=== PATIENT | female | born 1940 | race Caucasian/White ===

== ENCOUNTER 2020-04-29 08:42 | Inpatient (IN) ==
--- OUTSIDE RECORDS SUMMARY | 2020-04-29 08:46 | External Medical Summary | Continuity of Care Document ---
:1940 Author Name Micha Nayak Address Unavailable Unavailable , Care Team Providers Name Role Phone Souleymane Yousif DO Unavailable [email or web address] Unavailable Problems Active medical history not documented Allergies and Adverse Reactions Allergy history not documented Medications Medications not documented Procedures Procedures not documented Immunizations Immunizations not documented Plan of Treatment Planned Observations Planned Goals not documented Results No Known Results Results not documented
--- OUTSIDE RECORDS SUMMARY | 2020-04-29 08:46 | External Medical Summary | Continuity of Care Document ---
:1940 Author Name Micha Nayak Address Unavailable Unavailable , Care Team Providers Name Role Phone Souleymane Yousif DO Unavailable [email or web address] Unavailable Unavailable Problems Active medical history not documented Allergies and Adverse Reactions Allergy history not documented Medications Medications not documented Procedures Procedures not documented Immunizations Immunizations not documented Plan of Treatment Planned Observations Planned Goals not documented Results No Known Results Results not documented
[2020-04-29 09:47] LABS: Hemoglobin 13.4 g/dL (12.0-16.0); Immature Granulocytes # (auto) 0.01 K/uL (0.00-0.02); Immature Granulocytes % (auto) 0.1 %; Lymphocytes # (auto) 1.38 K/uL (1.2-3.4); Lymphocytes % (auto) 14.7 %; Mean Corpuscular Hemoglobin 30.7 pg (25-34); Mean Corpuscular Hgb Conc 33.5 g/dL (32-36); Mean Corpuscular Volume 91.5 fL (80-100); Mean Platelet Volume 9.3 fL (7.4-10.4); Monocytes % (auto) 6.4 %; Neutrophils # (auto) 7.38 K/uL (1.4-6.5); Neutrophils % (auto) 78.8 %; Platelet Count 417 K/uL (130-400); RDW Coefficient of Variation 13.1 % (11.5-14.5); Red Blood Count 4.37 M/uL (4.2-5.4); White Blood Count 9.37 K/uL (4.8-10.8)
[2020-04-29 09:54] LABS: Alanine Aminotransferase 19 U/L (12-78); Albumin Level 3.5 gm/dl (3.4-5.0); Aspartate Aminotransferase 19 U/L (15-37); BUN Creatinine Ratio 21.1 (10-20); Bilirubin Direct < 0.1 mg/dl (0-0.2); Blood Urea Nitrogen 19 mg/dl (7-18); Calcium 9.2 mg/dl (8.5-10.1); Carbon Dioxide 28 mmol/L (21-32); Chloride 100 mmol/L (98-107); Est GFR (African American) 68.2; Est GFR (Non-African American) 58.8; Glucose 114 mg/dl (70-99); Lipase 408 U/L (73-393); Sodium 135 mmol/L (136-145)
[2020-04-29 09:57] LABS: Alkaline Phosphatase 77 U/L (45-117); Bilirubin,Total 0.5 mg/dl (0.2-1); Total Protein 7.6 gm/dl (6.4-8.2)
--- NOTE | 2020-04-29 10:49 | XRay Report ---
XR chest 1V portable CLINICAL HISTORY: epigastric pain COMPARISON STUDY: Chest radiograph November 17, 2015. FINDINGS: Lung volumes are normal. Lungs are clear. There is no pneumothorax or pleural effusion. Car diac size is normal. Mediastinal contours are normal. There is no evidence for pulmonary edema. Incid ental note is made of cholecystectomy clips and partially visualized lumbar spine hardware. IMPRESSION: No acute cardiopulmonary findings. ACT 112: Negative or not required by law. Electronically signed by: Sunil Call M.D. 04/29/2020 10:48 AM
[2020-04-29] MEDS ORDERED: IOVERSOL 100ml IV PRN (11:16)
--- NOTE | 2020-04-29 11:49 | CT Scan Report ---
CT OF THE ABDOMEN AND PELVIS WITH CONTRAST CLINICAL HISTORY: Epigastric pain. Bilious vomiting. COMPARISON STUDY: Upper GI series August 20, 2010. TECHNIQUE: Following IV administration of 93 mL of Optiray-320, axial images of the abdomen and pelvi s were obtained from the lung bases to the proximal femurs. Images were reviewed in the axial, sagitt al, and coronal planes. IV contrast was administered without complication. Automated exposure contro l was utilized for the study. A dose lowering technique was utilized adhering to the principles of A ALAN. CT DOSE: 260.62 mGy.cm FINDINGS: Lung bases are unremarkable. No pneumatosis, free air or portal venous gas is present. Ther e is no biliary ductal dilatation status post cholecystectomy. The spleen, adrenal glands, kidneys an d pancreas are normal. There is no peripancreatic infiltration. Chronic diverticulosis is noted. Ther e is also small bowel diverticulosis. There is no evidence for acute diverticulitis. The proximal to mid small bowel is moderately dilated and fluid-filled. A transition point within the right mid abdom en is noted on axial image 148 of 416 with small bowel feces sign. Distal small bowel is decompressed . There is mild wall thickening at the site of obstruction, a nonspecific finding. There is no lympha denopathy. Mild bladder wall thickening is noted. No suspicious osseous lesions are present. There ar e postoperative findings within the lumbar spine. A right internal hernia contains a loop of small sorin wel without resultant bowel obstruction. IMPRESSION: 1. Findings consistent with a moderate grade small bowel obstruction with transition point within the right mid abdomen. Nonspecific mild wall thickening at site of obstruction with small bowel feces si gn. 2. Loop of small bowel slightly extends into a right inguinal hernia which does not result in the obs truction. 3. Colonic and small bowel diverticulosis without evidence for acute diverticulitis. ACT 112: Negative or not required by law. Electronically signed by: Sunil Call M.D. 04/29/2020 11:47 AM
--- NOTE | 2020-04-29 13:20 | History & Physical Report ---
Date of Service April 29, 2020 Assessment & Plan (1) Bilious vomiting with nausea: (2) SBO (small bowel obstruction): This is an 80 yr old F who has a significant PMH of multiple sclerosis, Depression, osteoporosis, Dementia, neurogenic bladder occasional straight cath required who presents to ED 2/2 to N/V and weakness x 3 days. In ED pt remained hemodynamically stable. Imaging revealed moderate grade small bowel obstruction with transition point within the right mid abdomen. Nonspecific mild wall thickening at site of obstruction with small bowel feces sign. General surgery was consulted and NG tube was placed. She was hypokalemic with K of 3.0 and lipase elevated at 408. admit to [facility] continue NPO consult surgery NG tube placed - kub ordered to confirm placement repeat kub in a.m. IVF 75cc/hr + 20meq kcl monitor output prn antiemetics and analgesia pt takes tylenol #3 on daily basis and has for ~ 40 years, confirmed with PDMP try to limit narcotic given SBO follow labs (3) Electrolyte abnormality: hyponatremia and hypokalemia 135 and 3.0 respectively replete with K rider 10meq x 4 along with supplementation in IVF monitor K level (4) Multiple sclerosis: no acute flare, slowly progressive MS mostly with gait disturbance ataxia to the R with some cognitive impairment follows [facility] neurology (5) Dysthymic disorder: continue prozac when able to tolerate po (6) Osteoporosis: on calcium + vit D supplement as outpt (7) Neurogenic bladder: occassionally self caths prn monitor straight cath prn order placed (8) DVT prophylaxis: SQ heparin Q12h Disposition: admit to [facility] Follow up: PCP Dr. Lewis upon discharge Pt was seen and examined in collaboration with Dr. Weiner, please see addendum History of Present Illness Chief Complaint: N/V and weakness x 3 days. Primary Care Provider: Yinka Lewis, This is an 80 yr old F who has a significant PMH of multiple sclerosis, Depression, osteoporosis, Dementia, neurogenic bladder occasional straight cath required who presents to ED 2/2 to N/V and weakness x 3 days. Last time she tolerated PO intake was 6/4. She started noticing nausea and becoming increasingly weak. Further admits to emesis, 5 episodes yesterday, bilious emesis and last episode 0300. She presented to urgent care this morning who referred her to ED for further eval. She denies any recent f/c/s, dizziness, lightheaded, chest pain, sob, cough, palpitations, hemoptysis, hematemesis, abdominal pain, melena, hematochezia. Last BM 2-3 days ago. Takes miralax daily due to constipation. Denies any prior hx of SBO. Prior hx of abd surgeries including csection x 2, hysterectomy, appendectomy and cholecystectomy. She does admit to incontinence and HS straight cath due to neurogenic bladder from multiple back surgeries in the past. In ED pt remained hemodynamically stable. Imaging revealed moderate grade small bowel obstruction with transition point within the right mid abdomen. Nonspecific mild wall thickening at site of obstruction with small bowel feces sign. General surgery was consulted and NG tube was placed. She was hypokalemic with K of 3.0 and lipase elevated at 408. Allergies Allergy/AdvReac Type Severity Reaction Status Date / Time scopolamine Allergy Unknown JOINT SWELL Verified 04/29/20 09:36 Home Medications Home Medications Medication Instructions Recorded Confirmed Type acetaminophen-codeine 1 tab PO Q4H PRN 04/29/20 04/29/20 History aspirin 81 mg PO QAM 04/29/20 04/29/20 History calcium carbonate-vitamin D3 1 tab PO QAM 04/29/20 04/29/20 History [Calcium 600 + D(3)] fluoxetine 40 mg PO QAM 04/29/20 04/29/20 History multivitamin 1 tab PO QAM 04/29/20 04/29/20 History omeprazole magnesium [Prilosec OTC] 20 mg PO QAM 04/29/20 04/29/20 History polyethylene glycol 3350 [Miralax] 17 g PO QAM 04/29/20 04/29/20 History trazodone 50 mg PO HS 04/29/20 04/29/20 History Past Med/Surg History Medical History (Updated 04/29/20 @ 13:40 by Sara Bateman PA-C) Dysthymic disorder (Chronic) Multiple sclerosis (Chronic) Osteoporosis (Chronic) Urinary, incontinence, stress female (Chronic) Surgical History (Updated 04/29/20 @ 13:16 by Sara L. Pataky, PA-C) History of appendectomy (Resolved) History of back surgery (Resolved) "x5" History of section (Resolved) x 2 History of cholecystectomy (Resolved) History of tonsillectomy (Resolved) History of total hysterectomy (Resolved) Family History Father Stroke Coronary heart disease Mother CHF (congestive heart failure) Brother Metastatic melanoma Sister Lung cancer Social History (Updated 04/29/20 @ 13:18 by Sara Baetman PA-C) Preferred Language: Emirati Communication Ability: Effective Beliefs That Will Affect Care: Muslim Muslim Beliefs: Jehovah'S Witness- would like to see a preist marital status: Current Living Situation: Spouse current occupational status: retired Feels Safe at Home: Yes Smoking Status: Former smoker Hx Alcohol Use: Yes Alcohol type: wine Hx Substance Use: No Review of Systems Review of Systems: All systems reviewed & are unremarkable except as noted in HPI & below Physical Exam Physical Exam: Constitutional: Thin, petite, F, vitals as above, +discomfort 2/2 to NG Tube, sitting up in bed, pleasant, conversing easily Head: Normocephalic, Atraumatic Eyes: PERRL, conjunctivae normal, anicteric sclerae ENMT: external ear and nose normal, oropharynx normal +NGT Neck: trachea midline, no thyromegaly normal visual inspection Respiratory: normal respiratory effort, lungs clear to auscultation, no wheeze, rales, rhonchi. Normal insp/exp effort, no accessory muscle use Cardiovascular: RRR, no murmur, no edema Vessels: no JVD or carotid bruit Chest: normal inspection of chest Abdomen:+BS x 4, normoactive, soft, NT, no hepatosplenomegaly Musculoskeletal: no cyanosis or clubbing, extremities motor strength 5/5 Skin: no rashes, warm and dry normal turgor Neurologic: PERRL, EOMI, accommodation nl, no face palsy, no dysarthria CN's II-XI intact bilaterally and moves all extremities Psychiatric: A+Ox3, euthymic affect Lymphatic: no cervical or axillary lymphadenopathy : deferred Results & Data Results & Data ([facility]) Vital Signs (Past 12 Hours) Vital Signs Temp Pulse Pulse Resp BP BP Pulse Ox 04/29/20 12:31 81 20 160/54 H 99 04/29/20 10:43 86 20 143/68 H 98 04/29/20 08:58 77 20 143/73 H 97 04/29/20 08:52 37.0 C 82 16 120/52 L 99 Laboratory Results Short CBC 04/29/20 Range/Units 09:05 WBC 9.37 (4.8-10.8) K/uL Hgb 13.4 (12.0-16.0) g/dL Hct 40.0 (37-47) % Plt Count 417 H (130-400) K/uL BMP 04/29/20 09:05 Sodium 135 L Potassium 3.0 L Chloride 100 Carbon Dioxide 28 BUN 19 H Creatinine 0.92 Glucose 114 H Calcium 9.2 Cardiac Enzymes 04/29/20 Range/Units 09:05 Troponin I < 0.015 (0-0.045) ng/ml Liver Function 04/29/20 Range/Units 09:05 Total Bilirubin 0.5 (0.2-1) mg/dl Direct Bilirubin < 0.1 (0-0.2) mg/dl AST 19 (15-37) U/L ALT 19 (12-78) U/L Alkaline Phosphatase 77 (45-117) U/L Albumin 3.5 (3.4-5.0) gm/dl Diagnostic Findings CT Abd/pelvis: 1. Findings consistent with a moderate grade small bowel obstruction with transition point within the right mid abdomen. Nonspecific mild wall thickening at site of obstruction with small bowel feces sign. 2. Loop of small bowel slightly extends into a right inguinal hernia which does not result in the obstruction. 3. Colonic and small bowel diverticulosis without evidence for acute diverticulitis. CXR: IMPRESSION: No acute cardiopulmonary findings. Medications Administered Ioversol (Optiray 320 100ml) 93 ml IV ONCE PRN PRN Reason: Interaction Checking Stop: 05/03/20 11:15 Last Admin: 04/29/20 11:16 Dose: 93 ml Documented by: [id number] ECG Rate (beats per minute): 78 Rhythm: normal sinus Findings: + prolonged QT (471ms) Code Status & VTE Plan Code Status Full Code VTE Prophylaxis Plan VTE Prophylaxis will be ordered: Yes Supervising Physician Co-Signing Physician Notes Attending Addendum: care coordinated with NORM Ray please refer to her notes for full details, I agree with her notes patient seen and examined, records reviewed by myself as well on exam, patient seen sitting up in bed, NG tube in place, awake and alert, uncomfortable secondary to the NG tube but otherwise not in distress, pleasant Denies active abdominal pain, nausea, shortness of breath, chest pain, headache, chills no other symptoms VS noted and reviewed oriented x 3 , not in distress, speaks in sentences with no effort nor accessory muscle use normal rate, regular rhythm, no murmurs clear breath sounds bilaterally non distended, soft, hypoactive bowel sounds, nontender no bipedal edema, erythema, warmth no focal neuro deficits WBC 9.3 Hg [address] abd/pelvis: 1. Findings consistent with a moderate grade small bowel obstruction with transition point within the right mid abdomen. Nonspecific mild wall thickening at site of obstruction with small bowel feces sign. 2. Loop of small bowel slightly extends into a right inguinal hernia which does not result in the obstruction. 3. Colonic and small bowel diverticulosis without evidence for acute diverticulitis. ASSESSMENT AND PLAN 80-year-old female with history of multiple sclerosis, intermittent neurogenic bladder, other problems noted above presenting with nausea and vomiting x3 days. Small bowel obstruction, moderate grade, transition point right mid abdomen Risk factor: Previous surgeries: Cholecystectomy and sections Bowel rest, IV fluids, replete electrolytes, NG tube for decompression, repeat KUB tomorrow General surgery consulted Hypokalemia Replace with IV potassium Monitor other diagnoses and plan of care as per NORM Ray'kenneth notes Gage Weiner MD
[2020-04-29] MEDS ORDERED: ACETAMINOPHEN 1,000 MG/100 ML VIAL IV PRN (13:57)
[2020-04-29] MEDS ORDERED: MoRPHine SULFATE 2 MG/ML CARP IV PRN (13:57)
[2020-04-29] MEDS ORDERED: ONDANSETRON INJ 2 MG/ML 2 ML VIAL IV PRN (13:57)
--- NOTE | 2020-04-29 14:09 | XRay Report ---
KUB HISTORY: Status post placement of an enteric tube ng tube placement COMPARISON: CT abdomen and pelvis of same day FINDINGS: An enteric tube is noted distal tip projected over the lower chest midline in the expected location of the distal esophagus. Side-port is noted a few centimeters below the eleuterio. Advancement of at least 16 cm is recommended. Calcific plaque of the thoracic aorta arch. Interbody cassi and screw fusion and discectomy changes of the lumbar spine. Cholecystectomy. Dilated stomach and upper abdomi nal small bowel. No pneumatosis or pneumoperitoneum identified. IMPRESSION: Tip of enteric tube projects over the distal esophagus. Advancement with follow-up imaging recommende d. ACT 112: Negative or not required by law. The above report was generated using voice recognition software. It may contain grammatical, syntax o r spelling errors. Electronically signed by: Naman Pineda M.D. 04/29/2020 2:08 PM
[2020-04-29] MEDS ORDERED: ACETAMINOPHEN 65 ML IV PRN (14:16)
[2020-04-29] MEDS: FAMOTIDINE 20 MG in SYRINGE 3 ML IV SCH (14:36)
[2020-04-29] MEDS: POTASSIUM CHLORIDE / WTR 10 MEQ/100 ML PLCT IV SCH ×4 (14:37→17:50)
--- NOTE | 2020-04-29 15:59 | XRay Report ---
KUB HISTORY: NG tube advanced COMPARISON: KUB 04/29/2020. FINDINGS: The bowel gas pattern is unremarkable. There are no dilated loops of small bowel to suggest an obstruction. No renal calculi. No ureteral calculi. No pneumoperitoneum or pneumatosis. NG tube now resides within the body of the stomach. Lumbar spinal fusion hardware is again noted. Prior dieudonne cystectomy. IMPRESSION: NG tube resides within the body of the stomach. ACT 112: Negative or not required by law. Electronically signed by: Dominguez Floyd M.D. 04/29/2020 3:58 PM
--- NOTE | 2020-04-29 16:00 | Surgery Consultation ---
Date of Consultation April 29, 2020 Assessment & Plan (1) SBO (small bowel obstruction): 80 year-old female presented to emergency department with two day history of bilious projectile vomiting and weakness. CT scan showing evidence of moderate SBO in mid abdomen with transition point and small bowel wall thickening with small bowel feces sign. NGT placed given persistent vomiting. No leukocytosis. Afebrile. Abdomen soft nondistended. Plan: Conservative management recommended at this time: NPO, NGT To LIS, pain management as needed avoid narcotics if possible, IV fluids, replace potassium. advance NGT per KUB by 16 cm. Repeat KUB in am already ordered will follow along Discussed with Dr. Fernandez who is to evaluate patient later today, please see addendum for further recommendations/plan. Supervising Physician Co-Signing Physician Notes I interviewed and examined this patient and I agree with the above note. She had mild abdominal discomfort but had nausea and vomiting. CT is again noted. She feels better this afternoon. The pain is almost completely resolved. Her abdomen is not distended. She has minimal tenderness. I agree with conservative management for now. Most recent KUB from today showed a non- obstructive bowel pattern. History of Present Illness Reason for Consultation: SBO Requesting Physician: MD Husam Attending Physician: Gage Weiner MD History of Present Illness Sharon is an 80 year old female who presented to emergency department with complaint of vomiting x 2 days and weakness. She states she had ham for dinner two nights ago and was concerned it was bad. No other family members sick at home. States she had projectile vomiting mostly yellow and green in nature. Last bowel movement yesterday morning, normal and formed. 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 No blood in stools or black/tarry stools. Denies of any abdominal pain or significant abdominal bloating. She has had hysterectomy, cholecystectomy, appendectomy, and x 2. Sharon states she is feeling better now after the tube was placed. Has not vomited since admission. No abdominal pain. Not passing gas however. Compla ining of right sided sore throat, trouble swallowing with NGT tube. Allergies Allergy/AdvReac Type Severity Reaction Status Date / Time scopolamine Allergy Unknown JOINT SWELL Verified 04/29/20 09:36 Home Medications Home Medications Medication Instructions Recorded Confirmed Type acetaminophen-codeine 1 tab PO Q4H PRN 04/29/20 04/29/20 History aspirin 81 mg PO QAM 04/29/20 04/29/20 History calcium carbonate-vitamin D3 1 tab PO QAM 04/29/20 04/29/20 History [Calcium 600 + D(3)] fluoxetine 40 mg PO QAM 04/29/20 04/29/20 History multivitamin 1 tab PO QAM 04/29/20 04/29/20 History omeprazole magnesium [Prilosec OTC] 20 mg PO QAM 04/29/20 04/29/20 History polyethylene glycol 3350 [Miralax] 17 g PO QAM 04/29/20 04/29/20 History trazodone 50 mg PO HS 04/29/20 04/29/20 History Patient History Medical History Dysthymic disorder (Chronic) Multiple sclerosis (Chronic) Osteoporosis (Chronic) Urinary, incontinence, stress female (Chronic) Surgical History History of appendectomy (Resolved) History of back surgery (Resolved) "x5" History of section (Resolved) x 2 History of cholecystectomy (Resolved) History of tonsillectomy (Resolved) History of total hysterectomy (Resolved) Family History Father Stroke Coronary heart disease Mother CHF (congestive heart failure) Brother Metastatic melanoma Sister Lung cancer Social History Preferred Language: Albanian Communication Ability: Effective Beliefs That Will Affect Care: Restoration Restoration Beliefs: Presybeterian- would like to see a preist marital status: Current Living Situation: Spouse current occupational status: retired Feels Safe at Home: Yes Smoking Status: Former smoker Hx Alcohol Use: Yes Alcohol type: wine Hx Substance Use: No Review of Systems Review of Systems: All systems reviewed & are unremarkable except as noted in HPI & below Physical Exam Constitutional: WD/WN, vitals as above no acute distress Respiratory: normal respiratory effort, lungs clear to auscultation + respiratory distress Cardiovascular: RRR, no murmur, no edema Gastrointestinal (Abdomen): Inspection/Auscultation: abdomen normal to inspection; abdomen not distended and + abnormal bowel sounds Percussion/Palpation: + abdomen tender (RUQ) and abdomen soft; no guarding and abdomen not rigid Skin: no rashes, warm and dry Psychiatric: Orientation: alert and oriented x 3 Results & Data Vital Signs (Past 12 Hours) Vital Signs Temp Pulse Pulse Resp BP BP Pulse Ox 04/29/20 15:37 36.5 C 93 H 19 138/70 95 04/29/20 14:28 74 04/29/20 13:59 36.8 C 73 18 134/83 96 04/29/20 12:31 81 20 160/54 H 99 04/29/20 10:43 86 20 143/68 H 98 04/29/20 08:58 77 20 143/73 H 97 04/29/20 08:52 37.0 C 82 16 120/52 L 99 Laboratory Results 04/29/20 04/29/20 04/29/20 Range/Units 09:05 09:05 09:05 WBC 9.37 (4.8-10.8) K/uL RBC 4.37 (4.2-5.4) M/uL Hgb 13.4 (12.0-16.0) g/dL Hct 40.0 (37-47) % MCV 91.5 (80-100) fL MCH 30.7 (25-34) pg MCHC 33.5 (32-36) g/dL RDW Std Deviation 44.0 (36.4-46.3) fL RDW Coeff of Swetha 13.1 (11.5-14.5) % Plt Count 417 H (130-400) K/uL MPV 9.3 (7.4-10.4) fL Immature Gran % (Auto) 0.1 % Neut % (Auto) 78.8 % Lymph % (Auto) 14.7 % [place] % (Auto) 6.4 % Eos % (Auto) 0.0 % Baso % (Auto) 0.0 % Immature Gran # (Auto) 0.01 (0.00-0.02) K/uL Neut # (Auto) 7.38 H (1.4-6.5) K/uL Lymph # (Auto) 1.38 (1.2-3.4) K/uL [place] # (Auto) 0.60 H (0.11-0.59) K/uL Eos # (Auto) 0.00 (0-0.5) K/uL Baso # (Auto) 0.00 (0-0.2) K/uL Sodium 135 L (136-145) mmol/L Potassium 3.0 L (3.5-5.1) mmol/L Chloride 100 (98-107) mmol/L Carbon Dioxide 28 (21-32) mmol/L Anion Gap 7.0 (3-11) BUN 19 H (7-18) mg/dl Creatinine 0.92 (0.6-1.2) mg/dl Est Cr Clr Drug Dosing 35.0 ml/min Est GFR ( Amer) 68.2 Est GFR (Non-Af Amer) 58.8 BUN/Creatinine Ratio 21.1 H (10-20) Glucose 114 H (70-99) mg/dl Calcium 9.2 (8.5-10.1) mg/dl Total Bilirubin 0.5 (0.2-1) mg/dl Direct Bilirubin < 0.1 (0-0.2) mg/dl AST 19 (15-37) U/L ALT 19 (12-78) U/L Alkaline Phosphatase 77 (45-117) U/L Troponin I < 0.015 (0-0.045) ng/ml Total Protein 7.6 (6.4-8.2) gm/dl Albumin 3.5 (3.4-5.0) gm/dl Lipase 408 H (73-393) U/L Diagnostic Findings CT OF THE ABDOMEN AND PELVIS WITH CONTRAST CLINICAL HISTORY: Epigastric pain. Bilious vomiting. COMPARISON STUDY: Upper GI series August 20, 2010. TECHNIQUE: Following IV administration of 93 mL of Optiray-320, axial images of the abdomen and pelvis were obtained from the lung bases to the proximal femurs. Images were reviewed in the axial, sagittal, and coronal planes. IV contrast was administered without complication. Automated exposure control was utilized for the study. A dose lowering technique was utilized adhering to the principles of ALARA. CT DOSE: 260.62 mGy.cm FINDINGS: Lung bases are unremarkable. No pneumatosis, free air or portal venous gas is present. There is no biliary ductal dilatation status post cholecystectomy. The spleen, adrenal glands, kidneys and pancreas are normal. There is no peripancreatic infiltration. Chronic diverticulosis is noted. There is also small bowel diverticulosis. There is no evidence for acute diverticulitis. The proximal to mid small bowel is moderately dilated and fluid- filled. A transition point within the right mid abdomen is noted on axial image 148 of 416 with small bowel feces sign. Distal small bowel is decompressed. There is mild wall thickening at the site of obstruction, a nonspecific finding. There is no lymphadenopathy. Mild bladder wall thickening is noted. No suspicious osseous lesions are present. There are postoperative findings within the lumbar spine. A right internal hernia contains a loop of small bowel without resultant bowel obstruction. IMPRESSION: 1. Findings consistent with a moderate grade small bowel obstruction with transition point within the right mid abdomen. Nonspecific mild wall thickening at site of obstruction with small bowel feces sign. 2. Loop of small bowel slightly extends into a right inguinal hernia which does not result in the obstruction. 3. Colonic and small bowel diverticulosis without evidence for acute diverticulitis.
--- NOTE | 2020-04-29 17:09 | Electrocardiogram Report ---
Test Reason : Blood Pressure : / mmHG Vent. Rate : 078 BPM Atrial Rate : 078 BPM P-R Int : 172 ms QRS Dur : 086 ms QT Int : 414 ms P-R-T Axes : 068 -58 055 degrees QTc Int : 471 ms Poor data quality, interpretation may be adversely affected Normal sinus rhythm Left anterior fascicular block Abnormal ECG When compared with ECG of 03-JUN-2016 16:06, No significant change was found Confirmed by Jakub Mast ([id number]) on 04/29/2020 5:09:04 PM Referred By: REFERRED SELF Confirmed By:Jakub Mast
--- NOTE | 2020-04-29 17:37 | Emergency Department Note ---
History of Present Illness General Chief Complaint: Vomiting Stated Complaint: VOMITING Time Seen by Provider: 04/29/20 09:40 History of Present Illness Provider Complaint: abdominal pain Onset (ago): 5 day(s) Pain Consistency: constant Location: diffuse Radiation: none Severity: severe Maximum Pain Intensity: 9 Current Pain Intensity: 10 Quality: + stabbing, + aching, + sharp and + dull Relieved By: + nothing Exacerbated By: + eating Associated Symptoms: + nausea and + vomiting; no fever, no chills, no dysuria, no hematemesis, no hematochezia, no melena, no hematuria, no chest pain and no breathing difficulty Home Medications Home Medications Medication Instructions Recorded Confirmed Type acetaminophen-codeine 1 tab PO Q4H PRN 04/29/20 04/29/20 History aspirin 81 mg PO QAM 04/29/20 04/29/20 History calcium carbonate-vitamin D3 1 tab PO QAM 04/29/20 04/29/20 History [Calcium 600 + D(3)] fluoxetine 40 mg PO QAM 04/29/20 04/29/20 History multivitamin 1 tab PO QAM 04/29/20 04/29/20 History omeprazole magnesium [Prilosec OTC] 20 mg PO QAM 04/29/20 04/29/20 History polyethylene glycol 3350 [Miralax] 17 g PO QAM 04/29/20 04/29/20 History trazodone 50 mg PO HS 04/29/20 04/29/20 History Allergies Allergy/AdvReac Type Severity Reaction Status Date / Time scopolamine Allergy Unknown JOINT SWELL Verified 04/29/20 09:36 Past Med/Surg History Medical History Dysthymic disorder (Chronic) Multiple sclerosis (Chronic) Osteoporosis (Chronic) Urinary, incontinence, stress female (Chronic) Surgical History History of appendectomy (Resolved) History of back surgery (Resolved) "x5" History of section (Resolved) x 2 History of cholecystectomy (Resolved) History of tonsillectomy (Resolved) History of total hysterectomy (Resolved) Family History Father Stroke Coronary heart disease Mother CHF (congestive heart failure) Brother Metastatic melanoma Sister Lung cancer Social History Preferred Language: Ukrainian Communication Ability: Effective Beliefs That Will Affect Care: Cheondoism Cheondoism Beliefs: Church- would like to see a preist marital status: Current Living Situation: Spouse current occupational status: retired Feels Safe at Home: Yes Smoking Status: Former smoker Hx Alcohol Use: Yes Alcohol type: wine Hx Substance Use: No Review of Systems A total of 10 systems reviewed and were otherwise negative Physical Exam Vital Signs: Vital Signs - 24 hr 04/29/20 08:52 04/29/20 08:58 04/29/20 10:43 Temperature 37.0 C Temperature Source Oral Pulse Rate 82 77 Pulse Rate [Right Finger] 86 Pulse Rate from Sp O2 Sensor 78 Respiratory Rate 16 20 20 Respiratory Effort / Characteristics Non-Labored Sponta neous Respiratory Depth Normal Respiratory Patter n Regular Blood Pressure 120/52 L 143/73 H Blood Pressure [Ri ght Arm] 143/68 H Blood Pressure Janeth n 74 84 Blood Pressure Janeth n [Right Arm] 93 Pulse Oximetry 99 97 98 Oxygen Delivery Me thod Room Air Sepsis Recent Feve r Within 48 Hours No Sepsis New/Unexpla ined Change in Men zunilda Status No Sepsis Action Take n by Nursing No Action Required Physical Exam: Physical Exam GENERAL: She is oriented to person, place, and time. She appears well-developed and well-nourished. She does not appear distressed. She is holding a emesis bag that contains bilious emesis from when she threw up prior to my arrival. HENT: Exam performed. -Head: Normocephalic and atraumatic. -Right Ear: External ear normal. No mastoid tenderness. -Left Ear: External ear normal. No mastoid tenderness. -Mouth/Throat: The oropharynx is clear and moist. No trismus in the jaw. No dental abscesses or uvula swelling. No oropharyngeal exudate or tonsillar abscesses. EYES: Conjunctivae and EOM are normal. Pupils are equal, round, and reactive to light. Right eye exhibits no discharge. Left eye exhibits no discharge. No scleral icterus. NECK: Normal range of motion. Neck supple. No JVD present. No spinous process tenderness present. No carotid bruit present. No rigidity. No tracheal deviation and normal range of motion present. No Brudzinski's sign and no Kernig's sign noted. CV: Normal rate, regular rhythm, normal heart sounds and intact distal pulses. There is no peripheral edema. Palpable radial pulses bue. PULM/CHEST: Effort normal and breath sounds normal. No respiratory distress. No stridor. She has no wheezes. She has no rales. -Chest Wall: She exhibits no tenderness. ABD: The abdomen is soft. Bowel sounds are normal. She has no distension. No mass is present. Pain on palpation of the epigastric area. There is no rebound, no guarding, no Barbosa's sign and no tenderness at McBurney's point. Rovsig negative MUSC/SKEL: Normal range of motion. There is no peripheral edema, tenderness or deformity. LYMPH: No cervical adenopathy. NEURO: She is alert and oriented to person, place, and time. She has normal stre ngth. No cranial nerve deficit or sensory deficit. Coordination and gait normal. GCS eye subscore is 4. GCS verbal subscore is 5. GCS motor subscore is 6. Cerebellar tests wnl. SKIN: Skin is warm and dry. She is not diaphoretic. PSYCH: She has a normal mood and affect. Behavior is normal. Judgment and thought content normal. Course Course 1015: The patient was evaluated in room C8. A complete history and physical exam was performed. Cardiac monitoring: An order was placed for continuous cardiac monitoring. The monitor shows a rate of 90 with rhythm 1200: Vital signs stable. Labs within normal limits with exception of potassium of 3.0 thought to be due to patient's continued vomiting. CT does show small bowel obstruction. I did discuss with general surgery Mireya Borjas PA-C for Dr. Fernandez. She states that the patient should be admitted to medicine. She recommends NG tube being placed. I did discuss with [facility] hospitalist team Kadi Steiner PA-C as well as Dr. De La Vega who agreed to the admission. Administered Medications Famotidine 20 mg/ Syringe 5 mls @ 2.5 mls/min IV DAILY EDGAR Stop: 05/29/20 13:56 Last Admin: 04/29/20 14:36 Dose: 2.5 mls/min Documented by: [id number] Potassium Chloride (K Dayron / Wtr) 10 meq in 100 mls @ 100 mls/hr IV Q1H [facility] Stop: 04/29/20 17:59 Last Admin: 04/29/20 16:42 Dose: 100 mls/hr Documented by: [id number] Infusion: 04/29/20 16:32 Dose: 100 mls/hr Documented by: [id number] Admin: 04/29/20 15:32 Dose: 100 mls/hr Documented by: [id number] Infusion: 04/29/20 15:32 Dose: 100 mls/hr Documented by: [id number] Admin: 04/29/20 14:37 Dose: 100 mls/hr Documented by: [id number] Discontinued Medications Ioversol (Optiray 320 100ml) 93 ml IV ONCE PRN PRN Reason: Interaction Checking Stop: 05/03/20 11:15 Last Admin: 04/29/20 11:16 Dose: 93 ml Documented by: [id number] Medical Decision Making Laboratory Data Result diagrams: 04/29/20 09:05 04/29/20 09:05 Lab Results 04/29/20 04/29/20 04/29/20 Range/Units 09:05 09:05 09:05 WBC 9.37 (4.8-10.8) K/uL RBC 4.37 (4.2-5.4) M/uL Hgb 13.4 (12.0-16.0) g/dL Hct 40.0 (37-47) % MCV 91.5 (80-100) fL MCH 30.7 (25-34) pg MCHC 33.5 (32-36) g/dL RDW Std Deviation 44.0 (36.4-46.3) fL RDW Coeff of Swetha 13.1 (11.5-14.5) % Plt Count 417 H (130-400) K/uL MPV 9.3 (7.4-10.4) fL Immature Gran % (Auto) 0.1 % Neut % (Auto) 78.8 % Lymph % (Auto) 14.7 % [place] % (Auto) 6.4 % Eos % (Auto) 0.0 % Baso % (Auto) 0.0 % Immature Gran # (Auto) 0.01 (0.00-0.02) K/uL Neut # (Auto) 7.38 H (1.4-6.5) K/uL Lymph # (Auto) 1.38 (1.2-3.4) K/uL [place] # (Auto) 0.60 H (0.11-0.59) K/uL Eos # (Auto) 0.00 (0-0.5) K/uL Baso # (Auto) 0.00 (0-0.2) K/uL Sodium 135 L (136-145) mmol/L Potassium 3.0 L (3.5-5.1) mmol/L Chloride 100 (98-107) mmol/L Carbon Dioxide 28 (21-32) mmol/L Anion Gap 7.0 (3-11) BUN 19 H (7-18) mg/dl Creatinine 0.92 (0.6-1.2) mg/dl Est Cr Clr Drug Dosing 35.0 ml/min Est GFR ( Amer) 68.2 Est GFR (Non-Af Amer) 58.8 BUN/Creatinine Ratio 21.1 H (10-20) Glucose 114 H (70-99) mg/dl Calcium 9.2 (8.5-10.1) mg/dl Total Bilirubin 0.5 (0.2-1) mg/dl Direct Bilirubin < 0.1 (0-0.2) mg/dl AST 19 (15-37) U/L ALT 19 (12-78) U/L Alkaline Phosphatase 77 (45-117) U/L Troponin I < 0.015 (0-0.045) ng/ml Total Protein 7.6 (6.4-8.2) gm/dl Albumin 3.5 (3.4-5.0) gm/dl Lipase 408 H (73-393) U/L Imaging Data Radiologist's Impression: CT OF THE ABDOMEN AND PELVIS WITH CONTRAST CLINICAL HISTORY: Epigastric pain. Bilious vomiting. COMPARISON STUDY: Upper GI series August 20, 2010. TECHNIQUE: Following IV administration of 93 mL of Optiray-320, axial images of the abdomen and pelvis were obtained from the lung bases to the proximal femurs. Images were reviewed in the axial, sagittal, and coronal planes. IV contrast was administered without complication. Automated exposure control was utilized for the study. A dose lowering technique was utilized adhering to the principles of ALARA. CT DOSE: 260.62 mGy.cm FINDINGS: Lung bases are unremarkable. No pneumatosis, free air or portal venous gas is present. There is no biliary ductal dilatation status post cholecystectomy. The spleen, adrenal glands, kidneys and pancreas are normal. There is no peripancreatic infiltration. Chronic diverticulosis is noted. There is also small bowel diverticulosis. There is no evidence for acute diverticulitis. The proximal to mid small bowel is moderately dilated and fluid- filled. A transition point within the right mid abdomen is noted on axial image 148 of 416 with small bowel feces sign. Distal small bowel is decompressed. There is mild wall thickening at the site of obstruction, a nonspecific finding. There is no lymphadenopathy. Mild bladder wall thickening is noted. No suspicious osseous lesions are present. There are postoperative findings within the lumbar spine. A right internal hernia contains a loop of small bowel without resultant bowel obstruction. IMPRESSION: 1. Findings consistent with a moderate grade small bowel obstruction with transition point within the right mid abdomen. Nonspecific mild wall thickening at site of obstruction with small bowel feces sign. 2. Loop of small bowel slightly extends into a right inguinal hernia which does not result in the obstruction. 3. Colonic and small bowel diverticulosis without evidence for acute diverticulitis. ACT 112: Negative or not required by law. Electronically signed by: Sunil Call M.D. 04/29/2020 11:47 AM Dictated: 04/29/20 1127 Transcribed: 04/29/20 1128 ECG Data Indication: abdominal pain Rate (beats per minute): 78 Rhythm: normal sinus Findings: no ST depression and no ST elevation MDM Narrative Vital signs stable. Labs within normal limits with exception of potassium of 3.0 thought to be due to patient's continued vomiting. CT does show small bowel obstruction. I did discuss with general surgery Mireya Borjas PA-C for Dr. Fernandez. She states that the patient should be admitted to medicine. She recommends NG tube being placed. I did discuss with [facility] hospitalist team Kadi Steiner PA-C as well as Dr. De La Vega who agreed to the admission. Impression & Plan SBO (small bowel obstruction) Discharge Plan Visit Data *Final* Discharge Date/Time: 04/29/20 13:16 Chief Complaint: Vomiting Stated Complaint: VOMITING ED Provider: Javier Lebron Discharge Problem: SBO (small bowel obstruction) Patient Disposition: Admitted As Inpatient Discharge Instructions Interventions: ED Discharge Assessment Last Done: 04/29/20 13:16
[2020-04-29] MEDS: NSS + 20MEQ KCL 20 MEQ/1,000 ML BAG IV SCH (19:09)
[2020-04-29] MEDS: HEPARIN SOD 5,000 UNIT/0.5 ML VIAL SQ SCH (20:15)
[2020-04-30 01:03] LABS: Appearance Urine Cloudy (Clear); Bacteria Urine Automated 4+ (Negative); Bilirubin Urine Negative (Negative); Blood Urine Negative (Negative); Color Urine Yellow; Epithelial Cell Urine Auto >30 /lpf (0-5); Glucose Urine UA Negative (Negative); Ketones Urine 1+ (Negative); Leukocyte Esterase Urine 2+ (Negative); Nitrite Urine Positive (Negative); Protein Urine Negative (Negative); RBC Urine Automated 0-4 /hpf (0-4); Specific Gravity Urine 1.038 (1.000-1.030); Urobilinogen Urine Negative (Negative); pH Urine 6.5 (4.5-7.5)
[2020-04-30] MEDS: NSS + 20MEQ KCL 20 MEQ/1,000 ML BAG IV SCH ×3 (05:47→22:37)
--- NOTE | 2020-04-30 07:15 | XRay Report ---
KUB CLINICAL HISTORY: Small bowel obstruction. COMPARISON STUDY: CT of the abdomen and pelvis and KUB April 29, 2020. FINDINGS: Tip of nasogastric tube projects over the distal stomach. There is contrast within the blad oliva from recent contrast-enhanced CT. Several loops of mildly dilated small bowel are noted. The find ings suggest a persistent small bowel obstruction IMPRESSION: Several loops of mildly dilated small bowel which suggest a persistent small bowel obstr uction. ACT 112: Negative or not required by law. Electronically signed by: Sunil Call M.D. 04/30/2020 7:14 AM
[2020-04-30 07:43] LABS: Basophils # (auto) 0.01 K/uL (0-0.2); Basophils % (auto) 0.1 %; Eosinophils # (auto) 0.01 K/uL (0-0.5); Eosinophils % (auto) 0.1 %; Hematocrit (blood only) 39.3 % (37-47); Immature Granulocytes # (auto) 0.02 K/uL (0.00-0.02); Immature Granulocytes % (auto) 0.2 %; Lymphocytes # (auto) 1.32 K/uL (1.2-3.4); Lymphocytes % (auto) 13.9 %; Mean Corpuscular Hemoglobin 30.2 pg (25-34); Mean Corpuscular Hgb Conc 33.1 g/dL (32-36); Mean Corpuscular Volume 91.2 fL (80-100); Mean Platelet Volume 9.4 fL (7.4-10.4); Monocytes # (auto) 0.68 K/uL (0.11-0.59); Monocytes % (auto) 7.1 %; Neutrophils # (auto) 7.49 K/uL (1.4-6.5); Neutrophils % (auto) 78.6 %; Platelet Count 381 K/uL (130-400); RDW Coefficient of Variation 13.2 % (11.5-14.5); Red Blood Count 4.31 M/uL (4.2-5.4); White Blood Count 9.53 K/uL (4.8-10.8)
--- NOTE | 2020-04-30 08:10 | XRay Report ---
ESTEFANÍA CLINICAL HISTORY: NG placement COMPARISON STUDY: ESTEFANÍA April 29, 2020 at 3:39 PM. FINDINGS: The tip of the nasogastric tube is within the body of the stomach. Small bowel dilatation i s partially imaged on this exam. IMPRESSION: 1. Tip of nasogastric tube within the body of the stomach. 2. Several loops of dilated small bowel which suggest a small bowel obstruction. ACT 112: Negative or not required by law. Electronically signed by: Sunil Call M.D. 04/30/2020 8:08 AM
[2020-04-30 08:24] LABS: Albumin Level 2.9 gm/dl (3.4-5.0); BUN Creatinine Ratio 21.7 (10-20); Calcium 8.4 mg/dl (8.5-10.1); Creatinine Clr Calc Pharmacy 41.9 ml/min; Est GFR (African American) 84.5; Est GFR (Non-African American) 72.9; Magnesium 2.2 mg/dl (1.8-2.4); Potassium 3.4 mmol/L (3.5-5.1)
[2020-04-30 08:27] LABS: Albumin Globulin Ratio 0.8 (0.9-2); Bilirubin,Total 0.4 mg/dl (0.2-1); Globulin 3.6 gm/dl (2.5-4.0); Total Protein 6.5 gm/dl (6.4-8.2)
[2020-04-30] MEDS: CHLORASEPTIC 1.4% SOLN 180 ML BTL MT PRN ×2 (09:02→13:51)
[2020-04-30] MEDS: HEPARIN SOD 5,000 UNIT/0.5 ML VIAL SQ SCH ×2 (09:03→20:59)
--- NOTE | 2020-04-30 09:07 | Hospitalist Progress Note ---
Date of Service April 30, 2020 Assessment & Plan (1) Bilious vomiting with nausea: (2) SBO (small bowel obstruction): This is an 80 yr old F who has a significant PMH of multiple sclerosis, Depression, osteoporosis, Dementia, neurogenic bladder occasional straight cath required who presents to ED 2/2 to N/V and weakness x 3 days. In ED pt remained hemodynamically stable. Imaging revealed moderate grade small bowel obstruction with transition point within the right mid abdomen. Nonspecific mild wall thickening at site of obstruction with small bowel feces sign. General surgery was consulted and NG tube was placed. She was hypokalemic with K of 3.0 and lipase elevated at 408. KUB revealed persistent SBO N/V has resolved but still with abdominal pain continue NPO status, NG with Int suction appreciate surgical input continue NPO repeat kub in a.m. IVF 75cc/hr + 20meq kcl monitor output prn antiemetics and analgesia pt takes tylenol #3 on daily basis and has for ~ 40 years, confirmed with PDMP try to limit narcotic given SBO follow labs (3) Electrolyte abnormality: hyponatremia and hypokalemia hyponatremia resolved 138 today, K 3.4 give Krider 10meq kcl x 1; continue KCL in IVF monitor K level (4) Abnormal urinalysis: UA with + nitrates, leukocyte esterase, WBC, plus for bacteria but also numerous epithelial May be contaminated specimen. Patient denies symptoms although does have mild history of dementia. No fever or leukocytosis Treat empirically with 1 g Rocephin daily until culture returns Rocephin Day #1 (5) Multiple sclerosis: no acute flare, slowly progressive MS mostly with gait disturbance ataxia to the R with some cognitive impairment follows [facility] (6) Dysthymic disorder: continue prozac when able to tolerate po (7) Osteoporosis: on calcium + vit D supplement as outpt (8) Neurogenic bladder: occassionally self caths prn monitor straight cath prn order placed (9) DVT prophylaxis: SQ heparin Q12h Disposition: admit to [facility] tele Follow up: PCP Dr. Lewis upon discharge Pt was seen and examined in collaboration with Dr. Burns, please see addendum Admission and Anticipated Discharge Date Admission Date: April 29, 2020 Supervising Physician Co-Signing Physician Notes Attending addendum The patient was seen and examined in medical floor She complains to have less upper abdominal distention and/or pain Denies any nausea and or vomiting Denies any fever and/or chills On examination No apparent distress at rest Hemodynamically stable Chestclear to auscultate bilaterally Abdomensoft, mildly tender, no guarding and rigidity and bowel sounds hypoactive Extremitiesnegative for any edema Admission labs and imaging studies reviewed She was admitted with small bowel obstruction and undergoing small bowel follow- through study today Appreciate surgery input and recommendation We will continue conservative management for now Acute assessment and plan as outlined above by MAIA Graham Dr Subjective Patient seen and examined in room 284-1 with RESOURCE MANAGER at bedside. Pt was pulling at NG tube; therefore required 1:1. Follow-up small bowel obstruction hospital day #1. Patient is lying in bed and overall feels improved this morning. Her nausea has resolved and she has not had any further episodes of emesis. She continues to have right-sided abdominal pain that is worse with movement. She denies passing any flatus or belching. She further denies fever, chills, sweats, chest pain, shortness of breath, palpitations, cough, dysuria, increased urgency or frequency with urination, hematuria. She is requesting tania veto. Also complains of soreness in throat secondary to tube. Review of Systems Review of Systems: All systems reviewed & are unremarkable except as noted in HPI & below Physical Exam Physical Exam: Gen: Thin, petite, elderly, female, NAD, A&O x3 HEENT: Normocephalic, atraumatic, conjunctivae moist, sclerae anicteric, mucous membranes moist. NG tube in place with bilious drainage Lung: Clear to Auscultation bilaterally, no wheezes/rales/rhonchi Heart: Regular rate, regular rhythm, no murmurs, rubs, or gallops Abdomen: Soft, tender to palpation RLQ/RUQ, +rebound, no guarding or rigidity, ND +BS x 4 Extremities: No edema Skin: Warm, no rash, negative turgor. Results & Data Results & Data ([facility]) Vital Signs (Past 12 Hours) Vital Signs Temp Pulse Pulse Resp BP Pulse Ox 04/30/20 07:46 82 04/30/20 07:25 37.0 C 83 18 138/71 93 04/30/20 03:27 37.2 C 80 18 144/65 H 96 04/29/20 23:27 36.5 C 77 18 150/67 H 92 04/29/20 22:20 77 Laboratory Results Short CBC 04/30/20 Range/Units 06:45 WBC 9.53 (4.8-10.8) K/uL Hgb 13.0 (12.0-16.0) g/dL Hct 39.3 (37-47) % Plt Count 381 (130-400) K/uL BMP 04/30/20 06:45 Sodium 138 Potassium 3.4 L Chloride 105 Carbon Dioxide 26 BUN 17 Creatinine 0.77 Glucose 81 Calcium 8.4 L Cardiac Enzymes 04/29/20 Range/Units 09:05 Troponin I < 0.015 (0-0.045) ng/ml Liver Function 04/30/20 Range/Units 06:45 Total Bilirubin 0.4 (0.2-1) mg/dl AST 24 (15-37) U/L ALT 27 (12-78) U/L Alkaline Phosphatase 67 (45-117) U/L Albumin 2.9 L (3.4-5.0) gm/dl Urine 04/30/20 Range/Units 00:55 Urine Color Yellow Urine Appearance Cloudy A (Clear) Urine pH 6.5 (4.5-7.5) Ur Specific [place] 1.038 H (1.000-1.030) Urine Protein Negative (Negative) Urine Glucose (UA) Negative (Negative) Diagnostic Findings KUB: IMPRESSION: Several loops of mildly dilated small bowel which suggest a persistent small bowel obstruction. Medications Administered Heparin Sodium (Porcine) (Heparin Sodium (Porcine)) 5,000 units SQ Q12 [facility] Stop: 05/29/20 20:59 Last Admin: 04/30/20 09:03 Dose: 5,000 units Documented by: [id number] Cosigned by: [id number] Admin: 04/29/20 20:15 Dose: 5,000 units Documented by: [id number] Cosigned by: [id number] Potassium Chloride/Sodium Chloride (Normal Saline W/20 Meq Kcl) 20 meq in 1,000 mls @ 75 mls/hr IV .[id number] [facility] Stop: 05/29/20 13:42 Last Admin: 04/30/20 09:00 Dose: 75 mls/hr Documented by: [id number] Infusion: 04/30/20 08:29 Dose: 75 mls/hr Documented by: [id number] Admin: 04/30/20 05:47 Dose: Not Given Documented by: [id number] Admin: 04/29/20 19:09 Dose: 75 mls/hr Documented by: [id number] Famotidine 20 mg/ Syringe 5 mls @ 2.5 mls/min IV DAILY EDGAR Stop: 05/29/20 13:56 Last Admin: 04/30/20 09:09 Dose: 2.5 mls/min Documented by: [id number] Admin: 04/29/20 14:36 Dose: 2.5 mls/min Documented by: [id number] Ceftriaxone Sodium 1,000 mg/ (Dextrose) 50 mls @ 100 mls/hr IV DAILY EDGAR; Protocol Stop: 05/05/20 09:29 Last Admin: 04/30/20 09:58 Dose: 100 mls/hr Documented by: [id number] Phenol (Chloraseptic 1.4% [place]) 1 sprays MT Q1H PRN PRN Reason: Sore Throat Stop: 05/29/20 15:49 Last Admin: 04/30/20 09:02 Dose: 1 sprays Documented by: [id number] Discontinued Medications Potassium Chloride (K Dayron / Wtr) 10 meq in 100 mls @ 100 mls/hr IV Q1H [facility] Stop: 04/29/20 17:59 Last Infusion: 04/29/20 19:11 Dose: 0 mls/hr Documented by: [id number] Admin: 04/29/20 17:50 Dose: 100 mls/hr Documented by: [id number] Infusion: 04/29/20 17:42 Dose: 100 mls/hr Documented by: [id number] Admin: 04/29/20 16:42 Dose: 100 mls/hr Documented by: [id number] Infusion: 04/29/20 16:32 Dose: 100 mls/hr Documented by: [id number] Admin: 04/29/20 15:32 Dose: 100 mls/hr Documented by: [id number] Infusion: 04/29/20 15:32 Dose: 100 mls/hr Documented by: [id number] Admin: 04/29/20 14:37 Dose: 100 mls/hr Documented by: [id number] Ioversol (Optiray 320 100ml) 93 ml IV ONCE PRN PRN Reason: Interaction Checking Stop: 05/03/20 11:15 Last Admin: 04/29/20 11:16 Dose: 93 ml Documented by: [id number] ECG Rate (beats per minute): 81 Rhythm: normal sinus Additional Comments: QTC improved to 450ms
[2020-04-30] MEDS: FAMOTIDINE 20 MG in SYRINGE 3 ML IV SCH (09:09)
[2020-04-30] MEDS ORDERED: POTASSIUM CHLORIDE / WTR 10 MEQ/100 ML PLCT IV ONE (09:30)
[2020-04-30] MEDS: cefTRIAXone SODIUM 1,000 MG in DEXTROSE 5% 50 ML IV SCH (09:58)
--- NOTE | 2020-04-30 10:19 | Surgery Progress Note ---
Date of Service April 30, 2020 Assessment & Plan (1) SBO (small bowel obstruction): 80 year-old female presented to emergency department with two day history of bilious projectile vomiting and weakness. CT scan showing evidence of moderate SBO in mid abdomen with transition point and small bowel wall thickening with small bowel feces sign. NGT placed given persistent vomiting. No leukocytosis. Afebrile. Abdomen soft nondistended. 04/30/2020: NGT was replaced last evening after patient pulled, 400 cc of dark brown output since placement KUB this am showing several loops of dilated SB consistent with persistent SBO no return of bowel function n/v resolved, pain in RUQ, nondistended Plan: Plan for SBFT with contrast via NGT to evaluate if contrast reaches colon to determine if need for surgical intervention Conservative management recommended at this time: NPO, NGT To LIS, pain management as needed avoid narcotics if possible, IV fluids will follow along Dr. Fernandez examined patient who agrees with above. Supervising Physician Co-Signing Physician Notes I interviewed and examined this patient I agree with the above note. Clinically she feels better and her exam is benign. There is no tenderness. There is no distention. She has not however passed flatus or had a bowel movement. Upper GI small bowel follow-through shows some narrowing with a transition point however there is flow of contrast into the colon. We will discussed the results with her. We will planning to continue conservative management overnight and make further decision about surgical intervention tomorrow. 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 Physical Exam Constitutional: WD/WN, vitals as above no acute distress and not ill a ppearing Respiratory: normal respiratory effort Gastrointestinal (Abdomen): Inspection/Auscultation: abdomen normal to inspection and normal bowel sounds; abdomen not distended Percussion/Palpation: + abdomen tender (RUQ) and abdomen soft; no guarding and abdomen not rigid Skin: no rashes, warm and dry Psychiatric: Orientation: alert and oriented x 3 Results & Data Vital Signs (Past 12 Hours) Vital Signs Temp Pulse Pulse Resp BP Pulse Ox 04/30/20 07:46 82 04/30/20 07:25 37.0 C 83 18 138/71 93 04/30/20 03:27 37.2 C 80 18 144/65 H 96 04/29/20 23:27 36.5 C 77 18 150/67 H 92 04/29/20 22:20 77 Laboratory Results 04/30/20 04/30/20 04/30/20 Range/Units 06:45 06:45 00:55 WBC 9.53 (4.8-10.8) K/uL RBC 4.31 (4.2-5.4) M/uL Hgb 13.0 (12.0-16.0) g/dL Hct 39.3 (37-47) % MCV 91.2 (80-100) fL MCH 30.2 (25-34) pg MCHC 33.1 (32-36) g/dL RDW Std Deviation 44.0 (36.4-46.3) fL RDW Coeff of Swetha 13.2 (11.5-14.5) % Plt Count 381 (130-400) K/uL MPV 9.4 (7.4-10.4) fL Immature Gran % (Auto) 0.2 % Neut % (Auto) 78.6 % Lymph % (Auto) 13.9 % [place] % (Auto) 7.1 % Eos % (Auto) 0.1 % Baso % (Auto) 0.1 % Immature Gran # (Auto) 0.02 (0.00-0.02) K/uL Neut # (Auto) 7.49 H (1.4-6.5) K/uL Lymph # (Auto) 1.32 (1.2-3.4) K/uL [place] # (Auto) 0.68 H (0.11-0.59) K/uL Eos # (Auto) 0.01 (0-0.5) K/uL Baso # (Auto) 0.01 (0-0.2) K/uL Sodium 138 (136-145) mmol/L Potassium 3.4 L (3.5-5.1) mmol/L Chloride 105 (98-107) mmol/L Carbon Dioxide 26 (21-32) mmol/L Anion Gap 7.0 (3-11) BUN 17 (7-18) mg/dl Creatinine 0.77 (0.6-1.2) mg/dl Est Cr Clr Drug Dosing 41.9 ml/min Est GFR ( Amer) 84.5 Est GFR (Non-Af Amer) 72.9 BUN/Creatinine Ratio 21.7 H (10-20) Glucose 81 (70-99) mg/dl Calcium 8.4 L (8.5-10.1) mg/dl Magnesium 2.2 (1.8-2.4) mg/dl Total Bilirubin 0.4 (0.2-1) mg/dl AST 24 (15-37) U/L ALT 27 (12-78) U/L Alkaline Phosphatase 67 (45-117) U/L Troponin I (0-0.045) ng/ml Total Protein 6.5 (6.4-8.2) gm/dl Albumin 2.9 L (3.4-5.0) gm/dl Globulin 3.6 (2.5-4.0) gm/dl Albumin/Globulin Ratio 0.8 L (0.9-2) Urine Color Yellow Urine Appearance Cloudy A (Clear) Urine pH 6.5 (4.5-7.5) Ur Specific [place] 1.038 H (1.000-1.030) Urine Protein Negative (Negative) Urine Glucose (UA) Negative (Negative) Urine Ketones 1+ H (Negative) Urine Blood Negative (Negative) Urine Nitrite Positive A (Negative) Urine Bilirubin Negative (Negative) Urine Urobilinogen Negative (Negative) Ur Leukocyte Esterase 2+ H (Negative) Urine WBC (Auto) 5-10 H (0-5) /hpf Urine RBC (Auto) 0-4 (0-4) /hpf U Hyaline Cast (Auto) 1-5 (0-5) /lpf U Epithel Cells (Auto) >30 H (0-5) /lpf Urine Bacteria (Auto) 4+ H (Negative) Urine Yeast Not Reportable 04/29/20 Range/Units 09:05 WBC (4.8-10.8) K/uL RBC (4.2-5.4) M/uL Hgb (12.0-16.0) g/dL Hct (37-47) % MCV (80-100) fL MCH (25-34) pg MCHC (32-36) g/dL RDW Std Deviation (36.4-46.3) fL RDW Coeff of Swetha (11.5-14.5) % Plt Count (130-400) K/uL MPV (7.4-10.4) fL Immature Gran % (Auto) % Neut % (Auto) % Lymph % (Auto) % [place] % (Auto) % Eos % (Auto) % Baso % (Auto) % Immature Gran # (Auto) (0.00-0.02) K/uL Neut # (Auto) (1.4-6.5) K/uL Lymph # (Auto) (1.2-3.4) K/uL [place] # (Auto) (0.11-0.59) K/uL Eos # (Auto) (0-0.5) K/uL Baso # (Auto) (0-0.2) K/uL Sodium (136-145) mmol/L Potassium (3.5-5.1) mmol/L Chloride (98-107) mmol/L Carbon Dioxide (21-32) mmol/L Anion Gap (3-11) BUN (7-18) mg/dl Creatinine (0.6-1.2) mg/dl Est Cr Clr Drug Dosing ml/min Est GFR ( Amer) Est GFR (Non-Af Amer) BUN/Creatinine Ratio (10-20) Glucose (70-99) mg/dl Calcium (8.5-10.1) mg/dl Magnesium (1.8-2.4) mg/dl Total Bilirubin (0.2-1) mg/dl AST (15-37) U/L ALT (12-78) U/L Alkaline Phosphatase (45-117) U/L Troponin I < 0.015 (0-0.045) ng/ml Total Protein (6.4-8.2) gm/dl Albumin (3.4-5.0) gm/dl Globulin (2.5-4.0) gm/dl Albumin/Globulin Ratio (0.9-2) Urine Color Urine Appearance (Clear) Urine pH (4.5-7.5) Ur Specific [place] (1.000-1.030) Urine Protein (Negative) Urine Glucose (UA) (Negative) Urine Ketones (Negative) Urine Blood (Negative) Urine Nitrite (Negative) Urine Bilirubin (Negative) Urine Urobilinogen (Negative) Ur Leukocyte Esterase (Negative) Urine WBC (Auto) (0-5) /hpf Urine RBC (Auto) (0-4) /hpf U Hyaline Cast (Auto) (0-5) /lpf U Epithel Cells (Auto) (0-5) /lpf Urine Bacteria (Auto) (Negative) Urine Yeast Diagnostic Findings KUB CLINICAL HISTORY: Small bowel obstruction. COMPARISON STUDY: CT of the abdomen and pelvis and KUB April 29, 2020. FINDINGS: Tip of nasogastric tube projects over the distal stomach. There is contrast within the bladder from recent contrast-enhanced CT. Several loops of mildly dilated small bowel are noted. The findings suggest a persistent small bowel obstruction IMPRESSION: Several loops of mildly dilated small bowel which suggest a persistent small bowel obstruction.
--- NOTE | 2020-04-30 14:12 | Fluoroscopy Report ---
[place] small bowel follow through CLINICAL HISTORY: SBO, eval if contrast reach colon contrast via NGT COMPARISON STUDY: CT of the abdomen and pelvis April 29, 2020. KUB April 30, 2020. FLUOROSCOPY TIME: 0 seconds. FLUOROSCOPIC IMAGES: None. TECHNIQUE: Small bowel follow-through was performed. Optiray 300 diluted with water was instilled thr ough the patient's indwelling nasogastric tube. Follow up KUBs were then obtained. 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 Cholecystectomy clips are noted. Multiple loops of mildly dilated small bowel are noted. The duodenum and proximal jejunum were mildly dilated. Transition point within the right m id abdomen is noted, as shown on CT of April 29, 2020. There is suspected stool within the small bowel proximal to the transition point which suggests a small bowel feces sign. The more distal small bowel is decompressed. Contrast reached the colon. Therefore, the findings suggest a partial small bowel o bstruction. The etiology for the obstruction is not clear on this exam. IMPRESSION: Findings consistent with a partial small bowel obstruction with transition point within the mid jejunum within the right mid abdomen, as shown on prior CT. Decompressed more distal small b owel. Contrast reached the colon. The etiology for the small bowel obstruction is not clear. ACT 112: Negative or not required by law. Electronically signed by: Sunil Call M.D. 04/30/2020 2:10 PM
[2020-04-30] MEDS ORDERED: HALOPERIDOL LACTATE 5 MG/ML 1 ML VIAL IM STA ×2 (15:31→21:52)
[2020-05-01] MEDS ORDERED: HALOPERIDOL LACTATE 5 MG/ML 1 ML VIAL IM STA ×3 (01:12→16:27)
--- NOTE | 2020-05-01 05:48 | Electrocardiogram Report ---
Test Reason : Blood Pressure : / mmHG Vent. Rate : 081 BPM Atrial Rate : 081 BPM P-R Int : 162 ms QRS Dur : 076 ms QT Int : 388 ms P-R-T Axes : 071 -52 048 degrees QTc Int : 450 ms Normal sinus rhythm Left anterior fascicular block Abnormal ECG When compared with ECG of 29-APR-2020 10:44, No significant change was found Confirmed by Jakub Mast ([id number]) on 05/01/2020 5:48:08 AM Referred By: REFERRED SELF Confirmed By:Jakub Mast
[2020-05-01 06:07] LABS: Basophils # (auto) 0.01 K/uL (0-0.2); Basophils % (auto) 0.1 %; Eosinophils # (auto) 0.01 K/uL (0-0.5); Eosinophils % (auto) 0.1 %; Hematocrit (blood only) 37.5 % (37-47); Hemoglobin 12.3 g/dL (12.0-16.0); Immature Granulocytes # (auto) 0.02 K/uL (0.00-0.02); Immature Granulocytes % (auto) 0.2 %; Lymphocytes # (auto) 1.06 K/uL (1.2-3.4); Lymphocytes % (auto) 11.9 %; Mean Corpuscular Hemoglobin 30.1 pg (25-34); Mean Corpuscular Hgb Conc 32.8 g/dL (32-36); Mean Corpuscular Volume 91.7 fL (80-100); Mean Platelet Volume 9.2 fL (7.4-10.4); Monocytes # (auto) 0.49 K/uL (0.11-0.59); Monocytes % (auto) 5.5 %; Neutrophils % (auto) 82.2 %; Platelet Count 355 K/uL (130-400); RDW Coefficient of Variation 13.2 % (11.5-14.5); RDW Standard Deviation 44.1 fL (36.4-46.3); Red Blood Count 4.09 M/uL (4.2-5.4); White Blood Count 8.89 K/uL (4.8-10.8)
[2020-05-01 06:47] LABS: BUN Creatinine Ratio 30.9 (10-20); Calcium 8.3 mg/dl (8.5-10.1); Creatinine Clr Calc Pharmacy 52.8 ml/min; Est GFR (African American) 99.2; Est GFR (Non-African American) 85.6; Magnesium 2.3 mg/dl (1.8-2.4)
--- NOTE | 2020-05-01 07:16 | XRay Report ---
KUB HISTORY: Follow up study in a patient with reported small bowel obstruction SBO COMPARISON: KUB 04/30/2020 at 10:24 PM, small bowel follow-through 04/30/2020 at 10:38 AM FINDINGS: Enteric tube is noted with distal tip terminating in the expected location of the mid to di stal stomach. Cholecystectomy. Persistent dilated loops of air-filled small bowel throughout the abdo men and pelvis are noted measuring up to 3.3 cm transversely. There is progression of contrast into t he large bowel. Colonic diverticulosis. No pneumatosis or pneumoperitoneum. No definite urolith. Disc ectomy changes of the lumbar spine. Multilevel degenerative changes of the spine without acute fractu re identified. IMPRESSION: Progression of enteric contrast into the large bowel with persistent small bowel dilation suggestive of partial small bowel obstruction. ACT 112: Negative or not required by law. The above report was generated using voice recognition software. It may contain grammatical, syntax o r spelling errors. Electronically signed by: Naman Pineda M.D. 05/01/2020 7:15 AM
--- NOTE | 2020-05-01 07:29 | XRay Report ---
KUB HISTORY: ng tube placement COMPARISON: Small bowel follow-through 04/30/2020. FINDINGS: Nasogastric tube terminates in the body of the stomach. There is contrast within the colon. There are few mildly dilated loops of small bowel consistent the patient's known partial small bowel obstruction. Prior cholecystectomy. Lumbar spinal fusion hardware is again noted. No renal calculi. No ureteral calculi. No pneumoperitoneum or pneumatosis. IMPRESSION: 1. Nasogastric tube terminates in the body of the stomach. 2. A few mildly dilated fluid-filled loops of small bowel consistent with the patient's known partial small bowel obstruction. ACT 112: Negative or not required by law. Electronically signed by: Dominguez Floyd M.D. 05/01/2020 7:28 AM
[2020-05-01] MEDS: CHLORASEPTIC 1.4% SOLN 180 ML BTL MT PRN (09:04)
[2020-05-01] MEDS: cefTRIAXone SODIUM 1,000 MG in DEXTROSE 5% 50 ML IV SCH (09:05)
--- NOTE | 2020-05-01 09:42 | Hospitalist Progress Note ---
Date of Service May 01, 2020 Assessment & Plan (1) Bilious vomiting with nausea: (2) SBO (small bowel obstruction): This is an 80 yr old F who has a significant PMH of multiple sclerosis, Depression, osteoporosis, Dementia, neurogenic bladder occasional straight cath required who presents to ED 2/2 to N/V and weakness x 3 days. Pt has removed NG x 2 due to delirium, successfully replaced last evening Continue NGT with IST N/V resolved, mild abdominal pain, increased bowel sounds today continue NPO appreciate surgical input IVF 75cc/hr + 20meq kcl monitor output prn antiemetics and analgesia pt takes tylenol #3 on daily basis and has for ~ 40 years, confirmed with PDMP has not required narcotic since admission follow labs PT/OT consulted (3) Electrolyte abnormality: hyponatremia and hypokalemia resolved, continue to monitor electroytes given GI loss with NGT (4) Abnormal urinalysis: UA with + nitrates, leukocyte esterase, WBC, plus for bacteria but also numerous epithelial May be contaminated specimen. Patient denies symptoms although does have mild history of dementia. No fever or leukocytosis Treat empirically with 1 g Rocephin daily until culture returns culture still pending as of 05/01 @ 0938 Rocephin Day #2 (5) Delirium: pt with intermittent confusion and delirum in evening pt has known MS with cognitive dysfunction and dementia does not appear to be infectious source as she is afebrile, WBC WNL. She is on antibiotic for possible UTI She has not been given any narcotics. Vitals and labs are stable Suspect delirium in setting of hospitalization and acute illness Received IM haldol total of 5 mg ( 3 total doses yesterday ) and pulled NGT out twice will need frequent re orienting (6) Multiple sclerosis: no acute flare, slowly progressive MS mostly with gait disturbance ataxia to the R with some cognitive impairment follows [place] [facility] (7) Dysthymic disorder: continue prozac when able to tolerate po (8) Osteoporosis: on calcium + vit D supplement as outpt (9) Neurogenic bladder: occassionally self caths prn monitor straight cath prn order placed (10) DVT prophylaxis: SQ heparin Q12h Disposition: admit to [facility] tele Follow up: PCP Dr. Lewis upon discharge Pt was seen and examined in collaboration with Dr. Burns, please see addendum Discussed case with Ed who agrees with above assessment and treatment plan. Admission and Anticipated Discharge Date Admission Date: April 29, 2020 Supervising Physician Co-Signing Physician Notes Attending addendum The patient was seen and examined in medical floor She complains to have minimal abdominal distention without any pain Her x-rays and imaging studies showed continued small bowel obstruction She will be going for exploratory laparotomy sometime today as per general surgery She is aware about the procedure On examination Sitting on a chair without any acute distress Hemodynamically stable with blood pressure on the upper side of normal at 150/70 Chest-minimal crackles at the bases otherwise clear Heart-S1-S2, regular Abdomen-mildly distended, and mildly tender, soft, bowel sounds sluggish Extremities-negative for any edema Assessment and plan Has SBO without any improvement with conservative management We will go for exploratory laparotomy sometime today as per surgery Agree with assessment and plan as outlined above by MAIA Graham Dr Subjective Patient seen and examined in room 284-1 with nurse at bedside. Pt requiring one-to-one. Follow-up small bowel obstruction hospital day #2. Patient is lying in bed this morning somnolent. She is arousable to verbal stimulation. She is alert to self and understand she is in the hospital but otherwise delirious. Last evening she became increasingly confused and combative. She received 5 total milligrams of Haldol, last dose at 1:34 AM. She currently denies any abdominal pain, nausea. She did pull out NG tube last evening which was successfully replaced. She continues to have adequate amount of drainage. She denies any fever, chills, sweats, chest pain, shortness breath, cough, abdominal pain, flatus. Nurse at bedside states there is a incontinent BM documented x1 yesterday; however unsure if accurate. ROS unreliable given underlying confusion. Review of Systems Review of Systems: All systems reviewed & are unremarkable except as noted in HPI & below and Unobtainable due to cognitive status Physical Exam Physical Exam: Gen: Thin, petite, elderly female, somnolent but arouses to verbal stimulation, alert to self only. HEENT: Normocephalic, atraumatic, conjunctivae moist, sclerae anicteric, mucous membranes moist. NG tube in place. Lung: Clear to Auscultation bilaterally, no wheezes/rales/rhonchi Heart: Regular rate, regular rhythm, no murmurs, rubs, or gallops Abdomen: Soft, mildly tender in right upper and right lower quadrant, no rebound, no guarding, no rigidity, +BS x 4 Extremities: No edema Skin: Warm, no rash, negative turgor. Results & Data Results & Data ([facility]) Vital Signs (Past 12 Hours) Vital Signs Temp Pulse Resp BP Pulse Ox 05/01/20 07:00 36.5 C 77 120/55 L 95 04/30/20 23:50 36.5 C 89 18 140/66 97 Laboratory Results Short CBC 05/01/20 Range/Units 05:29 WBC 8.89 (4.8-10.8) K/uL Hgb 12.3 (12.0-16.0) g/dL Hct 37.5 (37-47) % Plt Count 355 (130-400) K/uL BMP 05/01/20 05:29 Sodium 141 Potassium 4.0 D Chloride 112 H Carbon Dioxide 20 L BUN 19 H Creatinine 0.61 Glucose 68 L Calcium 8.3 L Diagnostic Findings KUB: IMPRESSION: Progression of enteric contrast into the large bowel with persistent small bowel dilation suggestive of partial small bowel obstruction. SBFT: IMPRESSION: Findings consistent with a partial small bowel obstruction with transition point within the mid jejunum within the right mid abdomen, as shown on prior CT. Decompressed more distal small bowel. Contrast reached the colon. The etiology for the small bowel obstruction is not clear. Medications Administered Heparin Sodium (Porcine) (Heparin Sodium (Porcine)) 5,000 units SQ Q12 EDGAR Stop: 05/29/20 20:59 Last Admin: 04/30/20 20:59 Dose: 5,000 units Documented by: [id number] Cosigned by: [id number] Admin: 04/30/20 09:03 Dose: 5,000 units Documented by: [id number] Cosigned by: [id number] Admin: 04/29/20 20:15 Dose: 5,000 units Documented by: [id number] Cosigned by: [id number] Potassium Chloride/Sodium Chloride (Normal Saline W/20 Meq Kcl) 20 meq in 1,000 mls @ 75 mls/hr IV .[id number] EDGAR Stop: 05/29/20 13:42 Last Admin: 04/30/20 22:37 Dose: 75 mls/hr Documented by: [id number] Infusion: 04/30/20 22:37 Dose: 75 mls/hr Documented by: [id number] Infusion: 04/30/20 11:06 Dose: 75 mls/hr Documented by: [id number] Infusion: 04/30/20 10:47 Dose: 0 mls/hr Documented by: [id number] Admin: 04/30/20 09:00 Dose: 75 mls/hr Documented by: [id number] Infusion: 04/30/20 08:29 Dose: 75 mls/hr Documented by: [id number] Admin: 04/30/20 05:47 Dose: Not Given Documented by: [id number] Admin: 04/29/20 19:09 Dose: 75 mls/hr Documented by: [id number] Famotidine 20 mg/ Syringe 5 mls @ 2.5 mls/min IV DAILY EDGAR Stop: 05/29/20 13:56 Last Admin: 04/30/20 09:09 Dose: 2.5 mls/min Documented by: [id number] Admin: 04/29/20 14:36 Dose: 2.5 mls/min Documented by: [id number] Ceftriaxone Sodium 1,000 mg/ (Dextrose) 50 mls @ 100 mls/hr IV DAILY EDGAR; Protocol Stop: 05/05/20 09:29 Last Admin: 05/01/20 09:05 Dose: 100 mls/hr Documented by: [id number] Infusion: 04/30/20 10:31 Dose: 0 mls/hr Documented by: [id number] Admin: 04/30/20 09:58 Dose: 100 mls/hr Documented by: [id number] Phenol (Chloraseptic 1.4% Rogers) 1 sprays MT Q1H PRN PRN Reason: Sore Throat Stop: 05/29/20 15:49 Last Admin: 05/01/20 09:04 Dose: 1 sprays Documented by: [id number] Admin: 04/30/20 13:51 Dose: 1 sprays Documented by: [id number] Admin: 04/30/20 09:02 Dose: 1 sprays Documented by: [id number] Discontinued Medications Haloperidol Lactate (Haldol) 2.5 mg IM NOW STA Stop: 04/30/20 15:32 Last Admin: 04/30/20 15:36 Dose: 2.5 mg Documented by: [id number] Haloperidol Lactate (Haldol) 1 mg IM NOW STA Stop: 04/30/20 21:53 Last Admin: 04/30/20 22:02 Dose: 1 mg Documented by: [id number] Haloperidol Lactate (Haldol) 1 mg IM NOW STA Stop: 05/01/20 01:13 Last Admin: 05/01/20 01:34 Dose: 1 mg Documented by: [id number] Haloperidol Lactate (Haldol) 0.5 mg IM NOW STA Stop: 05/01/20 04:11 Last Admin: 05/01/20 06:48 Dose: Not Given Documented by: [id number] Potassium Chloride (K Dayron / Wtr) 10 meq in 100 mls @ 100 mls/hr IV Q1H EDGAR Stop: 04/29/20 17:59 Last Infusion: 04/29/20 19:11 Dose: 0 mls/hr Documented by: [id number] Admin: 04/29/20 17:50 Dose: 100 mls/hr Documented by: [id number] Infusion: 04/29/20 17:42 Dose: 100 mls/hr Documented by: [id number] Admin: 04/29/20 16:42 Dose: 100 mls/hr Documented by: [id number] Infusion: 04/29/20 16:32 Dose: 100 mls/hr Documented by: [id number] Admin: 04/29/20 15:32 Dose: 100 mls/hr Documented by: [id number] Infusion: 04/29/20 15:32 Dose: 100 mls/hr Documented by: [id number] Admin: 04/29/20 14:37 Dose: 100 mls/hr Documented by: [id number] Potassium Chloride (K Dayron / Wtr) 10 meq in 100 mls @ 100 mls/hr IV ONE ONE Stop: 04/30/20 10:29 Last Infusion: 04/30/20 12:07 Dose: 0 mls/hr Documented by: [id number] Admin: 04/30/20 11:05 Dose: 100 mls/hr Documented by: [id number] Ioversol (Optiray 320 100ml) 93 ml IV ONCE PRN PRN Reason: Interaction Checking Stop: 05/03/20 11:15 Last Admin: 04/29/20 11:16 Dose: 93 ml Documented by: [id number]
[2020-05-01] MEDS: FAMOTIDINE 20 MG in SYRINGE 3 ML IV SCH (09:51)
[2020-05-01] MEDS: HEPARIN SOD 5,000 UNIT/0.5 ML VIAL SQ SCH ×2 (09:53→21:06)
--- NOTE | 2020-05-01 09:54 | Surgery Progress Note ---
Date of Service May 01, 2020 Assessment & Plan (1) SBO (small bowel obstruction): 80 year-old female presented to emergency department with two day history of bilious projectile vomiting and weakness. CT scan showing evidence of moderate SBO in mid abdomen with transition point and small bowel wall thickening with small bowel feces sign. 04/30/2020: NGT was replaced last evening after patient pulled, 400 cc of dark brown output since placement KUB this am showing several loops of dilated SB consistent with persistent SBO no return of bowel function n/v resolved, pain in RUQ, nondistended 05/01/2020 SBFT showing persistent SBO mid jejunum, unknown etiology of obstruction however contrast reached colon. KUB am showing persistent SB dilatation , contrast reaches colon no return of bowel function Plan: Imaging shows partial obstruction however there has been no return of bowel fu nction in the last 2 days since admission. Discussed options of continued conservative management for surgical exploration and possible bowel resection or lysis of adhesions. Patient wanted to discuss surgery option with . She elected to proceed with surgery. Informed consent obtained keep NPO DR. Fernandez has seen patient, please see addendum for further recommendations. Supervising Physician Co-Signing Physician Notes I interviewed and examined this patient I agree with the above note. The upper GI small bowel follow-through showed flow into the colon however there is still dilated proximal small bowel with a significant partial obstruction. I discussed with the patient the options of taking the NG tube out to see if she would tolerate that versus surgical intervention. She has not passed her bowels or had flatus. We have chosen surgery. I explained to her the operation and the possible complications. She has signed a consent form after answer questions. Subjective feeling okay no flatus or bowel movement not complaining of pain this morning NGT still intact Physical Exam Constitutional: WD/WN, vitals as above no acute distress Respiratory: normal respiratory effort Gastrointestinal (Abdomen): Inspection/Auscultation: abdomen normal to inspection; abdomen not distended NGT with brown/bilious output Skin: no rashes, warm and dry Psychiatric: Orientation: alert and oriented x 3 Results & Data Vital Signs (Past 12 Hours) Vital Signs Temp Pulse Resp BP Pulse Ox 05/01/20 07:00 36.5 C 77 120/55 L 95 04/30/20 23:50 36.5 C 89 18 140/66 97 Laboratory Results 05/01/20 05/01/20 05/01/20 Range/Units 09:49 05:29 05:29 WBC 8.89 (4.8-10.8) K/uL RBC 4.09 L (4.2-5.4) M/uL Hgb 12.3 (12.0-16.0) g/dL Hct 37.5 (37-47) % MCV 91.7 (80-100) fL MCH 30.1 (25-34) pg MCHC 32.8 (32-36) g/dL RDW Std Deviation 44.1 (36.4-46.3) fL RDW Coeff of Swetha 13.2 (11.5-14.5) % Plt Count 355 (130-400) K/uL MPV 9.2 (7.4-10.4) fL Immature Gran % (Auto) 0.2 % Neut % (Auto) 82.2 % Lymph % (Auto) 11.9 % Band[place] % (Auto) 5.5 % Eos % (Auto) 0.1 % Baso % (Auto) 0.1 % Immature Gran # (Auto) 0.02 (0.00-0.02) K/uL Neut # (Auto) 7.30 H (1.4-6.5) K/uL Lymph # (Auto) 1.06 L (1.2-3.4) K/uL Band[place] # (Auto) 0.49 (0.11-0.59) K/uL Eos # (Auto) 0.01 (0-0.5) K/uL Baso # (Auto) 0.01 (0-0.2) K/uL Sodium 141 (136-145) mmol/L Potassium 4.0 D (3.5-5.1) mmol/L Chloride 112 H (98-107) mmol/L Carbon Dioxide 20 L (21-32) mmol/L Anion Gap 9.0 (3-11) BUN 19 H (7-18) mg/dl Creatinine 0.61 (0.6-1.2) mg/dl Est Cr Clr Drug Dosing 52.8 ml/min Est GFR ( Amer) 99.2 Est GFR (Non-Af Amer) 85.6 BUN/Creatinine Ratio 30.9 H (10-20) Glucose 68 L (70-99) mg/dl POC Glucose 97 (70-99) mg/dl Calcium 8.3 L (8.5-10.1) mg/dl Magnesium 2.3 (1.8-2.4) mg/dl Diagnostic Findings FL small bowel follow through CLINICAL HISTORY: SBO, eval if contrast reach colon contrast via NGT COMPARISON STUDY: CT of the abdomen and pelvis April 29, 2020. KUB April 30, 2020. FLUOROSCOPY TIME: 0 seconds. FLUOROSCOPIC IMAGES: None. TECHNIQUE: Small bowel follow-through was performed. Optiray 300 diluted with water was instilled through the patient's indwelling nasogastric tube. Follow up KUBs were then obtained. FINDINGS: A rn tele KUB was obtained prior to this exam which demonstrated tip of nasogastric tube within the distal stomach. Cholecystectomy clips are noted. Multiple loops of mildly dilated small bowel are noted. The duodenum and proximal jejunum were mildly dilated. Transition point within the right mid abdomen is noted, as shown on CT of April 29, 2020. There is suspected stool within the small bowel proximal to the transition point which suggests a small bowel feces sign. The more distal small bowel is decompressed. Contrast reached the colon. Therefore, the findings suggest a partial small bowel obstruction. The etiology for the obstruction is not clear on this exam. IMPRESSION: Findings consistent with a partial small bowel obstruction with transition point within the mid jejunum within the right mid abdomen, as shown on prior CT. Decompressed more distal small bowel. Contrast reached the colon. The etiology for the small bowel obstruction is not clear. KUB 05/01/2020 HISTORY: Follow up study in a patient with reported small bowel obstruction SBO COMPARISON: KUB 04/30/2020 at 10:24 PM, small bowel follow-through 04/30/2020 at 10:38 AM FINDINGS: Enteric tube is noted with distal tip terminating in the expected location of the mid to distal stomach. Cholecystectomy. Persistent dilated loops of air-filled small bowel throughout the abdomen and pelvis are noted measuring up to 3.3 cm transversely. There is progression of contrast into the large bowel. Colonic diverticulosis. No pneumatosis or pneumoperitoneum. No definite urolith. Discectomy changes of the lumbar spine. Multilevel degenerative changes of the spine without acute fracture identified. IMPRESSION: Progression of enteric contrast into the large bowel with persistent small bowel dilation suggestive of partial small bowel obstruction.
[2020-05-01] MEDS ORDERED: PROPOFOL IV EMULSION 10 MG/ML 20 ML VIAL IV ONE (12:30)
[2020-05-01] MEDS ORDERED: fentaNYL citrate 100 MCG/2 ML VIAL ONE ×2 (12:30→14:37)
[2020-05-01] MEDS ORDERED: ROCURONIUM BROMIDE 10 MG/ML 5 ML VIAL IV ONE (12:30)
[2020-05-01] MEDS ORDERED: LIDOCAINE HCL 2% 2 ML VIAL/AMP(20MG/ML) INFIL ONE (12:30)
--- NOTE | 2020-05-01 13:14 | Anesthesiology Consultation ---
Date of Service May 01, 2020 Assessment & Plan (1) Encounter for pre-operative examination: Chart Review Chart Review: Acceptable Risk for Surgery and Patient NOT seen in Pre Admission Testing Consults Requested none ASA ASA3 Proposed Anesthesia Anesthesia Type: General Risk / Benefits Reviewed With: PT / POA / Parent / Guardian, Accepts Plan and In formed Consent Obtained History Surgery Operation Date: 05/01/20 07:00 Proposed Procedures p Exploratory Laparotomy, Possible Bowel Resection - Nishant Fernandez MD Height/Weight Height: 5 ft Weight: 53.524 kg Allergies Allergy/AdvReac Type Severity Reaction Status Date / Time scopolamine Allergy Unknown JOINT SWELL Verified 04/29/20 09:36 Medications Home Medications Medication Instructions Recorded Confirmed Last Taken acetaminophen-codeine 1 tab PO Q4H PRN 04/29/20 04/29/20 04/24/20 aspirin 81 mg PO QAM 04/29/20 04/29/20 04/24/20 calcium carbonate-vitamin D3 1 tab PO QAM 04/29/20 04/29/20 04/24/20 [Calcium 600 + D(3)] fluoxetine 40 mg PO QAM 04/29/20 04/29/20 04/24/20 multivitamin 1 tab PO QAM 04/29/20 04/29/20 04/24/20 omeprazole magnesium [Prilosec OTC] 20 mg PO QAM 04/29/20 04/29/20 04/24/20 polyethylene glycol 3350 [Miralax] 17 g PO QAM 04/29/20 04/29/20 04/24/20 trazodone 50 mg PO HS 04/29/20 04/29/20 04/24/20 Active Medications Generic Name Dose Route Start Last Admin Trade Name Freq PRN Reason Stop Dose Admin Heparin Sodium (Porcine) 5,000 units 04/29/20 21:00 05/01/20 09:53 Heparin Sodium (Porcine) SQ 05/29/20 20:59 5,000 units Q12 EDGAR Administration Potassium Chloride/Sodium Chloride 20 meq in 1,000 mls @ 75 mls/hr 04/29/20 13:43 05/01/20 11:39 Normal Saline W/20 Meq Kcl IV 05/29/20 13:42 0 mls/hr .[id number] EDGAR Infusion Famotidine 20 mg/ Syringe 5 mls @ 2.5 mls/min 04/29/20 13:57 05/01/20 09:51 IV 05/29/20 13:56 2.5 mls/min DAILY EDGAR Administration Ceftriaxone Sodium 1,000 mg/ 50 mls @ 100 mls/hr 04/30/20 09:30 05/01/20 10:16 Dextrose IV 05/05/20 09:29 Infused DAILY EDGAR Infusion Protocol Phenol 1 sprays 04/29/20 15:50 05/01/20 09:04 Chloraseptic 1.4% [place] 05/29/20 15:49 1 sprays Q1H PRN Administration Sore Throat NPO Last Intake of Fluids Comment: per patient has been about a week Last Intake of Solids Comment: per patient has been about a week Past Medical History Medical History Dysthymic disorder (Chronic) Multiple sclerosis (Chronic) Osteoporosis (Chronic) Urinary, incontinence, stress female (Chronic) Exercise / Class Metabolic Activity II 4-5 Yardwork/Stairs/Walk up hill Past Family History Family History Father Stroke Coronary heart disease Mother CHF (congestive heart failure) Brother Metastatic melanoma Sister Lung cancer Past Surgical History Surgical History History of appendectomy (Resolved) History of back surgery (Resolved) "x5" History of section (Resolved) x 2 History of cholecystectomy (Resolved) History of tonsillectomy (Resolved) History of total hysterectomy (Resolved) Past Anesthesia History No Hx of Anesthesia Complications and No Family Hx of Anesthesia Complications History of PONV No Hx of PONV and No Hx of Motion Sickness Social History Smoking Status: Former smoker Hx Alcohol Use: Yes Alcohol type: wine alcohol intake frequency: holidays/special occasions only Hx Substance Use: No Physical Exam Vital Signs Last Vital Signs Temp 36.7 C 05/01/20 11:50 Pulse 82 05/01/20 11:50 Resp 20 05/01/20 11:50 BP 158/70 H 05/01/20 11:50 Pulse Ox 97 05/01/20 11:50 ENMT Mouth: no dentition abnormality Thyromental Distance: > or= 3.5 Finger Breadths Mallampati Class: II Mouth / Teeth: 1. MISSING NG tube in place Neck normal visual inspection Respiratory normal respiratory effort Auscultation: lungs clear to auscultation bilaterally Cardiovascular Rate/Rhythm: regular rate and regular rhythm Psychiatric Orientation: alert Testing Laboratory Results 05/01/20 05:29 05/01/20 05:29 Urine Color Yellow 04/30/20 00:55 Urine Appearance Cloudy (Clear) A 04/30/20 00:55 Urine pH 6.5 (4.5-7.5) 04/30/20 00:55 Ur Specific [place] 1.038 (1.000-1.030) H 04/30/20 00:55 Urine Protein Negative (Negative) 04/30/20 00:55 Urine Glucose (UA) Negative (Negative) 04/30/20 00:55 Urine Ketones 1+ (Negative) H 04/30/20 00:55 Urine Nitrite Positive (Negative) A 04/30/20 00:55 Ur Leukocyte Esterase 2+ (Negative) H 04/30/20 00:55 Urine WBC (Auto) 5-10 /hpf (0-5) H 04/30/20 00:55 Urine RBC (Auto) 0-4 /hpf (0-4) 04/30/20 00:55 U Hyaline Cast (Auto) 1-5 /lpf (0-5) 04/30/20 00:55 U Epithel Cells (Auto) >30 /lpf (0-5) H 04/30/20 00:55 Urine Bacteria (Auto) 4+ (Negative) H 04/30/20 00:55 04/30/20 00:55 Urine Culture - Preliminary Urine,Clean Catch Escherichia coli 05/01/20 09:49 POC Glucose 97
[2020-05-01] MEDS ORDERED: ONDANSETRON INJ 2 MG/ML 2 ML VIAL ONE (13:55)
[2020-05-01] MEDS ORDERED: SUCCINYLCHOLINE CHLORIDE 20 MG/ML 10 ML VIAL IV ONE (13:55)
[2020-05-01] MEDS ORDERED: PHENYLEPHRINE HCL 10 MG/ML VIAL ONE (13:55)
[2020-05-01] MEDS ORDERED: BUPIVACAINE 0.5 % 5 MG/1 ML MPF 30ML VIAL ONE (14:31)
--- NOTE | 2020-05-01 15:06 | Post Operative Brief Note ---
Immediate Post Op Note v1 Date of Surgery May 01, 2020 Pre & Post Diagnosis Operation Date: 05/01/20 07:00 Pre-Op Diagnosis: Partial Small Bowel Obstruction Post-Op Diagnosis: Partial Small Bowel Obstruction I identified the patient and participated in the time-out.: Yes Procedure Operation Date: 05/01/20 07:00 Actual Procedures p Exploratory Laparotomy, with Removal of Inspissated Food Products (Not Applicable) - Nishant Fernandez MD Surgeon Nishant Fernandez MD Cae Engineer Mireya Ba PA-C Estimated Blood Loss 5 Findings Consistent with Post-Op Diagnosis
[2020-05-01] MEDS ORDERED: fentaNYL citrate 100 MCG/2 ML VIAL IV PRN (15:12)
[2020-05-01] MEDS ORDERED: ATROPINE SULFATE 0.1 MG/ML 10ML SYR IV PRN (15:12)
[2020-05-01] MEDS ORDERED: ONDANSETRON INJ 2 MG/ML 2 ML VIAL IV PRN (15:12)
[2020-05-01] MEDS ORDERED: ePHEDrine sulfate 50 MG/ML AMP IV PRN (15:12)
--- NOTE | 2020-05-01 15:48 | Anesthesiology Progress Note ---
Date of Service May 01, 2020 Anesthesia Post Procedure Vital Signs Vital Signs: Temp Pulse Pulse Pulse Pulse Resp BP 05/01/20 15:40 97.5 F L 89 13 05/01/20 15:30 90 17 05/01/20 15:20 83 14 05/01/20 15:10 82 17 05/01/20 15:00 78 12 05/01/20 14:53 97.5 F L 85 13 05/01/20 11:50 98.1 F 82 20 05/01/20 10:45 97.9 F 81 141/63 H 05/01/20 08:00 76 05/01/20 07:00 97.7 F 77 04/30/20 23:50 97.7 F 89 18 04/30/20 16:00 83 BP Pulse Ox 05/01/20 15:40 156/75 H 98 05/01/20 15:30 160/89 H 100 05/01/20 15:20 142/98 H 100 05/01/20 15:10 145/80 H 100 05/01/20 15:00 174/69 H 100 05/01/20 14:53 184/102 H 100 05/01/20 11:50 158/70 H 97 05/01/20 10:45 98 05/01/20 08:00 05/01/20 07:00 120/55 L 95 04/30/20 23:50 140/66 97 04/30/20 16:00 Pain Intensity Abdomen: Pain Intensity: 0 Transfer of Care Handoff Completed per policy Notes Mental Status: alert / awake / arousable and participated in evaluation Patient Amnestic to Procedure: Yes Nausea / Vomiting: adequately controlled Pain: adequately controlled Airway Patency, RR, SpO2: stable & adequate BP & HR: stable & adequate Hydration State: stable & adequate Anesthetic Complications: no major complications apparent and Pt Satisfied with anesthetic care
[2020-05-01] MEDS: MoRPHine SULFATE 4 MG/ML 1 ML CARP\\VIAL IV PRN ×2 (17:30→20:57)
[2020-05-01] MEDS: NSS + 20MEQ KCL 20 MEQ/1,000 ML BAG IV SCH (17:33)
--- NOTE | 2020-05-01 17:45 | Operative Report (OR) ---
DATE OF OPERATION: 05/01/2020 PREOPERATIVE DIAGNOSIS: Small-bowel obstruction. POSTOPERATIVE DIAGNOSIS: Small-bowel obstruction. PROCEDURE: Exploratory laparotomy with removal of inspissated thickened food creating obstruction. SURGEON: Nishant Fernandez MD. FLOWER GROWER: Mireya Ba PA-C. FINDINGS: Upon opening the abdomen, there was very little in the way of adhesion. There were some adhesions of the omentum to the anterior abdominal wall, but those were easily taken down. She had 2 areas of jejunal diverticula without evidence of diverticulitis. The CAT scan indicated that the area of partial obstruction was in the mid jejunum. I was able to identify a thickened proximal bowel and decompressed distal bowel. I then began to eviscerate the distal bowel working proximally. There was an area of bowel where there was a clear demarcation between the proximal dilated bowel and the distal decompressed bowel. That was palpated and there was identified thickened food material within the lumen. I then chose a site on the proximal bowel and about 2 cm from the inspissated food, I performed an enterotomy longitudinally and opened it enough that I could then milk the inspissated food back to that enterotomy and remove it little bit by little bit until it was completely removed. I then irrigated the proximal and distal small bowel and removed the irrigation. The mucosa appeared normal. The enterotomy was then closed transversely with an inner layer of 3-0 chromic in a Polina fashion with overlying Lembert sutures of 3-0 silk. This was then placed back into the abdomen and the omentum was brought down over the incision. There were no other areas of obstruction identified. The fascia was closed with running #1 PDS and the skin was closed with waleska. The skin was anesthetized with 0.5% Marcaine. Estimated blood loss was 5 mL. Sponge, needle and instrument counts were correct prior to closure. The skin was cleansed, dried, and a dressing placed. The physician therapy administrative assistant was present for the whole case. She helped with the opening, retraction and closure of the enterotomy, and closure of the abdomen as well as closure of skin and placement of dressings. I attest to the content of the Intraoperative Record and any orders documented therein. Any exception s are noted below.
[2020-05-02] MEDS: NSS + 20MEQ KCL 20 MEQ/1,000 ML BAG IV SCH (03:18)
[2020-05-02 06:08] LABS: Hematocrit (blood only) 37.6 % (37-47); Hemoglobin 12.1 g/dL (12.0-16.0); Immature Granulocytes # (auto) 0.04 K/uL (0.00-0.02); Immature Granulocytes % (auto) 0.3 %; Lymphocytes # (auto) 0.85 K/uL (1.2-3.4); Lymphocytes % (auto) 5.8 %; Mean Corpuscular Hemoglobin 30.1 pg (25-34); Mean Corpuscular Hgb Conc 32.2 g/dL (32-36); Mean Corpuscular Volume 93.5 fL (80-100); Mean Platelet Volume 9.2 fL (7.4-10.4); Monocytes # (auto) 0.45 K/uL (0.11-0.59); Monocytes % (auto) 3.1 %; Neutrophils # (auto) 13.19 K/uL (1.4-6.5); Neutrophils % (auto) 90.8 %; Platelet Count 365 K/uL (130-400); RDW Coefficient of Variation 13.9 % (11.5-14.5); RDW Standard Deviation 47.5 fL (36.4-46.3); Red Blood Count 4.02 M/uL (4.2-5.4); White Blood Count 14.53 K/uL (4.8-10.8)
[2020-05-02 06:41] LABS: BUN Creatinine Ratio 20.1 (10-20); Calcium 7.8 mg/dl (8.5-10.1); Creatinine Clr Calc Pharmacy 44.8 ml/min; Est GFR (African American) 91.7; Est GFR (Non-African American) 79.1; Potassium 4.4 mmol/L (3.5-5.1)
[2020-05-02] MEDS ORDERED: bisacodyL 10 MG SUPP PR ONE (08:00)
[2020-05-02] MEDS: FAMOTIDINE 20 MG in SYRINGE 3 ML IV SCH (08:17)
[2020-05-02] MEDS: HEPARIN SOD 5,000 UNIT/0.5 ML VIAL SQ SCH (08:17)
[2020-05-02] MEDS: cefTRIAXone SODIUM 1,000 MG in DEXTROSE 5% 50 ML IV SCH (08:18)
--- NOTE | 2020-05-02 08:30 | Surgery Progress Note ---
Date of Service May 02, 2020 Assessment & Plan (1) SBO (small bowel obstruction): 80 year-old female presented to emergency department with two day history of bilious projectile vomiting and weakness. CT scan showing evidence of moderate SBO in mid abdomen with transition point and small bowel wall thickening with small bowel feces sign. POD # 1 s/p ex lap, enterotomy removal of retained food products/stool ball -vitals stable, afebrile, postop leukocytosis - adequate urine output - NGT- 150 cc last shift - no return of bowel function yet Plan: Continue NPO and NGT to LIS Dulcolax to be given this am Suggest IV tylenol instead of IV Morphine given age and dementia as needed for pain Continue Haq as she straight caths at home Continue medical management incentive spirometry scds for dvt prophylaxis pt/ot consults DR. Fernandez has seen patient and examined patient agrees with above Subjective somewhat confused this am, tired, sleeping 1:1 at bedside keeps asking if she should straight cath herself no flatus Physical Exam Constitutional: WD/WN, vitals as above no acute distress Respiratory: normal respiratory effort; no respiratory distress Gastrointestinal (Abdomen): Inspection/Auscultation: abdomen normal to inspection; abdomen not distended Percussion/Palpation: + abdomen tender (mild at incision site) and abdomen soft; no guarding and abdomen not rigid NGT with dark brown output Skin: no rashes, warm and dry + incision (midline incision covered with dry dressing) Psychiatric: Orientation: alert Results & Data Vital Signs (Past 12 Hours) Vital Signs Temp Pulse Pulse Resp BP Pulse Ox 05/02/20 07:00 36.4 C L 86 16 147/77 H 98 05/02/20 03:03 36.9 C 87 16 101/63 97 05/02/20 00:32 93 H 05/01/20 22:58 37.3 C 102 H 16 121/69 97 05/01/20 21:58 37 C 102 H 20 102/64 96 05/01/20 21:00 36.6 C 110 H 20 124/72 97
[2020-05-02] MEDS ORDERED: ACETAMINOPHEN 1000 MG/100 ML IV IV PRN (09:30)
--- NOTE | 2020-05-02 10:08 | Hospitalist Progress Note ---
Date of Service May 02, 2020 Assessment & Plan (1) SBO (small bowel obstruction): This is an 80 yr old F who has a significant PMH of multiple sclerosis, Depression, osteoporosis, Dementia, neurogenic bladder occasional straight cath required who presents to ED 2/2 to N/V and weakness x 3 days. POD #1 /p ex lap, enterotomy removal of retained food products/stool ball by Dr. Fernandez continue NGT to LIS - 150cc output last shift IV APAP for pain control, avoid narcotics given delirium continue IVF Appreciate surgery recommendations PT/OT on board (2) UTI (urinary tract infection): Culture grew > 100k E. coli and alpha strep continue ceftriaxone day #3 of 5 (3) Leukocytosis: wbc 14k currently on antibiotics for UTI likely in setting of post op state (4) Electrolyte abnormality: hyponatremia and hypokalemia resolved, continue to monitor electroytes given GI loss with NG K 4.4 (5) Abnormal urinalysis: UA with + nitrates, leukocyte esterase, WBC, plus for bacteria but also numerous epithelial May be contaminated specimen. Patient denies symptoms although does have mild history of dementia. No fever or leukocytosis Treat empirically with 1 g Rocephin daily until culture returns culture still pending as of 05/01 @ 0938 Rocephin Day #2 (6) Delirium: pt with intermittent confusion and delirum in evening pt has known MS with cognitive dysfunction and dementia does not appear to be infectious source as she is afebrile, WBC WNL. She is on antibiotic for UTI She has not been given any narcotics. Vitals and labs are stable expect delirium to worsen given use of anesthetics will need frequent re orienting (7) Multiple sclerosis: no acute flare, slowly progressive MS mostly with gait disturbance ataxia to the R with some cognitive impairment follows [facility] (8) Dysthymic disorder: continue prozac when able to tolerate po (9) Osteoporosis: on calcium + vit D supplement as outpt (10) Neurogenic bladder: occassionally self caths prn rosario cath in place (11) DVT prophylaxis: Heparin d/c 2/2 to procedure, SCDs per surgery Disposition: admitted to [facility] tele Follow up: PCP Dr. Lewis upon discharge Pt was seen and examined in collaboration with Dr. Burns, please see addendum Admission and Anticipated Discharge Date Admission Date: April 29, 2020 Supervising Physician Co-Signing Physician Notes Attending addendum Patient was seen and examined today in the medical floor He is a status post laparotomy for SBO Required more IV fluid for postoperative tachycardia likely secondary to dehydration Complains to have some pain but no other distress On examination In looking with stable hemodynamically Chest-clear Abdomen-slightly distended, soft and tender with diminished bowel sounds Labs and imaging studies noted SBO status post laparoscopic procedure as mentioned by surgical team Agree with assessment and plan as outlined above by MAIA Payan Dr Subjective Patient seen and examined in room 284-1 with nurse at bedside. Pt requiring one-to-one. Follow-up small bowel obstruction hospital day #3, Post op exp lap day #1. Patient is lying in bed, sleeping. Arouses to verbal stimulation. ROS unreliable given confusion. She denies any abdominal pain, nausea, vomiting, flatus. Rosario catheter still intact. Continues to have NG tube in place. One-to-one still at bedside. Review of Systems Review of Systems: Unobtainable due to cognitive status Physical Exam Physical Exam: Gen: Thin, petite, elderly, female, drowsy but arouses to verbal stimulation, A&O x2, NAD HEENT: Normocephalic, atraumatic, conjunctivae moist, sclerae anicteric, mucous membranes dry. Lung: Clear to Auscultation bilaterally, no wheezes/rales/rhonchi Heart: Regular rate, regular rhythm, no murmurs, rubs, or gallops Abdomen: Soft, NT, +incision waleska CDI, ND, absent BS Extremities: No edema Skin: Warm, no rash, negative turgor. : +rosario cath in place Results & Data Results & Data ([facility]) Vital Signs (Past 12 Hours) Vital Signs Temp Pulse Pulse Resp BP Pulse Ox 05/02/20 07:00 36.4 C L 86 16 147/77 H 98 05/02/20 03:03 36.9 C 87 16 101/63 97 05/02/20 00:32 93 H 05/01/20 22:58 37.3 C 102 H 16 121/69 97
[2020-05-02] MEDS: SODIUM CHLORIDE 0.9% 1000ML 1,000 ML IV SCH (11:01)
[2020-05-02] MEDS: MoRPHine SULFATE 4 MG/ML 1 ML CARP\\VIAL IV PRN (12:19)
[2020-05-03] MEDS: SODIUM CHLORIDE 0.9% 1000ML 1,000 ML IV SCH ×2 (00:21→13:04)
--- NOTE | 2020-05-03 07:02 | Surgery Progress Note ---
Date of Service May 03, 2020 Assessment & Plan (1) SBO (small bowel obstruction): Some NG output but appears to be nonbilious Abdomen is mildly distended We will try clamping her NG tube and hopefully she can be mobilized Check a.m. labs No acute changes patient appears to be stable Results & Data Vital Signs (Past 12 Hours) Vital Signs Temp Pulse Pulse Resp BP Pulse Ox 05/03/20 06:51 36.9 C 88 19 151/74 H 94 05/03/20 04:25 36.8 C 91 H 18 148/77 H 95 05/03/20 02:19 92 H 05/02/20 23:09 36.9 C 94 H 18 150/77 H 95 PG Care Time/CCT Total # of Minutes Spent Total Time Spent with Patient: Total time spent is greater than 50% in coordination of care (as documented) at patient's floor/unit and/or counseling patient: Coding Level of Care Code None Diagnoses SBO (small bowel obstruction) K56.609
[2020-05-03] MEDS: FAMOTIDINE 20 MG in SYRINGE 3 ML IV SCH (08:39)
[2020-05-03] MEDS: cefTRIAXone SODIUM 1,000 MG in DEXTROSE 5% 50 ML IV SCH (08:39)
[2020-05-03 10:25] LABS: Hematocrit (blood only) 38.4 % (37-47); Hemoglobin 11.7 g/dL (12.0-16.0); Mean Corpuscular Hemoglobin 28.7 pg (25-34); Mean Corpuscular Hgb Conc 30.5 g/dL (32-36); Mean Corpuscular Volume 94.1 fL (80-100); Mean Platelet Volume 9.1 fL (7.4-10.4); Platelet Count 373 K/uL (130-400); RDW Standard Deviation 48.2 fL (36.4-46.3); Red Blood Count 4.08 M/uL (4.2-5.4); White Blood Count 11.96 K/uL (4.8-10.8)
[2020-05-03 11:02] LABS: BUN Creatinine Ratio 19.7 (10-20); Calcium 8.4 mg/dl (8.5-10.1); Creatinine Clr Calc Pharmacy 76.9 ml/min; Est GFR (African American) 108.1; Est GFR (Non-African American) 93.3; Potassium 3.6 mmol/L (3.5-5.1)
--- NOTE | 2020-05-03 13:53 | Hospitalist Progress Note ---
Date of Service May 03, 2020 Assessment & Plan (1) SBO (small bowel obstruction): This is an 80 yr old F who has a significant PMH of multiple sclerosis, Depression, osteoporosis, Dementia, neurogenic bladder occasional straight cath required who presents to ED 2/2 to N/V and weakness x 3 days. POD #2 /p ex lap, enterotomy removal of retained food products/stool ball by Dr. Fernandez continue NGT to LIS - 150cc output last shift IV APAP for pain control, avoid narcotics given delirium continue IVF Appreciate surgery recommendations Clinically better today Likely to discontinue NG tube this afternoon or tomorrow (2) UTI (urinary tract infection): Culture grew > 100k E. coli and alpha strep continue ceftriaxone day #4 of 5 (3) Leukocytosis: wbc 14k currently on antibiotics for UTI likely in setting of post op state (4) Electrolyte abnormality: hyponatremia and hypokalemia resolved, continue to monitor electroytes given GI loss with NG K 4.4 Electrolytes are normalized (5) Abnormal urinalysis: UA with + nitrates, leukocyte esterase, WBC, plus for bacteria but also numerous epithelial May be contaminated specimen. Patient denies symptoms although does have mild history of dementia. No fever or leukocytosis Treat empirically with 1 g Rocephin daily until culture returns culture still pending as of 05/01 @ 0938 Rocephin Day #4 (6) Delirium: pt with intermittent confusion and delirum in evening pt has known MS with cognitive dysfunction and dementia does not appear to be infectious source as she is afebrile, WBC WNL. She is on antibiotic for UTI She has not been given any narcotics. Vitals and labs are stable expect delirium to worsen given use of anesthetics will need frequent re orienting Delirium seems to be stabilizing. She has dementia though (7) Multiple sclerosis: no acute flare, slowly progressive MS mostly with gait disturbance ataxia to the R with some cognitive impairment follows [facility] (8) Dysthymic disorder: continue prozac when able to tolerate po (9) Osteoporosis: on calcium + vit D supplement as outpt (10) Neurogenic bladder: occassionally self caths prn rosario cath in place (11) DVT prophylaxis: Heparin d/c 2/2 to procedure, SCDs per surgery Disposition: admitted to [facility] tele Follow up: PCP Dr. Lewis upon discharge Admission and Anticipated Discharge Date Admission Date: April 29, 2020 Subjective Patient seen and examined in room 284-1 with nurse at bedside. Pt requiring one-to-one. Follow-up small bowel obstruction hospital day #3, Post op exp lap day #1. Patient is lying in bed, sleeping. Arouses to verbal stimulation. ROS unreliable given confusion. She denies any abdominal pain, nausea, vomiting, flatus. Rosario catheter still intact. Continues to have NG tube in place. One-to-one still at bedside. 05/03/2020 The patient was seen and examined in medical floor She has been feeling a lot better following laparoscopic surgery for SBO Wants to go home and denies any significant symptoms Apparently she has dementia Review of Systems Review of Systems: Unobtainable due to cognitive status Denies any significant symptoms though Physical Exam Physical Exam: Lying in bed comfortably Constitutional: well developed, well nourished and + ill appearing; no acute d istress Eyes: PERRL, conjunctivae normal, anicteric sclerae ENMT: external ear and nose normal, oropharynx normal Neck: trachea midline, no thyromegaly Respiratory: normal respiratory effort; no respiratory distress Auscultation: lungs clear to auscultation bilaterally Cardiovascular: Rate/Rhythm: regular rate and regular rhythm Heart Sounds: no murmur Gastrointestinal (Abdomen): Inspection/Auscultation: + abdomen distended (Minimally distended); + abnormal bowel sounds (Bowel sound diminished) Per cussion/Palpation: + abdomen tender (Mildly tender) and abdomen soft; no guarding and abdomen not rigid Musculoskeletal: No acute arthritis in any joint Neurologic: moves all extremities; no focal motor deficits Has dementia without any delirium Results & Data Results & Data ([facility]) Vital Signs (Past 12 Hours) Vital Signs Temp Pulse Pulse Pulse Resp BP BP 05/03/20 11:41 37.1 C 96 H 16 139/57 L 05/03/20 08:00 86 05/03/20 06:51 36.9 C 88 19 151/74 H 05/03/20 04:25 36.8 C 91 H 18 148/77 H 05/03/20 02:19 92 H Pulse Ox 05/03/20 11:41 98 05/03/20 08:00 05/03/20 06:51 94 05/03/20 04:25 95 05/03/20 02:19 Laboratory Results Short CBC 06/13/20 Range/Units 10:20 WBC 11.96 H (4.8-10.8) K/uL Hgb 11.7 L (12.0-16.0) g/dL Hct 38.4 (37-47) % Plt Count 373 (130-400) K/uL BMP 05/03/20 10:20 Sodium 143 Potassium 3.6 D Chloride 115 H Carbon Dioxide 20 L BUN 9 D Creatinine 0.47 L Glucose 92 Calcium 8.4 L Medications Administered Current Inpatient Medications Acetaminophen (Ofirmev) 1,000 mg IV Q6H PRN PRN Reason: Pain Stop: 05/05/20 09:29 Heparin Sodium (Porcine) (Heparin Sodium (Porcine)) 5,000 units SQ Q12 EDGAR Stop: 05/29/20 20:59 Last Admin: 05/02/20 08:17 Dose: 5,000 units Documented by: Famotidine 20 mg/ Syringe 5 mls @ 2.5 mls/min IV DAILY [facility]GAR Stop: 05/29/20 13:56 Last Admin: 05/03/20 08:39 Dose: 2.5 mls/min Documented by: Ceftriaxone Sodium 1,000 mg/ (Dextrose) 50 mls @ 100 mls/hr IV DAILY EDGAR; Protocol Stop: 05/05/20 09:29 Last Infusion: 05/03/20 09:30 Dose: Infused Documented by: Sodium Chloride (Nss 1000ml) 1,000 mls @ 80 mls/hr IV .[id number] EDGAR Stop: 06/01/20 10:29 Last Admin: 05/03/20 13:04 Dose: 80 mls/hr Documented by: Morphine Sulfate (Morphine Sulfate) 2 mg IV Q1H PRN PRN Reason: Pain Stop: 05/15/20 16:22 Last Admin: 05/02/20 12:19 Dose: 2 mg Documented by: Ondansetron HCl (Zofran) 4 mg IV Q6H PRN PRN Reason: Nausea Stop: 05/29/20 13:56 Last Admin: 05/01/20 16:34 Dose: 4 mg Documented by: Phenol (Chloraseptic 1.4% [place]) 1 sprays MT Q1H PRN PRN Reason: Sore Throat Stop: 05/29/20 15:49 Last Admin: 05/01/20 09:04 Dose: 1 sprays Documented by:
[2020-05-04] MEDS: SODIUM CHLORIDE 0.9% 1000ML 1,000 ML IV SCH (00:56)
[2020-05-04 07:25] LABS: BUN Creatinine Ratio 18.4 (10-20); Calcium 8.1 mg/dl (8.5-10.1); Creatinine Clr Calc Pharmacy 92.6 ml/min; Magnesium 2.1 mg/dl (1.8-2.4)
[2020-05-04] MEDS: NSS + 20MEQ KCL 20 MEQ/1,000 ML BAG IV SCH ×2 (08:07→20:48)
[2020-05-04] MEDS: POTASSIUM CHLORIDE / WTR 10 MEQ/100 ML PLCT IV SCH ×5 (08:07→10:25)
[2020-05-04] MEDS: cefTRIAXone SODIUM 1,000 MG in DEXTROSE 5% 50 ML IV SCH (08:08)
[2020-05-04] MEDS: FAMOTIDINE 20 MG in SYRINGE 3 ML IV SCH (08:08)
--- NOTE | 2020-05-04 08:10 | Surgery Progress Note ---
Date of Service May 04, 2020 Assessment & Plan (1) SBO (small bowel obstruction): POD 3 ex lap waiting return of bowel function keep NG for now, moderate drainage overnight K+ 3.0, K rider x 3, and add 20 meq to maintenance Subjective confused during the night, now on 1:1, pain control good, no flatus, OOB some with assist Physical Exam Gastrointestinal (Abdomen): Inspection/Auscultation: + abdomen distended (minimal), + abdominal surgical incision (dry, no erythema) and + hypoactive bowel sounds Percussion/Palpation: abdomen soft NGT 275 overnight, no ice Results & Data Vital Signs (Past 12 Hours) Vital Signs Temp Pulse Pulse Pulse Resp BP BP 05/04/20 07:19 36.7 C 85 18 146/69 H 05/04/20 05:00 36.9 C 82 18 143/66 H 05/04/20 02:13 103 H 05/03/20 23:11 37.0 C 96 H 18 147/70 H Pulse Ox 05/04/20 07:19 97 05/04/20 05:00 95 05/04/20 02:13 05/03/20 23:11 95 PG Care Time/CCT Total # of Minutes Spent Total Time Spent with Patient: Total time spent is greater than 50% in coordination of care (as documented) at patient's floor/unit and/or counseling patient: Coding Level of Care Code 26317 Inpt Consult Level 1 Diagnoses SBO (small bowel obstruction) K56.609
--- NOTE | 2020-05-04 11:19 | Hospitalist Progress Note ---
Date of Service May 04, 2020 Assessment & Plan (1) SBO (small bowel obstruction): This is an 80 yr old F who has a significant PMH of multiple sclerosis, Depression, osteoporosis, Dementia, neurogenic bladder occasional straight cath required who presents to ED 2/2 to N/V and weakness x 3 days. POD #3 /p ex lap, enterotomy removal of retained food products/stool ball by Dr. Fernandez continue NGT to LIS - 150cc output last shift IV APAP for pain control, avoid narcotics given delirium continue IVF Appreciate surgery recommendations Clinically better today As per surgical management (2) UTI (urinary tract infection): Culture grew > 100k E. coli and alpha strep continue ceftriaxone day #5 of 5 We will discontinue antibiotic tomorrow (3) Leukocytosis: wbc 14k currently on antibiotics for UTI likely in setting of post op state White count has been decreased to 11.96 (4) Electrolyte abnormality: hyponatremia and hypokalemia resolved, continue to monitor electroytes given GI loss with NG K 4.4 Electrolytes are normalized We will supplement more potassium (5) Abnormal urinalysis: UA with + nitrates, leukocyte esterase, WBC, plus for bacteria but also numerous epithelial May be contaminated specimen. Patient denies symptoms although does have mild history of dementia. No fever or leukocytosis Treat empirically with 1 g Rocephin daily until culture returns culture still pending as of 05/01 @ 0938 Rocephin Day #5 (6) Delirium: pt with intermittent confusion and delirum in evening pt has known MS with cognitive dysfunction and dementia does not appear to be infectious source as she is afebrile, WBC WNL. She is on antibiotic for UTI She has not been given any narcotics. Vitals and labs are stable expect delirium to worsen given use of anesthetics will need frequent re orienting Delirium seems to be stabilizing. She has dementia though Has occasional delirium in the hospital and requiring occasional doses of Haldol (7) Multiple sclerosis: no acute flare, slowly progressive MS mostly with gait disturbance ataxia to the R with some cognitive impairment follows [facility] neurology (8) Dysthymic disorder: continue prozac when able to tolerate po (9) Osteoporosis: on calcium + vit D supplement as outpt (10) Neurogenic bladder: occassionally self caths prn rosario cath in place (11) DVT prophylaxis: Heparin d/c 2/2 to procedure, SCDs per surgery Disposition: admitted to [facility] tele Follow up: PCP Dr. Lewis upon discharge Admission and Anticipated Discharge Date Admission Date: April 29, 2020 Subjective Patient seen and examined in room 284-1 with nurse at bedside. Pt requiring one-to-one. Follow-up small bowel obstruction hospital day #3, Post op exp lap day #1. Patient is lying in bed, sleeping. Arouses to verbal stimulation. ROS unreliable given confusion. She denies any abdominal pain, nausea, vomiting, flatus. Rosario catheter still intact. Continues to have NG tube in place. One-to-one still at bedside. 05/03/2020 The patient was seen and examined in medical floor She has been feeling a lot better following laparoscopic surgery for SBO Wants to go home and denies any significant symptoms Apparently she has dementia 05/04/2020 The patient was seen and examined in medical floor She has had agitation with delirium last night Has been feeling a lot better this morning and wants to go home Has very little insight about her current medical condition Denies any nausea and/or vomiting Review of Systems Review of Systems: Denies any significant symptoms though Physical Exam Physical Exam: Lying in bed comfortably Constitutional: well developed, well nourished and + ill appearing; no acute distress Eyes: PERRL, conjunctivae normal, anicteric sclerae ENMT: external ear and nose normal, oropharynx normal Neck: trachea midline, no thyromegaly Respiratory: normal respiratory effort; no respiratory distress Auscultation: lungs clear to auscultation bilaterally Cardiovascular: Rate/Rhythm: regular rate and regular rhythm Heart Sounds: no murmur Gastrointestinal (Abdomen): Inspection/Auscultation: + abdomen distended (Minimally distended); + abnormal bowel sounds (Bowel sound diminished) Percussion/Palpation: + abdomen tender (Mildly tender) and abdomen soft; no guarding and abdomen not rigid Musculoskeletal: No acute arthritis involving any joints Neurologic: moves all extremities; no focal motor deficits Lymphatic: no cervical or axillary lymphadenopathy Results & Data Results & Data ([facility]) Vital Signs (Past 12 Hours) Vital Signs Temp Pulse Pulse Pulse Resp BP BP 05/04/20 08:00 85 05/04/20 07:19 36.7 C 85 18 146/69 H 05/04/20 05:00 36.9 C 82 18 143/66 H 05/04/20 02:13 103 H Pulse Ox 05/04/20 08:00 05/04/20 07:19 97 05/04/20 05:00 95 05/04/20 02:13 Laboratory Results BMP 05/04/20 06:26 Sodium 141 Potassium 3.0 L D Chloride 111 H Carbon Dioxide 20 L BUN 7 Creatinine 0.38 L Glucose 83 Calcium 8.1 L Medications Administered Current Inpatient Medications Acetaminophen (Ofirmev) 1,000 mg IV Q6H PRN PRN Reason: Pain Stop: 05/05/20 09:29 Heparin Sodium (Porcine) (Heparin Sodium (Porcine)) 5,000 units SQ Q12 EDGAR Stop: 05/29/20 20:59 Last Admin: 05/02/20 08:17 Dose: 5,000 units Documented by: Famotidine 20 mg/ Syringe 5 mls @ 2.5 mls/min IV DAILY [facility] Stop: 05/29/20 13:56 Last Admin: 05/04/20 08:08 Dose: 2.5 mls/min Documented by: Ceftriaxone Sodium 1,000 mg/ (Dextrose) 50 mls @ 100 mls/hr IV DAILY EDGAR; Protocol Stop: 05/05/20 09:29 Last Infusion: 05/04/20 08:55 Dose: Infused Documented by: Potassium Chloride/Sodium Chloride (Normal Saline W/20 Meq Kcl) 20 meq in 1,000 mls @ 80 mls/hr IV .[id number] [facility] Stop: 06/03/20 07:59 Last Admin: 05/04/20 08:07 Dose: 80 mls/hr Documented by: Morphine Sulfate (Morphine Sulfate) 2 mg IV Q1H PRN PRN Reason: Pain Stop: 05/15/20 16:22 Last Admin: 05/02/20 12:19 Dose: 2 mg Documented by: Ondansetron HCl (Zofran) 4 mg IV Q6H PRN PRN Reason: Nausea Stop: 05/29/20 13:56 Last Admin: 05/01/20 16:34 Dose: 4 mg Documented by: Phenol (Chloraseptic 1.4% [place]) 1 sprays MT Q1H PRN PRN Reason: Sore Throat Stop: 05/29/20 15:49 Last Admin: 05/01/20 09:04 Dose: 1 sprays Documented by:
[2020-05-04] MEDS ORDERED: HALOPERIDOL LACTATE 5 MG/ML 1 ML VIAL ONE (15:31)
[2020-05-04] MEDS ORDERED: HALOPERIDOL LACTATE 5 MG/ML 1 ML VIAL IM STA (15:32)
[2020-05-04] MEDS ORDERED: LORazepam 0.5 MG/1 ML VIAL IV STA (18:47)
[2020-05-05 07:44] LABS: Basophils # (auto) 0.01 K/uL (0-0.2); Basophils % (auto) 0.1 %; Eosinophils % (auto) 1.2 %; Hematocrit (blood only) 37.4 % (37-47); Hemoglobin 12.2 g/dL (12.0-16.0); Immature Granulocytes # (auto) 0.04 K/uL (0.00-0.02); Immature Granulocytes % (auto) 0.5 %; Lymphocytes # (auto) 0.72 K/uL (1.2-3.4); Lymphocytes % (auto) 8.5 %; Mean Corpuscular Hgb Conc 32.6 g/dL (32-36); Mean Corpuscular Volume 92.1 fL (80-100); Mean Platelet Volume 9.3 fL (7.4-10.4); Monocytes # (auto) 0.34 K/uL (0.11-0.59); Neutrophils # (auto) 7.24 K/uL (1.4-6.5); Neutrophils % (auto) 85.7 %; Platelet Count 421 K/uL (130-400); RDW Coefficient of Variation 14.1 % (11.5-14.5); RDW Standard Deviation 47.6 fL (36.4-46.3); Red Blood Count 4.06 M/uL (4.2-5.4); White Blood Count 8.45 K/uL (4.8-10.8)
[2020-05-05 08:28] LABS: BUN Creatinine Ratio 20.1 (10-20); Calcium 8.5 mg/dl (8.5-10.1); Magnesium 2.1 mg/dl (1.8-2.4); Potassium 3.6 mmol/L (3.5-5.1)
[2020-05-05] MEDS: NSS + 20MEQ KCL 20 MEQ/1,000 ML BAG IV SCH ×2 (09:10→22:28)
[2020-05-05] MEDS: cefTRIAXone SODIUM 1,000 MG in DEXTROSE 5% 50 ML IV SCH (09:11)
[2020-05-05] MEDS: FAMOTIDINE 20 MG in SYRINGE 3 ML IV SCH (09:11)
[2020-05-05] MEDS ORDERED: bisacodyL 10 MG SUPP PR STA (10:49)
[2020-05-05] MEDS ORDERED: POLYETHYLENE (MIRALAX) 17 GM PACK NG STA (10:49)
--- NOTE | 2020-05-05 10:52 | Surgery Progress Note ---
Date of Service May 05, 2020 Assessment & Plan (1) SBO (small bowel obstruction): POD # 4 s/p ex lap, enterotomy removal of retained food products/stool ball - vitals stable, afebrile, postop leukocytosis resolved - adequate urine output - NGT- with dark brown output, no recorded output for last shift - minimal return of bowel function Plan: Continue NPO and NGT to LIS Dulcolax now Miralax via NGT and clamp NG for 1 hour then resume to LIS Continue IV Tylenol as needed for pain Continue Haq as she straight caths at home, per medicine to discontinue Continue medical management incentive spirometry scds for dvt prophylaxis pt/ot consults, increase mobility, oob to chair to help increase GI motility DR. Fernandez has seen patient and examined patient agrees with above Supervising Physician Co-Signing Physician Notes Interviewed and examined this patient I agree with the above note. Peristalsis may be returning if she has passed some flatus according to the patient. Going to try a suppository and some MiraLAX to try to stimulate bowel function. I would leave the NG tube in place for now. Subjective sleeping upon entering room, comfortable 1:1 at bedside, no flatus or bowel movement for them so far today She denies of significant pain, had one episode of flatus yesterday Physical Exam Constitutional: WD/WN, vitals as above no acute distress Gastrointestinal (Abdomen): Inspection/Auscultation: abdomen normal to inspection; abdomen not distended Percussion/Palpation: abdomen soft; abdomen nontender, no guarding and abdomen not rigid Skin: no rashes, warm and dry + incision (clean/dry/intact, [place] intact) Psychiatric: Orientation: alert Results & Data Vital Signs (Past 12 Hours) Vital Signs Temp Pulse Pulse Resp BP Pulse Ox 05/05/20 07:24 36.6 C 84 16 159/63 H 95 05/05/20 04:14 73 Laboratory Results 05/05/20 05/05/20 Range/Units 06:46 06:46 WBC 8.45 (4.8-10.8) K/uL RBC 4.06 L (4.2-5.4) M/uL Hgb 12.2 (12.0-16.0) g/dL Hct 37.4 (37-47) % MCV 92.1 (80-100) fL MCH 30.0 (25-34) pg MCHC 32.6 (32-36) g/dL RDW Std Deviation 47.6 H (36.4-46.3) fL RDW Coeff of [place] 14.1 (11.5-14.5) % Plt Count 421 H (130-400) K/uL MPV 9.3 (7.4-10.4) fL Immature Gran % (Auto) 0.5 % Neut % (Auto) 85.7 % Lymph % (Auto) 8.5 % [place] % (Auto) 4.0 % Eos % (Auto) 1.2 % Baso % (Auto) 0.1 % Immature Gran # (Auto) 0.04 H (0.00-0.02) K/uL Neut # (Auto) 7.24 H (1.4-6.5) K/uL Lymph # (Auto) 0.72 L (1.2-3.4) K/uL [place] # (Auto) 0.34 (0.11-0.59) K/uL Eos # (Auto) 0.10 (0-0.5) K/uL Baso # (Auto) 0.01 (0-0.2) K/uL Sodium 143 (136-145) mmol/L Potassium 3.6 D (3.5-5.1) mmol/L Chloride 112 H (98-107) mmol/L Carbon Dioxide 18 L (21-32) mmol/L Anion Gap 12.0 H (3-11) BUN 8 (7-18) mg/dl Creatinine 0.38 L (0.6-1.2) mg/dl Est Cr Clr Drug Dosing 92.0 ml/min Est GFR ( Amer) 116.0 Est GFR (Non-Af Amer) 100.0 BUN/Creatinine Ratio 20.1 H (10-20) Glucose 76 (70-99) mg/dl Calcium 8.5 (8.5-10.1) mg/dl Magnesium 2.1 (1.8-2.4) mg/dl
--- NOTE | 2020-05-05 14:01 | Hospitalist Progress Note ---
Date of Service May 05, 2020 Assessment & Plan (1) SBO (small bowel obstruction): This is an 80 yr old F who has a significant PMH of multiple sclerosis, Depression, osteoporosis, Dementia, neurogenic bladder occasional straight cath required who presents to ED 2/2 to N/V and weakness x 3 days. POD #4 /p ex lap, enterotomy removal of retained food products/stool ball by Dr. Fernandez continue NGT to LIS - 150cc output last shift IV APAP for pain control, avoid narcotics given delirium continue IVF Appreciate surgery recommendations Clinically better today, PT and OT have been ordered As per surgical management (2) UTI (urinary tract infection): Culture grew > 100k E. coli and alpha strep continue ceftriaxone day #5 of 5 DC antibiotic (3) Leukocytosis: wbc 14k currently on antibiotics for UTI likely in setting of post op state White count has been decreased to 11.96 White count is normalized (4) Electrolyte abnormality: hyponatremia and hypokalemia resolved, continue to monitor electroytes given GI loss with NG K 4.4 Electrolytes are normalized We will supplement more potassium (5) Abnormal urinalysis: UA with + nitrates, leukocyte esterase, WBC, plus for bacteria but also numerous epithelial May be contaminated specimen. Patient denies symptoms although does have mild history of dementia. No fever or leukocytosis Treat empirically with 1 g Rocephin daily until culture returns culture still pending as of 05/01 @ 0938 Rocephin Day #5 (6) Delirium: pt with intermittent confusion and delirum in evening pt has known MS with cognitive dysfunction and dementia does not appear to be infectious source as she is afebrile, WBC WNL. She is on antibiotic for UTI She has not been given any narcotics. Vitals and labs are stable expect delirium to worsen given use of anesthetics will need frequent re orienting Delirium seems to be stabilizing. She has dementia though Has occasional delirium in the hospital and requiring occasional doses of Haldol No more delirium as of this morning (7) Multiple sclerosis: no acute flare, slowly progressive MS mostly with gait disturbance ataxia to the R with some cognitive impairment follows [facility] neurology (8) Dysthymic disorder: continue prozac when able to tolerate po (9) Osteoporosis: on calcium + vit D supplement as outpt (10) Neurogenic bladder: occassionally self caths prn rosario cath in place (11) DVT prophylaxis: Heparin d/c 2/2 to procedure, SCDs per surgery Disposition: admitted to [facility] tele Follow up: PCP Dr. Lewis upon discharge Admission and Anticipated Discharge Date Admission Date: April 29, 2020 Subjective Patient seen and examined in room 284-1 with nurse at bedside. Pt requiring one-to-one. Follow-up small bowel obstruction hospital day #3, Post op exp lap day #1. Patient is lying in bed, sleeping. Arouses to verbal stimulation. ROS unreliable given confusion. She denies any abdominal pain, nausea, vomiting, flatus. Rosario catheter still intact. Continues to have NG tube in place. One-to-one still at bedside. 05/03/2020 The patient was seen and examined in medical floor She has been feeling a lot better following laparoscopic surgery for SBO Wants to go home and denies any significant symptoms Apparently she has dementia 05/04/2020 The patient was seen and examined in medical floor She has had agitation with delirium last night Has been feeling a lot better this morning and wants to go home Has very little insight about her current medical condition Denies any nausea and/or vomiting 05/05/2020 The patient was seen and examined in medical floor She has been much better since this morning and is sitting on a chair Denies any symptoms but looks sick Has not had a bowel movement yet and the NG tube is still in situ Review of Systems Review of Systems: Denies any significant symptoms though Constitutional: + weakness Physical Exam Physical Exam: Sitting on a chair without any acute distress Constitutional: well developed, well nourished, + ill appearing and + thin; no acute distress Eyes: PERRL, conjunctivae normal, anicteric sclerae ENMT: external ear and nose normal, oropharynx normal Neck: trachea midline, no thyromegaly Respiratory: normal respiratory effort; no respiratory distress Auscultation: lungs clear to auscultation bilaterally Cardiovascular: Rate/Rhythm: regular rate and regular rhythm Heart Sounds: no murmur Gastrointestinal (Abdomen): Inspection/Auscultation: + abdomen distended (Minimally distended); + abnormal bowel sounds (Bowel sound diminished) P ercussion/Palpation: + abdomen tender (Mildly tender) and abdomen soft; no guarding and abdomen not rigid Musculoskeletal: No acute arthritis involving any joints Neurologic: moves all extremities; no focal motor deficits Generally weak and lethargic Lymphatic: no cervical or axillary lymphadenopathy Results & Data Results [facility] Vital Signs (Past 12 Hours) Vital Signs Temp Pulse Pulse Pulse Resp BP Pulse Ox 05/05/20 11:15 36.7 C 80 18 153/75 H 96 05/05/20 07:24 36.6 C 84 16 159/63 H 95 05/05/20 04:14 73 Laboratory Results Short CBC 05/05/20 Range/Units 06:46 WBC 8.45 (4.8-10.8) K/uL Hgb 12.2 (12.0-16.0) g/dL Hct 37.4 (37-47) % Plt Count 421 H (130-400) K/uL BMP 05/05/20 06:46 Sodium 143 Potassium 3.6 D Chloride 112 H Carbon Dioxide 18 L BUN 8 Creatinine 0.38 L Glucose 76 Calcium 8.5 Medications Administered Current Inpatient Medications Heparin Sodium (Porcine) (Heparin Sodium (Porcine)) 5,000 units SQ Q12 [facility]GAR Stop: 05/29/20 20:59 Last Admin: 05/02/20 08:17 Dose: 5,000 units Documented by: Famotidine 20 mg/ Syringe 5 mls @ 2.5 mls/min IV DAILY [facility] Stop: 05/29/20 13:56 Last Admin: 05/05/20 09:11 Dose: 2.5 mls/min Documented by: Potassium Chloride/Sodium Chloride (Normal Saline W/20 Meq Kcl) 20 meq in 1,000 mls @ 80 mls/hr IV .[id number] [facility] Stop: 06/03/20 07:59 Last Admin: 05/05/20 09:10 Dose: 80 mls/hr Documented by: Morphine Sulfate (Morphine Sulfate) 2 mg IV Q1H PRN PRN Reason: Pain Stop: 05/15/20 16:22 Last Admin: 05/02/20 12:19 Dose: 2 mg Documented by: Ondansetron HCl (Zofran) 4 mg IV Q6H PRN PRN Reason: Nausea Stop: 05/29/20 13:56 Last Admin: 05/01/20 16:34 Dose: 4 mg Documented by: Phenol (Chloraseptic 1.4% [place]) 1 sprays MT Q1H PRN PRN Reason: Sore Throat Stop: 05/29/20 15:49 Last Admin: 05/01/20 09:04 Dose: 1 sprays Documented by:
--- NOTE | 2020-05-06 07:01 | Surgery Progress Note ---
Date of Service May 06, 2020 Assessment & Plan (1) SBO (small bowel obstruction): Peristalsis has returned, patient moving bowels Can DC NG tube today Begin clear liquids Encourage out of bed Subjective Postoperative day #5 status post exploratory laparotomy with release of small bowel obstruction Had large bowel movement after MiraLAX and suppository yesterday Denies abdominal pain Denies nausea Physical Exam Gastrointestinal (Abdomen): Inspection/Auscultation: normal bowel sounds and + abdominal surgical incision (Clean, dry and intact); abdomen not distended Percussion/Palpation: abdomen soft; abdomen nontender Results & Data Vital Signs (Past 12 Hours) Vital Signs Temp Pulse Pulse Resp BP Pulse Ox 05/06/20 03:33 36.7 C 91 H 20 155/79 H 96 05/06/20 01:53 93 H 05/05/20 23:40 36.5 C 93 H 16 157/77 H 94
[2020-05-06] MEDS: FAMOTIDINE 20 MG in SYRINGE 3 ML IV SCH (08:24)
[2020-05-06] MEDS: NSS + 20MEQ KCL 20 MEQ/1,000 ML BAG IV SCH ×2 (11:00→23:36)
--- NOTE | 2020-05-06 16:11 | Hospitalist Progress Note ---
Date of Service May 06, 2020 Assessment & Plan (1) SBO (small bowel obstruction): This is an 80 yr old F who has a significant PMH of multiple sclerosis, Depression, osteoporosis, Dementia, neurogenic bladder occasional straight cath required who presents to ED 2/2 to N/V and weakness x 3 days. POD #5 /p ex lap, enterotomy removal of retained food products/stool ball by Dr. Fernandez continue NGT to LIS - 150cc output last shift IV APAP for pain control, avoid narcotics given delirium continue IVF Appreciate surgery recommendations Clinically better today, PT and OT have been ordered Clinically much better today with bowel movement and taking out of NG tube Clears started and will advance as tolerated (2) UTI (urinary tract infection): Culture grew > 100k E. coli and alpha strep continue ceftriaxone day #5 of 5 DC antibiotic (3) Leukocytosis: wbc 14k currently on antibiotics for UTI likely in setting of post op state White count has been decreased to 11.96 White count is normalized (4) Electrolyte abnormality: hyponatremia and hypokalemia resolved, continue to monitor electroytes given GI loss with NG K 4.4 Electrolytes are normalized We will supplement more potassium We will repeat PRP tomorrow morning (5) Abnormal urinalysis: UA with + nitrates, leukocyte esterase, WBC, plus for bacteria but also numerous epithelial May be contaminated specimen. Patient denies symptoms although does have mild history of dementia. No fever or leukocytosis Treat empirically with 1 g Rocephin daily until culture returns culture still pending as of 05/01 @ 0938 Rocephin Day #5 (6) Delirium: pt with intermittent confusion and delirum in evening pt has known MS with cognitive dysfunction and dementia does not appear to be infectious source as she is afebrile, WBC WNL. She is on antibiotic for UTI She has not been given any narcotics. Vitals and labs are stable expect delirium to worsen given use of anesthetics will need frequent re orienting Delirium seems to be stabilizing. She has dementia though Has occasional delirium in the hospital and requiring occasional doses of Haldol No more delirium as of this morning (7) Multiple sclerosis: no acute flare, slowly progressive MS mostly with gait disturbance ataxia to the R with some cognitive impairment follows [facility] neurology (8) Dysthymic disorder: continue prozac when able to tolerate po (9) Osteoporosis: on calcium + vit D supplement as outpt (10) Neurogenic bladder: occassionally self caths prn rosario cath in place (11) DVT prophylaxis: Heparin d/c 2/2 to procedure, SCDs per surgery Disposition: admitted to [facility] tele Follow up: PCP Dr. Lewis upon discharge Likely discharge in a day or 2 Admission and Anticipated Discharge Date Admission Date: April 29, 2020 Subjective Patient seen and examined in room 284-1 with nurse at bedside. Pt requiring one-to-one. Follow-up small bowel obstruction hospital day #3, Post op exp lap day #1. Patient is lying in bed, sleeping. Arouses to verbal stimulation. ROS unreliable given confusion. She denies any abdominal pain, nausea, vomiting, flatus. Rosario catheter still intact. Continues to have NG tube in place. One-to-one still at bedside. 05/03/2020 The patient was seen and examined in medical floor She has been feeling a lot better following laparoscopic surgery for SBO Wants to go home and denies any significant symptoms Apparently she has dementia 05/04/2020 The patient was seen and examined in medical floor She has had agitation with delirium last night Has been feeling a lot better this morning and wants to go home Has very little insight about her current medical condition Denies any nausea and/or vomiting 05/05/2020 The patient was seen and examined in medical floor She has been much better since this morning and is sitting on a chair Denies any symptoms but looks sick Has not had a bowel movement yet and the NG tube is still in situ 05/06/2020 The patient was seen and examined in medical floor She has been feeling much better today Bowel is moved and the NG tube is out Clears started and will advance as tolerated Review of Systems Review of Systems: Denies any significant symptoms though Constitutional: + weakness Physical Exam Physical Exam: Sitting on a chair without any acute distress Constitutional: well developed, well nourished, + ill appearing and + thin; no acute distress Eyes: PERRL, conjunctivae normal, anicteric sclerae ENMT: external ear and nose normal, oropharynx normal Neck: trachea midline, no thyromegaly Respiratory: normal respiratory effort; no respiratory distress Auscultation: lungs clear to auscultation bilaterally Cardiovascular: Rate/Rhythm: regular rate and regular rhythm Heart Sounds: no murmur Gastrointestinal (Abdomen): Inspection/Auscultation: + abdomen distended (Minimally distended) Percussion/Palpation: + abdomen tender (Mildly tender) and abdomen soft; no guarding and abdomen not rigid Musculoskeletal: No acute arthritis involving any joints Neurologic: moves all extremities; no focal motor deficits Pleasantly confused Lymphatic: no cervical or axillary lymphadenopathy Results & Data Results & Data ([facility]) Vital Signs (Past 12 Hours) Vital Signs Temp Pulse Pulse Resp BP BP Pulse Ox 05/06/20 15:08 36.6 C 96 H 16 116/67 96 05/06/20 11:24 36.7 C 82 18 130/75 96 05/06/20 07:46 36.7 C 85 20 148/81 H 95 Medications Administered Current Inpatient Medications Heparin Sodium (Porcine) (Heparin Sodium (Porcine)) 5,000 units SQ Q12 EDGAR Stop: 05/29/20 20:59 Last Admin: 05/02/20 08:17 Dose: 5,000 units Documented by: Famotidine 20 mg/ Syringe 5 mls @ 2.5 mls/min IV DAILY EDGAR Stop: 05/29/20 13:56 Last Admin: 05/06/20 08:24 Dose: 2.5 mls/min Documented by: Potassium Chloride/Sodium Chloride (Normal Saline W/20 Meq Kcl) 20 meq in 1,000 mls @ 80 mls/hr IV .[id number] EDGAR Stop: 06/03/20 07:59 Last Admin: 05/06/20 11:00 Dose: 80 mls/hr Documented by: Morphine Sulfate (Morphine Sulfate) 2 mg IV Q1H PRN PRN Reason: Pain Stop: 05/15/20 16:22 Last Admin: 05/02/20 12:19 Dose: 2 mg Documented by: Ondansetron HCl (Zofran) 4 mg IV Q6H PRN PRN Reason: Nausea Stop: 05/29/20 13:56 Last Admin: 05/01/20 16:34 Dose: 4 mg Documented by: Phenol (Chloraseptic 1.4% [place]) 1 sprays MT Q1H PRN PRN Reason: Sore Throat Stop: 05/29/20 15:49 Last Admin: 05/01/20 09:04 Dose: 1 sprays Documented by:
--- NOTE | 2020-05-07 07:37 | Surgery Progress Note ---
Date of Service May 07, 2020 Assessment & Plan (1) SBO (small bowel obstruction): Postoperative day #6 status post exploratory laparotomy with release of small bowel obstruction. Peristalsis has returned and she is tolerating clear liquid diet Can advance to low fiber diet Can increase activity as tolerated Present on Admission?: Yes Subjective Postoperative day #6 status post exploratory laparotomy for release of small bowel obstruction Tolerated clear liquids yesterday Denies nausea and vomiting Had bowel movements Awake and alert and answering questions appropriately Physical Exam Gastrointestinal (Abdomen): Inspection/Auscultation: normal bowel sounds and + abdominal surgical incision (Clean, dry and intact); abdomen not distended Percussion/Palpation: abdomen soft; abdomen nontender Results & Data Vital Signs (Past 12 Hours) Vital Signs Temp Pulse Pulse Resp BP BP Pulse Ox 05/07/20 07:01 37.0 C 82 20 126/72 96 05/07/20 07:00 88 05/07/20 03:57 36.9 C 84 20 133/79 95 05/06/20 23:30 36.8 C 84 18 136/65 95 05/06/20 22:20 87
[2020-05-07 08:03] LABS: Basophils # (auto) 0.01 K/uL (0-0.2); Basophils % (auto) 0.1 %; Eosinophils # (auto) 0.09 K/uL (0-0.5); Eosinophils % (auto) 1.3 %; Hematocrit (blood only) 32.6 % (37-47); Immature Granulocytes # (auto) 0.04 K/uL (0.00-0.02); Immature Granulocytes % (auto) 0.6 %; Lymphocytes # (auto) 0.76 K/uL (1.2-3.4); Lymphocytes % (auto) 10.6 %; Mean Corpuscular Hemoglobin 30.3 pg (25-34); Mean Corpuscular Hgb Conc 33.7 g/dL (32-36); Mean Corpuscular Volume 89.8 fL (80-100); Mean Platelet Volume 8.8 fL (7.4-10.4); Monocytes # (auto) 0.42 K/uL (0.11-0.59); Monocytes % (auto) 5.9 %; Neutrophils # (auto) 5.85 K/uL (1.4-6.5); Neutrophils % (auto) 81.5 %; Platelet Count 372 K/uL (130-400); RDW Coefficient of Variation 13.9 % (11.5-14.5); RDW Standard Deviation 46.2 fL (36.4-46.3); Red Blood Count 3.63 M/uL (4.2-5.4); White Blood Count 7.17 K/uL (4.8-10.8)
[2020-05-07 08:29] LABS: BUN Creatinine Ratio 6.7 (10-20); Creatinine Clr Calc Pharmacy 70.1 ml/min; Est GFR (African American) 108.9; Magnesium 1.7 mg/dl (1.8-2.4); Potassium 3.2 mmol/L (3.5-5.1)
[2020-05-07] MEDS: FAMOTIDINE 20 MG in SYRINGE 3 ML IV SCH (08:51)
--- NOTE | 2020-05-07 11:34 | Hospitalist Progress Note ---
Date of Service May 07, 2020 Assessment & Plan (1) SBO (small bowel obstruction): This is an 80 yr old F who has a significant PMH of multiple sclerosis, Depression, osteoporosis, Dementia, neurogenic bladder occasional straight cath required who presents to ED 2/2 to N/V and weakness x 3 days. POD #6 /p ex lap, enterotomy removal of retained food products/stool ball by Dr. Fernandez (on 05/01/2020) NGT removed Patient tolerated clear liquid diet, and now advanced to low fiber IV APAP for pain control, avoid narcotics given delirium continue IVF Appreciate surgery recommendations Clinically better today, PT and OT have been ordered, plan to discharge to [facility] ordered for placement Patient is having bowel movements and tolerating diet (2) UTI (urinary tract infection): Culture grew > 100k E. coli and alpha strep continued ceftriaxone day #5 of 5 DC 'ed antibiotic (3) Leukocytosis: Resolved WBC 14k was on antibiotics for UTI likely in setting of post op state White blood cell count has been decreasing, now normalized, currently 7K (4) Electrolyte abnormality: hyponatremia and hypokalemia, hypomagnesemia, hypophosphatemia Hyponatremia resolved continue to monitor electrolytes given GI loss with NG Replace and monitor Electrolytes should normalize with normal p.o. intake (5) Abnormal urinalysis: UA with + nitrates, leukocyte esterase, WBC, plus for bacteria but also numerous epithelial May be contaminated specimen. Patient denies symptoms although does have mild history of dementia. No fever or leukocytosis Treated empirically with 1 g Rocephin daily until culture returns culture positive for E. coli and alpha strep Rocephin Day #5 Treatment finished (6) Delirium: pt with intermittent confusion and delirum in evening pt has known MS with cognitive dysfunction and dementia does not appear to be infectious source as she is afebrile, WBC WNL. She was on antibiotic for UTI She has not been given any narcotics. Vitals and labs are stable expect delirium to worsen given use of anesthetics will need frequent re orienting Delirium seems to be stabilizing. She has dementia though Has occasional delirium in the hospital and requiring occasional doses of Haldol No more delirium (7) Multiple sclerosis: no acute flare, slowly progressive MS mostly with gait disturbance ataxia to the R with some cognitive impairment follows [facility] neurology (8) Dysthymic disorder: continue prozac when able to tolerate po (9) Osteoporosis: on calcium + vit D supplement as outpt (10) Neurogenic bladder: occassionally self caths prn rosario cath in place (11) DVT prophylaxis: Heparin d/c 2/2 to procedure, SCDs per surgery Disposition: admitted to [facility] tele Follow up: PCP Dr. Lewis upon discharge Likely discharge in a day or 2 Admission and Anticipated Discharge Date Admission Date: April 29, 2020 Subjective Postoperative day #6 status post exploratory laparotomy for release of small bowel obstruction Tolerated clear liquids yesterday and now advanced diet to low fiber. Patient is currently sitting up in bed, eating lunch, in no acute distress. She is inquiring about going home, denies any abdominal pain, nausea or vomiting. She also denies any fevers or chills, chest pain or shortness of breath. Patient seems little confused, thinks that she has been in hospital too long and that "people are not letting her go home". Review of Systems Review of Systems: All systems reviewed & are unremarkable except as noted in HPI & below Constitutional: no fever and no chills Respiratory: no cough and no dyspnea Cardiovascular: no chest pain and no dyspnea on exertion Gastrointestinal: no abdominal pain, no nausea and no vomiting Physical Exam Physical Exam: Physical Exam: Elderly female, sitting up in bed, eating lunch, in no acute distress Constitutional: well developed, well nourished, + ill appearing and + thin; no acute distress Eyes: PERRL, conjunctivae normal, anicteric sclerae ENMT: external ear and nose normal, oropharynx normal Neck: trachea midline, no thyromegaly Respiratory: normal respiratory effort; no respiratory distress Auscultation: lungs clear to auscultation bilaterally Cardiovascular: Rate/Rhythm: regular rate and regular rhythm Heart Sounds: no murmur Gastrointestinal (Abdomen): Inspection/Auscultation: + abdomen only very mildly distended, percussion/Palpation: Nontender to palpation, soft; no guarding and abdomen not rigid, surgical scar clean dry intact Musculoskeletal: Moves all extremities spontaneously Neurologic: moves all extremities; no focal motor deficits Pleasantly confused Results & Data Results & Data ([facility]) Vital Signs (Past 12 Hours) Vital Signs Temp Pulse Pulse Resp BP BP Pulse Ox 05/07/20 11:00 37.0 C 96 H 20 118/75 98 05/07/20 07:01 37.0 C 82 20 126/72 96 05/07/20 07:00 88 05/07/20 03:57 36.9 C 84 20 133/79 95 Laboratory Results 05/07/20 05/07/20 Range/Units 07:43 07:43 WBC 7.17 (4.8-10.8) K/uL RBC 3.63 L (4.2-5.4) M/uL Hgb 11.0 L (12.0-16.0) g/dL Hct 32.6 L (37-47) % MCV 89.8 (80-100) fL MCH 30.3 (25-34) pg MCHC 33.7 (32-36) g/dL RDW Std Deviation 46.2 (36.4-46.3) fL RDW Coeff of Swetha 13.9 (11.5-14.5) % Plt Count 372 (130-400) K/uL MPV 8.8 (7.4-10.4) fL Immature Gran % (Auto) 0.6 % Neut % (Auto) 81.5 % Lymph % (Auto) 10.6 % [place] % (Auto) 5.9 % Eos % (Auto) 1.3 % Baso % (Auto) 0.1 % Immature Gran # (Auto) 0.04 H (0.00-0.02) K/uL Neut # (Auto) 5.85 (1.4-6.5) K/uL Lymph # (Auto) 0.76 L (1.2-3.4) K/uL [place] # (Auto) 0.42 (0.11-0.59) K/uL Eos # (Auto) 0.09 (0-0.5) K/uL Baso # (Auto) 0.01 (0-0.2) K/uL Sodium 144 (136-145) mmol/L Potassium 3.2 L (3.5-5.1) mmol/L Chloride 113 H (98-107) mmol/L Carbon Dioxide 26 (21-32) mmol/L Anion Gap 5.0 (3-11) BUN 3 L (7-18) mg/dl Creatinine 0.46 L (0.6-1.2) mg/dl Est Cr Clr Drug Dosing 70.1 ml/min Est GFR ( Amer) 108.9 Est GFR (Non-Af Amer) 94.0 BUN/Creatinine Ratio 6.7 L (10-20) Glucose 93 (70-99) mg/dl Calcium 8.0 L (8.5-10.1) mg/dl Magnesium 1.7 L (1.8-2.4) mg/dl Medications Administered Current Inpatient Medications Heparin Sodium (Porcine) (Heparin Sodium (Porcine)) 5,000 units SQ Q12 EDGAR Stop: 05/29/20 20:59 Last Admin: 05/02/20 08:17 Dose: 5,000 units Documented by: Famotidine 20 mg/ Syringe 5 mls @ 2.5 mls/min IV DAILY EDGAR Stop: 05/29/20 13:56 Last Admin: 05/07/20 08:51 Dose: 2.5 mls/min Documented by: Potassium Chloride/Sodium Chloride (Normal Saline W/20 Meq Kcl) 20 meq in 1,000 mls @ 80 mls/hr IV .[id number] EDGAR Stop: 06/03/20 07:59 Last Admin: 05/06/20 23:36 Dose: 80 mls/hr Documented by: Magnesium Sulfate/Dextrose (Magnesium Sulfate / D5w) 1 gm in 100 mls @ 50 mls/hr IV ONE ONE Stop: 05/07/20 13:31 Morphine Sulfate (Morphine Sulfate) 2 mg IV Q1H PRN PRN Reason: Pain Stop: 05/15/20 16:22 Last Admin: 05/02/20 12:19 Dose: 2 mg Documented by: Ondansetron HCl (Zofran) 4 mg IV Q6H PRN PRN Reason: Nausea Stop: 05/29/20 13:56 Last Admin: 05/01/20 16:34 Dose: 4 mg Documented by: Phenol (Chloraseptic 1.4% [place]) 1 sprays MT Q1H PRN PRN Reason: Sore Throat Stop: 05/29/20 15:49 Last Admin: 05/01/20 09:04 Dose: 1 sprays Documented by: Potassium Chloride (Klor-Con M20) 40 meq PO NOW STA Stop: 05/07/20 11:32
[2020-05-07] MEDS: NSS + 20MEQ KCL 20 MEQ/1,000 ML BAG IV SCH (12:00)
[2020-05-07] MEDS ORDERED: POTASSIUM CHLORIDE 20 MEQ TABCR PO ONE (12:00)
[2020-05-07] MEDS ORDERED: MAGNESIUM SULFATE / D5W 1 GM/100 ML BAG IV ONE (12:00)
[2020-05-07] MEDS ORDERED: POTASSIUM PHOS 3 MMOL/1 ML INFUSION IV STA (15:15)
[2020-05-07] MEDS ORDERED: POTASSIUM PHOSPHATE 15 MMOL in SODIUM CHLORIDE 0.9% 250 ML IV ONE (15:30)
[2020-05-08] MEDS: NSS + 20MEQ KCL 20 MEQ/1,000 ML BAG IV SCH (00:29)
[2020-05-08] MEDS ORDERED: MELATONIN 3 MG TAB PO PRN (01:29)
[2020-05-08 06:23] LABS: Hematocrit (blood only) 29.9 % (37-47); Mean Corpuscular Hemoglobin 30.3 pg (25-34); Mean Corpuscular Hgb Conc 33.4 g/dL (32-36); Mean Corpuscular Volume 90.6 fL (80-100); Platelet Count 374 K/uL (130-400); RDW Coefficient of Variation 14.2 % (11.5-14.5); RDW Standard Deviation 47.1 fL (36.4-46.3); White Blood Count 6.13 K/uL (4.8-10.8)
[2020-05-08 07:04] LABS: BUN Creatinine Ratio 6.4 (10-20); Calcium 7.7 mg/dl (8.5-10.1); Creatinine Clr Calc Pharmacy 78.5 ml/min; Est GFR (African American) 109.7; Est GFR (Non-African American) 94.6; Magnesium 1.9 mg/dl (1.8-2.4); Phosphorus 2.3 mg/dl (2.5-4.9)
[2020-05-08] MEDS: FAMOTIDINE 20 MG in SYRINGE 3 ML IV SCH (07:42)
--- NOTE | 2020-05-08 08:12 | Hospitalist Progress Note ---
Date of Service May 08, 2020 Assessment & Plan (1) SBO (small bowel obstruction): This is an 80 yr old F who has a significant PMH of multiple sclerosis, Depression, osteoporosis, Dementia, neurogenic bladder occasional straight cath required who presents to ED 2/2 to N/V and weakness x 3 days. POD #7 /p ex lap, enterotomy removal of retained food products/stool ball by Dr. Fernandez (on 05/01/2020) NGT removed Patient tolerates low fiber diet No complaints of pain stop IVF Appreciate surgery recommendations Patient is having bowel movements and tolerating diet Clinically better today, plan to discharge to [facility] COVID 19 ordered for placement (2) UTI (urinary tract infection): Culture grew > 100k E. coli and alpha strep continued ceftriaxone day #5 of 5 DC 'ed antibiotic (3) Leukocytosis: Resolved WBC 14k was on antibiotics for UTI likely in setting of post op state White blood cell count has been decreasing, now normalized, currently 6K (4) Electrolyte abnormality: hyponatremia and hypokalemia, hypomagnesemia, hypophosphatemia Hyponatremia resolved continue to monitor electrolytes given GI loss with NG Replace and monitor Electrolytes should normalize with normal p.o. intake Currently electrolytes normalized, recommend to recheck BMP within 1 week including magnesium and phosphorus levels Anemia -Likely dilutional due to IV fluids, only minimal blood loss during surgery -Recommend to recheck H&H within 1 week as outpatient (5) Abnormal urinalysis: UA with + nitrates, leukocyte esterase, WBC, plus for bacteria but also numerous epithelial May be contaminated specimen. Patient denies symptoms although does have mild history of dementia. No fever or leukocytosis Treated empirically with 1 g Rocephin daily until culture returns culture positive for E. coli and alpha strep Rocephin Day #5 Treatment finished (6) Delirium: pt with intermittent confusion and delirum in evening pt has known MS with cognitive dysfunction and dementia does not appear to be infectious source as she is afebrile, WBC WNL. She was on antibiotic for UTI She has not been given any narcotics. Vitals and labs are stable Delirium seems to be improved. She has dementia though Had occasional delirium in the hospital and required occasional doses of Haldol No more delirium (7) Multiple sclerosis: no acute flare, slowly progressive MS mostly with gait disturbance ataxia to the R with some cognitive impairment follows [facility] neurology (8) Dysthymic disorder: continue prozac when able to tolerate po (9) Osteoporosis: on calcium + vit D supplement as outpt (10) Neurogenic bladder: occassionally self caths prn rosario cath in place (11) DVT prophylaxis: Heparin d/c 2/2 to procedure, SCDs per surgery Disposition: Plan to discharge to [facility] Follow up: PCP Dr. Lewis upon discharge Admission and Anticipated Discharge Date Admission Date: April 29, 2020 Subjective Postoperative day #7 status post exploratory laparotomy for release of small bowel obstruction Patient tolerates low fiber diet, patient is currently sitting up in bed, in no acute distress. She is inquiring about going home, denies any abdominal pain, nausea or vomiting. She also denies any fevers or chills, chest pain or shortness of breath. She is having bowel movements. Discussed with surgery, safe to discharge from hospital. Plan to follow-up with surgery for [place] removal. Review of Systems Review of Systems: All systems reviewed & are unremarkable except as noted in HPI & below Constitutional: no fever and no chills Respiratory: no cough and no dyspnea Cardiovascular: no chest pain and no palpitations Gastrointestinal: no abdominal pain, no nausea and no vomiting Physical Exam Physical Exam: Physical Exam: Elderly female, sitting up in bed, in no acute distress Constitutional: well developed, well nourished, + ill appearing and + thin; no acute distress Eyes: PERRL, conjunctivae normal, anicteric sclerae ENMT: external ear and nose normal, oropharynx normal Neck: trachea midline, no thyromegaly Respiratory: normal respiratory effort; no respiratory distress Auscultation: lungs clear to auscultation bilaterally, no wheezing, rhonchi or crackles Cardiovascular: Rate/Rhythm: regular rate and regular rhythm Heart Sounds: no murmur Gastrointestinal (Abdomen): + Bowel sounds, abdomen not distended, Nontender to palpation, soft; no guarding and abdomen not rigid, surgical scar clean dry intact Musculoskeletal: Moves all extremities spontaneously Neurologic: Currently patient is alert and oriented, answers questions appropriately, speech fluent, no facial asymmetry, moves all extremities; no focal motor deficits, on and off pleasantly confused Results & Data Results & Data ([facility]) Vital Signs (Past 12 Hours) Vital Signs Temp Pulse Pulse Resp BP Pulse Ox 06/17/20 23:59 90 05/07/20 23:00 37.1 C 85 20 149/76 H 96 Laboratory Results 05/08/20 05/08/20 05/07/20 Range/Units 05:47 05:47 21:05 WBC 6.13 (4.8-10.8) K/uL RBC 3.30 L (4.2-5.4) M/uL Hgb 10.0 L (12.0-16.0) g/dL Hct 29.9 L (37-47) % MCV 90.6 (80-100) fL MCH 30.3 (25-34) pg MCHC 33.4 (32-36) g/dL RDW Std Deviation 47.1 H (36.4-46.3) fL RDW Coeff of Swetha 14.2 (11.5-14.5) % Plt Count 374 (130-400) K/uL MPV 9.0 (7.4-10.4) fL Sodium 146 H (136-145) mmol/L Potassium 4.0 D (3.5-5.1) mmol/L Chloride 115 H (98-107) mmol/L Carbon Dioxide 26 (21-32) mmol/L Anion Gap 4.0 (3-11) BUN 3 L (7-18) mg/dl Creatinine 0.45 L (0.6-1.2) mg/dl Est Cr Clr Drug Dosing 78.5 ml/min Est GFR ( Amer) 109.7 Est GFR (Non-Af Amer) 94.6 BUN/Creatinine Ratio 6.4 L (10-20) Glucose 89 (70-99) mg/dl Calcium 7.7 L (8.5-10.1) mg/dl Phosphorus 2.3 L (2.5-4.9) mg/dl Magnesium 1.9 (1.8-2.4) mg/dl SARS-CoV-2 RNA (RT-PCR) Pending 05/07/20 05/07/20 Range/Units 07:43 07:43 WBC (4.8-10.8) K/uL RBC (4.2-5.4) M/uL Hgb (12.0-16.0) g/dL Hct (37-47) % MCV (80-100) fL MCH (25-34) pg MCHC (32-36) g/dL RDW Std Deviation (36.4-46.3) fL RDW Coeff of Swetha (11.5-14.5) % Plt Count (130-400) K/uL MPV (7.4-10.4) fL Sodium 144 (136-145) mmol/L Potassium 3.2 L (3.5-5.1) mmol/L Chloride 113 H (98-107) mmol/L Carbon Dioxide 26 (21-32) mmol/L Anion Gap 5.0 (3-11) BUN 3 L (7-18) mg/dl Creatinine 0.46 L (0.6-1.2) mg/dl Est Cr Clr Drug Dosing 70.1 ml/min Est GFR ( Amer) 108.9 Est GFR (Non-Af Amer) 94.0 BUN/Creatinine Ratio 6.7 L (10-20) Glucose 93 (70-99) mg/dl Calcium 8.0 L (8.5-10.1) mg/dl Phosphorus 1.8 L (2.5-4.9) mg/dl Magnesium 1.7 L (1.8-2.4) mg/dl SARS-CoV-2 RNA (RT-PCR) Medications Administered Current Inpatient Medications Heparin Sodium (Porcine) (Heparin Sodium (Porcine)) 5,000 units SQ Q12 EDGAR Stop: 05/29/20 20:59 Last Admin: 05/02/20 08:17 Dose: 5,000 units Documented by: Famotidine 20 mg/ Syringe 5 mls @ 2.5 mls/min IV DAILY EDGAR Stop: 05/29/20 13:56 Last Admin: 05/08/20 07:42 Dose: 2.5 mls/min Documented by: Potassium Chloride/Sodium Chloride (Normal Saline W/20 Meq Kcl) 20 meq in 1,000 mls @ 80 mls/hr IV .[id number] EDGAR Stop: 06/03/20 07:59 Last Admin: 05/08/20 00:29 Dose: 80 mls/hr Documented by: Melatonin (Melatonin) 3 mg PO HS PRN PRN Reason: Sleep Stop: 06/07/20 01:28 Morphine Sulfate (Morphine Sulfate) 2 mg IV Q1H PRN PRN Reason: Pain Stop: 05/15/20 16:22 Last Admin: 05/02/20 12:19 Dose: 2 mg Documented by: Ondansetron HCl (Zofran) 4 mg IV Q6H PRN PRN Reason: Nausea Stop: 05/29/20 13:56 Last Admin: 05/01/20 16:34 Dose: 4 mg Documented by: Phenol (Chloraseptic 1.4% [place]) 1 sprays MT Q1H PRN PRN Reason: Sore Throat Stop: 05/29/20 15:49 Last Admin: 05/01/20 09:04 Dose: 1 sprays Documented by:
--- NOTE | 2020-05-08 09:50 | Surgery Progress Note ---
Date of Service May 08, 2020 Assessment & Plan (1) SBO (small bowel obstruction): Postoperative day #7 status post exploratory laparotomy with release of small bowel obstruction Doing well Bowels moving Tolerating regular diet Can be discharged to home Will need to follow-up with us next week for staple removal Subjective Postoperative day #7 status post oratory laparotomy with release of small bowel obstruction Tolerating regular diet Awake and alert No nausea Moving bowels and passing flatus Physical Exam Gastrointestinal (Abdomen): Inspection/Auscultation: + abdominal surgical incision (Clean, dry and intact); abdomen not distended Percussion/Palpation: abdomen soft; abdomen nontender Results & Data Vital Signs (Past 12 Hours) Vital Signs Temp Pulse Pulse Resp BP Pulse Ox 05/08/20 07:45 89 05/07/20 23:59 90 05/07/20 23:00 37.1 C 85 20 149/76 H 96 Laboratory Results 05/08/20 05/08/20 05/07/20 Range/Units 05:47 05:47 21:05 WBC 6.13 (4.8-10.8) K/uL RBC 3.30 L (4.2-5.4) M/uL Hgb 10.0 L (12.0-16.0) g/dL Hct 29.9 L (37-47) % MCV 90.6 (80-100) fL MCH 30.3 (25-34) pg MCHC 33.4 (32-36) g/dL RDW Std Deviation 47.1 H (36.4-46.3) fL RDW Coeff of Swetha 14.2 (11.5-14.5) % Plt Count 374 (130-400) K/uL MPV 9.0 (7.4-10.4) fL Sodium 146 H (136-145) mmol/L Potassium 4.0 D (3.5-5.1) mmol/L Chloride 115 H (98-107) mmol/L Carbon Dioxide 26 (21-32) mmol/L Anion Gap 4.0 (3-11) BUN 3 L (7-18) mg/dl Creatinine 0.45 L (0.6-1.2) mg/dl Est Cr Clr Drug Dosing 78.5 ml/min Est GFR ( Amer) 109.7 Est GFR (Non-Af Amer) 94.6 BUN/Creatinine Ratio 6.4 L (10-20) Glucose 89 (70-99) mg/dl Calcium 7.7 L (8.5-10.1) mg/dl Phosphorus 2.3 L (2.5-4.9) mg/dl Magnesium 1.9 (1.8-2.4) mg/dl SARS-CoV-2 RNA (RT-PCR) Pending 05/07/20 Range/Units 07:43 WBC (4.8-10.8) K/uL RBC (4.2-5.4) M/uL Hgb (12.0-16.0) g/dL Hct (37-47) % MCV (80-100) fL MCH (25-34) pg MCHC (32-36) g/dL RDW Std Deviation (36.4-46.3) fL RDW Coeff of Swetha (11.5-14.5) % Plt Count (130-400) K/uL MPV (7.4-10.4) fL Sodium (136-145) mmol/L Potassium (3.5-5.1) mmol/L Chloride (98-107) mmol/L Carbon Dioxide (21-32) mmol/L Anion Gap (3-11) BUN (7-18) mg/dl Creatinine (0.6-1.2) mg/dl Est Cr Clr Drug Dosing ml/min Est GFR ( Amer) Est GFR (Non-Af Amer) BUN/Creatinine Ratio (10-20) Glucose (70-99) mg/dl Calcium (8.5-10.1) mg/dl Phosphorus 1.8 L (2.5-4.9) mg/dl Magnesium (1.8-2.4) mg/dl SARS-CoV-2 RNA (RT-PCR)
--- NOTE | 2020-05-08 10:05 | Discharge Summary ---
Date of Service May 08, 2020 Admission HPI Per Admitting Provider This is an 80 yr old F who has a significant PMH of multiple sclerosis, Depression, osteoporosis, Dementia, neurogenic bladder occasional straight cath required who presents to ED 2/2 to N/V and weakness x 3 days. Last time she tolerated PO intake was 04/24. She started noticing nausea and becoming increasingly weak. Further admits to emesis, 5 episodes yesterday, bilious emesis and last episode 0300. She presented to urgent care this morning who referred her to ED for further eval. She denies any recent f/c/s, dizziness, lightheaded, chest pain, sob, cough, palpitations, hemoptysis, hematemesis, abdominal pain, melena, hematochezia. Last BM 2-3 days ago. Takes miralax daily due to constipation. Denies any prior hx of SBO. Prior hx of abd surgeries including csection x 2, hysterectomy, appendectomy and cholecystectomy. She does admit to incontinence and HS straight cath due to neurogenic bladder from multiple back surgeries in the past. In ED pt remained hemodynamically stable. Imaging revealed moderate grade small bowel obstruction with transition point within the right mid abdomen. Nonspecific mild wall thickening at site of obstruction with small bowel feces sign. General surgery was consulted and NG tube was placed. She was hypokalemic with K of 3.0 and lipase elevated at 408. Admission Exam Per Admitting Provider Constitutional: Thin, petite, F, vitals as above, +discomfort 2/2 to NG Tube, sitting up in bed, pleasant, conversing easily Head: Normocephalic, Atraumatic Eyes: PERRL, conjunctivae normal, anicteric sclerae ENMT: external ear and nose normal, oropharynx normal +NGT Neck: trachea midline, no thyromegaly normal visual inspection Respiratory: normal respiratory effort, lungs clear to auscultation, no wheeze, rales, rhonchi. Normal insp/exp effort, no accessory muscle use Cardiovascular: RRR, no murmur, no edema Vessels: no JVD or carotid bruit Chest: normal inspection of chest Abdomen:+BS x 4, normoactive, soft, NT, no hepatosplenomegaly Musculoskeletal: no cyanosis or clubbing, extremities motor strength 5/5 Skin: no rashes, warm and dry normal turgor Neurologic: PERRL, EOMI, accommodation nl, no face palsy, no dysarthria CN's II-XI intact bilaterally and moves all extremities Psychiatric: A+Ox3, euthymic affect Lymphatic: no cervical or axillary lymphadenopathy : deferred Principal Diagnosis Small bowel obstruction, requiring surgery Discharge Exam Physical Exam: Elderly slim female, sitting up in bed, in no acute distress Constitutional: well developed, well nourished, in no acute distress Eyes: PERRL, conjunctivae normal, anicteric sclerae ENMT: external ear and nose normal, oropharynx normal Neck: trachea midline, no thyromegaly Respiratory: normal respiratory effort; no respiratory distress Auscultation: lungs clear to auscultation bilaterally, no wheezing, rhonchi or crackles Cardiovascular: Rate/Rhythm: regular rate and regular rhythm Heart Sounds: no murmur Gastrointestinal (Abdomen): + Bowel sounds, abdomen not distended, Nontender to palpation, soft; no guarding and abdomen not rigid, surgical scar clean dry intact Musculoskeletal: Moves all extremities spontaneously Neurologic: Currently patient is alert and oriented, answers questions appropriately, speech fluent, no facial asymmetry, moves all extremities; no focal motor deficits, on and off pleasantly confused Discharge Data Allergies Allergy/AdvReac Type Severity Reaction Status Date / Time scopolamine Allergy Unknown JOINT SWELL Verified 04/29/20 09:36 Consultations 04/29/20 12:03 Consult General Surgery Stat 04/29/20 12:05 ED Decision to Admit Stat 04/29/20 13:57 Consult Case Management - Discharge Planning Routine Procedures Performed Operation Date: 05/01/20 07:00 Actual Procedures p Exploratory Laparotomy, with Removal of Inspissated Food Products (Not Applicable) - Nishant Fernandez MD Ordered Studies 04/29/20 10:29 CT abd pelvis IV con only Stat IMPRESSION: 1. Findings consistent with a moderate grade small bowel obstruction with transition point within the right mid abdomen. Nonspecific mild wall thickening at site of obstruction with small bowel feces sign. 2. Loop of small bowel slightly extends into a right inguinal hernia which does not result in the obstruction. 3. Colonic and small bowel diverticulosis without evidence for acute diverticulitis. 04/30/20 10:14 [place] small bowel follow through Routine IMPRESSION: Findings consistent with a partial small bowel obstruction with transition point within the mid jejunum within the right mid abdomen, as shown on prior CT. Decompressed more distal small bowel. Contrast reached the colon. The etiology for the small bowel obstruction is not clear. Hospital Course (1) SBO (small bowel obstruction): This is an 80 yr old F who has a significant PMH of multiple sclerosis, Depression, osteoporosis, Dementia, neurogenic bladder occasional straight cath required who presents to ED 2/2 to N/V and weakness x 3 days. POD #7 /p ex lap, enterotomy removal of retained food products/stool ball by Dr. Fernandez (on 05/01/2020) NGT removed Patient tolerates low fiber diet No complaints of pain stop IVF Appreciate surgery recommendations Patient is having bowel movements and tolerating diet Clinically much improved, plan to discharge to [facility] 19 ordered for placement Patient needs to follow-up with surgery for staple removal next week (2) UTI (urinary tract infection): Culture grew > 100k E. coli and alpha strep continued ceftriaxone day #5 of 5 [place] 'ed antibiotic (3) Leukocytosis: Resolved WBC 14k was on antibiotics for UTI likely in setting of post op state White blood cell count has been decreasing, now normalized, currently 6K (4) Electrolyte abnormality: hyponatremia and hypokalemia, hypomagnesemia, hypophosphatemia Hyponatremia resolved continue to monitor electrolytes given GI loss with NG Replace and monitor Electrolytes should normalize with normal p.o. intake Currently electrolytes normalized, recommend to recheck BMP within 1 week including magnesium and phosphorus levels Anemia -Likely dilutional due to IV fluids, only minimal blood loss during surgery -Recommend to recheck H&H within 1 week as outpatient (5) Abnormal urinalysis: UA with + nitrates, leukocyte esterase, WBC, plus for bacteria but also numerous epithelial May be contaminated specimen. Patient denies symptoms although does have mild history of dementia. No fever or leukocytosis Treated empirically with 1 g Rocephin daily until culture returns culture positive for E. coli and alpha strep Rocephin Day #5 Treatment finished (6) Delirium: pt with intermittent confusion and delirum in evening pt has known MS with cognitive dysfunction and dementia does not appear to be infectious source as she is afebrile, WBC WNL. She was on antibiotic for UTI She has not been given any narcotics. Vitals and labs are stable Delirium seems to be improved. She has dementia though Had occasional delirium in the hospital and required occasional doses of Haldol No more delirium (7) Multiple sclerosis: no acute flare, slowly progressive MS mostly with gait disturbance ataxia to the R with some cognitive impairment follows [facility] neurology (8) Dysthymic disorder: continue prozac when able to tolerate po (9) Osteoporosis: on calcium + vit D supplement as outpt (10) Neurogenic bladder: occassionally self caths prn rosario cath in place (11) DVT prophylaxis: Heparin d/c 2/2 to procedure, SCDs per surgery Disposition: Plan to discharge to [facility] Follow up: PCP Dr. Lewis upon discharge Total Time Total Time Spent Total Time Spent (In Minutes): 40 Total Time Includes: Examination of the Patient, Discharge Planning, Medication Reconciliation and Communication With Other Providers Discharge Plan Discharge Items Patient Disposition: Transfer Inpatient Rehab Fac Reason For Visit: MODERATE SBO Discharge Diagnosis: Small bowel obstruction, requiring surgery Activity: Per Instructions section Non-emergency contact: Primary Care Provider and Surgeon Call non-emergency contact if: you have any medication questions and your symptoms worsen Follow-up/Referrals: Nishant Fernandez MD [Physician] - (Next week for staple removal ([phone])) Yinka Lewis, DO [Primary Care Provider] - Diet: Low Fiber Addtl Attending Provider Instructions: You will need to follow-up with surgery next week for w[place]ka removal, see their instructions below. If needed, you can use Tylenol 1000 mg 3 times a day for pain, max dose 3000 mg a day. Alternatively you can use ibuprofen 600 mg every 6 hours with food. Also recommend to continue on low fiber diet for at least 1 week. Recommend to have your blood work CBC, BMP, magnesium and phosphorus level checked within 1 week. You will also need to follow-up with your primary care provider, recommend within 1 week after leaving [facility]. Addtl Russian History Professor Provider Instructions: Post-Surgical ~Discharge Instructions Activity Recommendations: - lifting limitation: (10 pounds for 6 weeks), - exercise/sex/sports limit: (nonstrenuous for 6 weeks), - driving or machine use limit: (none for 1 week), - Shower/bathe limit: (may shower beginning tomorrow) Diet: - Resume previous diet SPECIAL CARE INSTRUCTIONS: - May shower. - Call the surgeon's office with any questions or concerns - - (ex. temperature higher than 101 degrees F, excessive bleeding or pain). MEDICATIONS: - Resume previous medications unless instructed otherwise by your surgeon. - Ibuprofen 600 mg every 6 hours with food FOLLOW UP VISIT: - If not already scheduled, please call the office to schedule a two week follow-up appointment. Office number Pending Studies at Discharge: No Stand-Alone Forms: My [facility] Skilled Items Patient informed of condition?: Yes DNR: No Discharge Level of Care: Acute rehab Communicable Disease: No Discharge Prognosis: Stable Lines: None Urinary Catheter: Yes Medications and DC Order Prescriptions: Continued multivitamin Tablet 1 tab PO QAM RF: 0 fluoxetine 40 mg capsule 40 mg PO QAM RF: 0 trazodone 50 mg tablet 50 mg PO HS RF: 0 polyethylene glycol 3350 [Miralax] 17 gram Powder In Packet 17 g PO QAM RF: 0 calcium carbonate-vitamin D3 [Calcium 600 + D(3)] 600 mg(1,500mg) -200 unit Tablet 1 tab PO QAM RF: 0 aspirin 81 mg Tablet,Delayed Release (Dr/Ec) 81 mg PO QAM RF: 0 omeprazole magnesium [Prilosec OTC] 20 mg Tablet,Delayed Release (Dr/Ec) 20 mg PO QAM RF: 0 Discontinued acetaminophen-codeine 300-30 mg tablet 1 tab PO Q4H PRN (Reason: Pain) RF: 0 Discharge Orders: Discharge Order (Routine); Ordered 05/08/20 Ordered By: Scottie Vides/Other Patient Handouts: Small Bowel Obstruction Admission Data Admit Date/Time: 04/29/20 12:28 Attending Provider: Scottie Pfeiffer Admit Provider: Gage Weiner Primary Care Provider: Yinka Lewis Other Providers: Nishant Fernandez ; Gage Weiner ; S[facility] Carroll [facility] ; Oscar Braun ; [facility] ; Janel Burns
== END 2020-05-08 13:16 | DRG 345 ==
LOC: ED 08:42 → SUATTDRO 12:28 → 2N 12:28 → 2W 05-06 06:29

== ENCOUNTER 2022-09-09 19:01 | Inpatient (IN) ==
--- NOTE | 2022-09-09 19:20 | Emergency Department Note ---
Impression & Plan Dementia, Acute UTI ADMIT ED Provider Note HPI: The patient is an 82-year-old female with reported dementia, presents emergency department via EMS after family had concerned that the patient was no longer safe to be living alone. Patient arrives with her daughter and son at the bedside, they state that the patient currently lives with her father in an apartment, he is having health issues and also drinks daily. He is unable to fully take care of her in the apartment. Today patient left apartment and when wandering around outside and she was not appropriately clothed, she became lost and was brought back by a stranger to her apartment. Son and daughter at the bedside have concern that the patient needs to be placed in a facility and is no longer safe to be living on her own and therefore brought her to the hospital for further assessment on arrival the patient is in no acute distress, she is able to answer most of my questions appropriately, she does have a history of some unspecified dementia. She is alert on arrival and without focal deficits ROS: -Neuro: History of dementia with increasing confusion -General: Concern for safety living alone *10 point review systems was conducted and is otherwise negative unless stated above *Outpatient medications and allergy history reviewed PE: General: Alert HEENT: Normocephalic, trachea midline Eyes: Extraocular eye movement is intact, no scleral erythema Pulmonary: Clear to auscultation bilaterally, no wheezing Cardio: Regular rate and rhythm GI: Abdomen is soft, nontender : No suprapubic tenderness MSK: No evidence of trauma or malformation of the extremities, no edema Skin: No evidence of rash Neuro: Alert, no focal deficits Psychiatric: Cooperative EKG: Rate: 90 Rhythm: Normal sinus rhythm Intervals: Within normal limits ST changes: No ST elevation Time: 1928 Interventions provided in ED: -IV ceftriaxone CT HEAD: Moderate brain volume loss. Moderate chronic ischemic changes. Sinuses, mastoids and the bones are intact. Impression: No acute findings. Radiologist: Arturo Bobo M.D. Medical Decision Making: Patient presented to the emergency department with some increasing confusion, she had an episode of wandering off today, she lives currently in an apartment with her who drinks alcohol daily and has increasing health issues and has been unable to take care of her very well according to her daughter and son at the bedside. They have concerned that the patient is no longer safe to be living alone and therefore brought her to the emergency department today for placement Case was discussed with case management, patient has not determined appropriate for admission to [facility] facility secondary to underlying dementia and no underlying psychiatric disorder. Patient is unable to sign herself and secondary to underlying dementia. Medical work-up was initiated and lab work is largely reassuring, patient is noted to have likely urinary tract infection, blood cultures were drawn and she was treated with IV ceftriaxone. CT imaging of the head does not show any evidence of any acute intracranial process. I discussed the above findings with the patient and her son and daughter at the bedside, they feel that the patient is not safe to return home, and therefore d id discuss the case with the on-call hospitalist, Dr. Juarez, patient was admitted for further treatment of UTI and for social concerns/placement at a fpc facility with dementia unit. Patient and her family were in agreement the patient was admitted in stable condition. Diagnosis: 1. Dementia 2. Social concerns/safety concern 3. Encounter for placement in a fpc facility 4. Urinary tract infection, acute Disposition: Admission Nishant Pastor DO Emergency Medicine Past Med/Surg History Medical History (Updated 09/09/22 @ 23:00 by Nishant Pastor DO) Dysthymic disorder Multiple sclerosis Osteoporosis Urinary, incontinence, stress female Surgical History History of appendectomy History of back surgery "x5" History of section x 2 History of cholecystectomy History of tonsillectomy History of total hysterectomy Family History Father Stroke Coronary heart disease Mother CHF (congestive heart failure) Brother Metastatic melanoma Sister Lung cancer Social History Smoking Status: Never smoker Tobacco Type: Cigarettes Hx Alcohol Use: Yes Alcohol type: wine Hx Substance Use: No Preferred Language: Yoruba Communication Ability: Effective Beliefs That Will Affect Care: Adventist Adventist Beliefs: Taoism- would like to see a preist marital status: Current Living Situation: Spouse current occupational status: retired Feels Safe at Home: Yes Assistive Devices: Walker Allergies Allergies Allergy/AdvReac Type Severity Reaction Status Date / Time scopolamine Allergy Unknown JOINT SWELL Verified 07/03/20 17:55 Home Meds Home Medications Medication Instructions Recorded Confirmed fluoxetine 40 mg capsule 40 mg PO QAM 04/29/20 09/09/22 multivitamin 1 tab PO QAM 04/29/20 09/09/22 trazodone 50 mg tablet 100 mg PO HS 04/29/20 09/09/22 acetaminophen 300 mg-codeine 30 mg 1 tab PO Q4H PRN Pain 07/03/20 09/09/22 tablet omeprazole 20 mg capsule,delayed 20 mg PO QAM 07/03/20 09/09/22 release Tylenol 500 mg PO DAILY 09/09/22 09/09/22 cartilage 40 mg-collagen II 10 1 tab PO DAILY 09/09/22 09/09/22 mg-boron 5 mg-hyaluronate 3.3 mg tablet (Oscar) docusate sodium 100 mg tablet 100 mg PO DAILY 09/09/22 09/09/22 loratadine 10 mg tablet 10 mg PO DAILY 09/09/22 09/09/22 melatonin 10 mg tablet 10 mg PO HS PRN Sleep 09/09/22 09/09/22 Results & Data (ED) Vital Signs Vital Signs - 24 hr 09/09/22 19:08 09/09/22 22:25 Temperature 36.7 C Temperature Source Oral Pulse Rate 93 H Pulse Rate [Right] 84 Respiratory Rate 16 16 Respiratory Effort / Characteristics Non-Labored Spontaneous Non-Labored Spontaneous Respiratory Depth Normal Normal Blood Pressure 137/69 Blood Pressure [Right Arm] 137/71 Blood Pressure Mean 91 Blood Pressure Mean [Right Arm] 93 Blood Pressure Position Sitting Pulse Oximetry 99 98 Oxygen Delivery Method Room Air Room Air Sepsis Recent Fever Within 48 Hours No Sepsis New/Unexplained Change in Mental Status N/A Sepsis Action Taken by Nursing No Action Required Laboratory Data Result diagrams: 09/09/22 20:33 09/09/22 20:33 Lab Results 09/09/22 09/09/22 09/09/22 Range/Units 19:20 19:20 19:20 WBC (4.8-10.8) K/ul RBC (3.93-5.22) M/uL Hgb (12.0-16.0) g/dl Hct (34.1-44.9) % MCV (80.0-100.0) fL MCH (25.0-34.0) pg MCHC (32.0-36.0) g/dL RDW Std Deviation (36.4-46.3) fL RDW Coeff of Swetha (11.5-14.5) % Plt Count (130-400) K/uL MPV (9.4-12.3) fL Immature Gran % (Auto) % Neut % (Auto) % Lymph % (Auto) % [place] % (Auto) % Eos % (Auto) % Baso % (Auto) % Neut # (Auto) (1.4-6.5) K/uL Lymph # (Auto) (1.2-3.4) K/uL [place] # (Auto) (0.24-0.82) K/uL Eos # (Auto) (0-0.50) K/uL Baso # (Auto) (0-0.2) K/uL Immature Gran # (Auto) (0.00-0.02) K/uL Sodium (136-145) mmol/L Potassium (3.5-5.1) mmol/L Chloride (98-107) mmol/L Carbon Dioxide (21-32) mmol/L Anion Gap (3-11) BUN (6-23) mg/dl Creatinine (0.6-1.2) mg/dl Est Cr Clr Drug Dosing Est GFR ( Amer) ml/min Est GFR (Non-Af Amer) ml/min BUN/Creatinine Ratio (10-20) Glucose (70-99(Fasting)) mg/dl Calcium (8.5-10.1) mg/dl Total Bilirubin (0.2-1.0) mg/dl AST (13-39) U/L ALT (7-52) U/L Alkaline Phosphatase (34-104) U/L Total Protein (6.0-8.3) gm/dl Albumin (3.4-5.0) gm/dl Globulin (2.5-4.0) gm/dl Albumin/Globulin Ratio (0.9-2) TSH (0.300-4.500) uIu/ml Urine Color Yellow Urine Appearance Clear (Clear) Urine pH 7.0 (4.5-7.5) Ur Specific [place] 1.005 (1.000-1.030) Urine Protein Negative (Negative) Urine Glucose (UA) Negative (Negative) Urine Ketones Negative (Negative) Urine Blood Negative (Negative) Urine Nitrite Positive A (Negative) Urine Bilirubin Negative (Negative) Urine Urobilinogen Negative (Negative) Ur Leukocyte Esterase 1+ H (Negative) Urine WBC (Auto) 1-5 (0-5) /hpf Urine RBC (Auto) 0-4 (0-4) /hpf U Hyaline Cast (Auto) 0 (0-5) /lpf U Epithel Cells (Auto) 10-20 H (0-5) /lpf Urine Bacteria (Auto) 3+ H (Negative) Salicylates (3.0-30) mg/dl Urine Opiates Screen Neg (Neg) Ur Methadone, Qual Neg (Neg) Acetaminophen (10-30) ug/ml Urine Barbiturates Neg (Neg) Ur Phencyclidine (PCP) Neg (Neg) U Amphetamin/Meth Scrn Neg (Neg) MDMA (Ecstasy) Screen Neg (Neg) U Benzodiazepines Scrn Neg (Neg) Ur Cocaine Metabolite Neg (Neg) U Marijuana (THC) Screen Neg (Neg) Ethyl Alcohol mg/dL (<10.0) mg/dl SARS-CoV-2, RNA, NAAT NEGATIVE (NEGATIVE) 09/09/22 09/09/22 09/09/22 Range/Units 20:33 20:33 20:33 WBC 5.26 (4.8-10.8) K/ul RBC 4.33 (3.93-5.22) M/uL Hgb 13.1 (12.0-16.0) g/dl Hct 40.0 (34.1-44.9) % MCV 92.4 (80.0-100.0) fL MCH 30.3 (25.0-34.0) pg MCHC 32.8 (32.0-36.0) g/dL RDW Std Deviation 45.6 (36.4-46.3) fL RDW Coeff of Swetha 13.3 (11.5-14.5) % Plt Count 291 (130-400) K/uL MPV 9.4 (9.4-12.3) fL Immature Gran % (Auto) 0.2 % Neut % (Auto) 64.2 % Lymph % (Auto) 28.3 % [place] % (Auto) 5.9 % Eos % (Auto) 1.0 % Baso % (Auto) 0.4 % Neut # (Auto) 3.38 (1.4-6.5) K/uL Lymph # (Auto) 1.49 (1.2-3.4) K/uL [place] # (Auto) 0.31 (0.24-0.82) K/uL Eos # (Auto) 0.05 (0-0.50) K/uL Baso # (Auto) 0.02 (0-0.2) K/uL Immature Gran # (Auto) 0.01 (0.00-0.02) K/uL Sodium 142 (136-145) mmol/L Potassium 3.8 (3.5-5.1) mmol/L Chloride 108 H (98-107) mmol/L Carbon Dioxide 27 (21-32) mmol/L Anion Gap 7 (3-11) BUN 13 (6-23) mg/dl Creatinine 0.77 (0.6-1.2) mg/dl Est Cr Clr Drug Dosing Not Reportable Est GFR ( Amer) 83.3 ml/min Est GFR (Non-Af Amer) 71.9 ml/min BUN/Creatinine Ratio 16.9 (10-20) Glucose 97 (70-99(Fasting)) mg/dl Calcium 9.5 (8.5-10.1) mg/dl Total Bilirubin 0.4 (0.2-1.0) mg/dl AST 19 (13-39) U/L ALT 13 (7-52) U/L Alkaline Phosphatase 63 (34-104) U/L Total Protein 6.9 (6.0-8.3) gm/dl Albumin 4.3 (3.4-5.0) gm/dl Globulin 2.6 (2.5-4.0) gm/dl Albumin/Globulin Ratio 1.7 (0.9-2) TSH 4.290 (0.300-4.500) uIu/ml Urine Color Urine Appearance (Clear) Urine pH (4.5-7.5) Ur Specific [place] (1.000-1.030) Urine Protein (Negative) Urine Glucose (UA) (Negative) Urine Ketones (Negative) Urine Blood (Negative) Urine Nitrite (Negative) Urine Bilirubin (Negative) Urine Urobilinogen (Negative) Ur Leukocyte Esterase (Negative) Urine WBC (Auto) (0-5) /hpf Urine RBC (Auto) (0-4) /hpf U Hyaline Cast (Auto) (0-5) /lpf U Epithel Cells (Auto) (0-5) /lpf Urine Bacteria (Auto) (Negative) Salicylates (3.0-30) mg/dl Urine Opiates Screen (Neg) Ur Methadone, Qual (Neg) Acetaminophen (10-30) ug/ml Urine Barbiturates (Neg) Ur Phencyclidine (PCP) (Neg) U Amphetamin/Meth Scrn (Neg) MDMA (Ecstasy) Screen (Neg) U Benzodiazepines Scrn (Neg) Ur Cocaine Metabolite (Neg) U Marijuana (THC) Screen (Neg) Ethyl Alcohol mg/dL (<10.0) mg/dl SARS-CoV-2, RNA, NAAT (NEGATIVE) 09/09/22 09/09/22 Range/Units 20:33 20:33 WBC (4.8-10.8) K/ul RBC (3.93-5.22) M/uL Hgb (12.0-16.0) g/dl Hct (34.1-44.9) % MCV (80.0-100.0) fL MCH (25.0-34.0) pg MCHC (32.0-36.0) g/dL RDW Std Deviation (36.4-46.3) fL RDW Coeff of Swetha (11.5-14.5) % Plt Count (130-400) K/uL MPV (9.4-12.3) fL Immature Gran % (Auto) % Neut % (Auto) % Lymph % (Auto) % [place] % (Auto) % Eos % (Auto) % Baso % (Auto) % Neut # (Auto) (1.4-6.5) K/uL Lymph # (Auto) (1.2-3.4) K/uL [place] # (Auto) (0.24-0.82) K/uL Eos # (Auto) (0-0.50) K/uL Baso # (Auto) (0-0.2) K/uL Immature Gran # (Auto) (0.00-0.02) K/uL Sodium (136-145) mmol/L Potassium (3.5-5.1) mmol/L Chloride (98-107) mmol/L Carbon Dioxide (21-32) mmol/L Anion Gap (3-11) BUN (6-23) mg/dl Creatinine (0.6-1.2) mg/dl Est Cr Clr Drug Dosing Est GFR ( Amer) ml/min Est GFR (Non-Af Amer) ml/min BUN/Creatinine Ratio (10-20) Glucose (70-99(Fasting)) mg/dl Calcium (8.5-10.1) mg/dl Total Bilirubin (0.2-1.0) mg/dl AST (13-39) U/L ALT (7-52) U/L Alkaline Phosphatase (34-104) U/L Total Protein (6.0-8.3) gm/dl Albumin (3.4-5.0) gm/dl Globulin (2.5-4.0) gm/dl Albumin/Globulin Ratio (0.9-2) TSH (0.300-4.500) uIu/ml Urine Color Urine Appearance (Clear) Urine pH (4.5-7.5) Ur Specific [place] (1.000-1.030) Urine Protein (Negative) Urine Glucose (UA) (Negative) Urine Ketones (Negative) Urine Blood (Negative) Urine Nitrite (Negative) Urine Bilirubin (Negative) Urine Urobilinogen (Negative) Ur Leukocyte Esterase (Negative) Urine WBC (Auto) (0-5) /hpf Urine RBC (Auto) (0-4) /hpf U Hyaline Cast (Auto) (0-5) /lpf U Epithel Cells (Auto) (0-5) /lpf Urine Bacteria (Auto) (Negative) Salicylates < 3.0 L (3.0-30) mg/dl Urine Opiates Screen (Neg) Ur Methadone, Qual (Neg) Acetaminophen < 3 L (10-30) ug/ml Urine Barbiturates (Neg) Ur Phencyclidine (PCP) (Neg) U Amphetamin/Meth Scrn (Neg) MDMA (Ecstasy) Screen (Neg) U Benzodiazepines Scrn (Neg) Ur Cocaine Metabolite (Neg) U Marijuana (THC) Screen (Neg) Ethyl Alcohol mg/dL < 10.0 (<10.0) mg/dl SARS-CoV-2, RNA, NAAT (NEGATIVE) Administered Medications Discontinued Medications Ceftriaxone Sodium (Rocephin) 1,000 mg in 50 mls @ 100 mls/hr IV NOW STA Stop: 09/09/22 22:11 Last Infusion: 09/09/22 22:54 Dose: 0 mls/hr Documented By: Admin: 09/09/22 22:22 Dose: 100 mls/hr Documented By: ESTEFANY Discharge Plan Visit Data Chief Complaint: Mental Health Evaluation Stated Complaint: MENTAL HEALTH EVAL ED Provider: Nishant Pastor Discharge Problem: Dementia, Acute UTI Forms Stand Alone Forms: [facility], Suicide Prevention Resources Prescriptions Prescriptions: No Action multivitamin Tablet 1 tab PO QAM fluoxetine 40 mg capsule 40 mg PO QAM trazodone 50 mg tablet 100 mg PO HS acetaminophen-codeine 300-30 mg tablet 1 tab PO Q4H PRN (Reason: Pain) omeprazole 20 mg capsule,delayed release(DR/EC) 20 mg PO QAM Tylenol 500 MG tablet 500 mg PO DAILY docusate sodium 100 mg Tablet 100 mg PO DAILY loratadine 10 mg tablet 10 mg PO DAILY melatonin 10 mg Tablet 10 mg PO HS PRN (Reason: Sleep) [facility] Health 40-10-5-3.3 mg Tablet 1 tab PO DAILY Referrals Referrals: Yinka Lewis DO [Primary Care Provider] - : Dementia Qualifiers: Dementia type: unspecified type Dementia severity: moderate Dementia behavioral or psychological symptom: with other behavioral disturbance Qualified Code(s): F03.B18 - Unspecified dementia, moderate, with other behavioral disturbance
[2022-09-09 20:15] LABS: Appearance Urine Clear (Clear); Bacteria Urine Automated 3+ (Negative); Bilirubin Urine Negative (Negative); Blood Urine Negative (Negative); Cast Urine Automated 0 /lpf (0-5); Color Urine Yellow; Glucose Urine UA Negative (Negative); Ketones Urine Negative (Negative); Leukocyte Esterase Urine 1+ (Negative); Nitrite Urine Positive (Negative); Protein Urine Negative (Negative); RBC Urine Automated 0-4 /hpf (0-4); Specific Gravity Urine 1.005 (1.000-1.030); Urobilinogen Urine Negative (Negative)
[2022-09-09 20:26] LABS: Amphetamines+Metham, Urine Neg (Neg); Barbiturates, Urine Neg (Neg); Benzodiazepine, Urine Neg (Neg); Cocaine, Urine Neg (Neg); MDMA (Ecstacy), Urine Neg (Neg); Methadone, Urine Neg (Neg); Opiate, Urine Neg (Neg); Phencyclidine, Urine Neg (Neg)
[2022-09-09 20:54] LABS: Basophils # (auto) 0.02 K/uL (0-0.2); Basophils % (auto) 0.4 %; Eosinophils # (auto) 0.05 K/uL (0-0.50); Hemoglobin 13.1 g/dl (12.0-16.0); Immature Granulocytes # (auto) 0.01 K/uL (0.00-0.02); Immature Granulocytes % (auto) 0.2 %; Lymphocytes # (auto) 1.49 K/uL (1.2-3.4); Lymphocytes % (auto) 28.3 %; Mean Corpuscular Hemoglobin 30.3 pg (25.0-34.0); Mean Corpuscular Hgb Conc 32.8 g/dL (32.0-36.0); Mean Corpuscular Volume 92.4 fL (80.0-100.0); Mean Platelet Volume 9.4 fL (9.4-12.3); Monocytes # (auto) 0.31 K/uL (0.24-0.82); Monocytes % (auto) 5.9 %; Neutrophils # (auto) 3.38 K/uL (1.4-6.5); Neutrophils % (auto) 64.2 %; Platelet Count 291 K/uL (130-400); RDW Coefficient of Variation 13.3 % (11.5-14.5); RDW Standard Deviation 45.6 fL (36.4-46.3); Red Blood Count 4.33 M/uL (3.93-5.22); White Blood Count 5.26 K/ul (4.8-10.8)
[2022-09-09 21:15] LABS: Acetaminophen < 3 ug/ml (10-30); Alanine Aminotransferase 13 U/L (7-52); Albumin Globulin Ratio 1.7 (0.9-2); Albumin Level 4.3 gm/dl (3.4-5.0); Alkaline Phosphatase 63 U/L (34-104); Anion Gap 7 (3-11); Aspartate Aminotransferase 19 U/L (13-39); BUN Creatinine Ratio 16.9 (10-20); Bilirubin,Total 0.4 mg/dl (0.2-1.0); Blood Urea Nitrogen 13 mg/dl (6-23); Calcium 9.5 mg/dl (8.5-10.1); Carbon Dioxide 27 mmol/L (21-32); Chloride 108 mmol/L (98-107); Est GFR (African American) 83.3 ml/min; Est GFR (Non-African American) 71.9 ml/min; Globulin 2.6 gm/dl (2.5-4.0); Glucose 97 mg/dl (70-99(Fasting)); Potassium 3.8 mmol/L (3.5-5.1); Salicylate < 3.0 mg/dl (3.0-30); Sodium 142 mmol/L (136-145); Total Protein 6.9 gm/dl (6.0-8.3)
[2022-09-09] MEDS ORDERED: cefTRIAXone SODIUM 1,000 MG/50 ML BAG IV STA (21:42)
[2022-09-09] MEDS ORDERED: LACTATED RINGER'S 1,000 ML IV STA (21:49)
--- NOTE | 2022-09-10 01:52 | History & Physical Report ---
Date of Service September 10, 2022 Assessment & Plan (1) Encephalopathy: Plan: Secondary to complicated UTI, recurrent problem hx stress incontinence/neurogenic bladder as per records hx dementia No sepsis for now hx multiple sclerosis, stable disease off medications hx anxiety/mood disorder Functional disability past tobacco abuse GMF Urine CS, Ceftriaxone PT OT eval Social service re: discharge planning, placement DVT prophylaxis. Lovenox subcu Full code as per daughter, Ms. Joana Solares. She requests updates from providers through [phone]. Text document was generated using [employer] voice recognition software. It may contain grammatical or spelling errors. Kindly contact undersigned for clarification of any documentation item in question. History of Present Illness Chief Complaint: Family wanted me to come as per patient. Patient wandering outside home as per family. Primary Care Provider: Yinka Lewis, History obtained from patient, family, and records. Patient is a fair historian. Medical history significant for dementia, multiple sclerosis, anxiety/mood disorder, stress incontinence, recurrent UTIs, neurogenic bladder, anxiety, past tobacco abuse. Last confinement April 2020 for small bowel obstruction status post surgery. Family has had increasing concerns about patient's safety at home the last few months. Patient having trouble caring for patient secondary to medical issues. Family relayed concerns to PCP on outpatient visit last month. Outpatient case management was to assist family in dementia unit placement as per outpatient notes. Patient wandered outside home today. Patient brought by family to ER for evaluation. Patient denies headache, chest pain, shortness of breath, abdominal pain, dysuria symptoms. IV Ceftriaxone administered at the ER for possible UTI. MEDICAL HISTORY: As above. SURGERIES: section, Tonsillectomy, Ovarian cyst drainage, Cystoscopy, Hysterectomy, Appendectomy, ex lap/SBO release, back surgery, cholecystectomy. FAMILY HISTORY: Lung cancer, melanoma, heart disease, stroke PERSONAL SOCIAL HISTORY: Past tobacco abuse. 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 Lives with . Allergies Allergy/AdvReac Type Severity Reaction Status Date / Time scopolamine Allergy Unknown JOINT SWELL Verified 07/03/20 17:55 Home Medications Medication Instructions Recorded Confirmed Type fluoxetine 40 mg capsule 40 mg PO QAM 04/29/20 09/09/22 History multivitamin 1 tab PO QAM 04/29/20 09/09/22 History trazodone 50 mg tablet 100 mg PO HS 04/29/20 09/09/22 History acetaminophen 300 mg-codeine 30 mg 1 tab PO Q4H PRN Pain 07/03/20 09/09/22 History tablet omeprazole 20 mg capsule,delayed 20 mg PO QAM 07/03/20 09/09/22 History release Tylenol 500 mg PO DAILY 09/09/22 09/09/22 History cartilage 40 mg-collagen II 10 1 tab PO DAILY 09/09/22 09/09/22 History mg-boron 5 mg-hyaluronate 3.3 mg tablet (Cinegif) docusate sodium 100 mg tablet 100 mg PO DAILY 09/09/22 09/09/22 History loratadine 10 mg tablet 10 mg PO DAILY 09/09/22 09/09/22 History melatonin 10 mg tablet 10 mg PO HS PRN Sleep 09/09/22 09/09/22 History Past Med/Surg History Medical History (Updated 09/10/22 @ 07:33 by Danny Erazo MD) Dysthymic disorder Multiple sclerosis Osteoporosis Urinary, incontinence, stress female Surgical History History of appendectomy History of back surgery "x5" History of section x 2 History of cholecystectomy History of tonsillectomy History of total hysterectomy Family History Father Stroke Coronary heart disease Mother CHF (congestive heart failure) Brother Metastatic melanoma Sister Lung cancer Social History Smoking Status: Former smoker Tobacco Type: Cigarettes Second Hand Exposure: No; Do You Dip or Chew Tobacco: No; Hx Alcohol Use: No Hx Substance Use: No Preferred Language: Martiniquais Communication Ability: Effective Acquisitions Librarian Required: No Beliefs That Will Affect Care: None and Cheondoism Cheondoism Beliefs: Yazdanism marital status: Current Living Situation: Spouse current occupational status: retired Other Information That Helps Us Care for You: No Feels Safe at Home: No Is there a partner from a previous relationship who is making you feel unsafe now?: No Any Concerns about Your Family Situation: Yes Would You Like to Speak to Someone About Your Situation: Yes Safety Concerns: Afraid for Self and Afraid for Others in Home Assistive Devices: Cane, Glasses and Walker Review of Systems Review of Systems: As per HPI, all other systems reviewed and negative Physical Exam Physical Exam: GENERAL: Oriented to month and year, comfortable, anxious, no respiratory distress SKIN: Normal color, warm HEENT: [place] palpebral conjunctivae, no ptosis, dry buccal mucosa NECK : Supple, no tenderness CHEST : CTA, no tenderness HEART : RRR, no obvious murmurs ABDOMEN: Some distention, nontender EXTREMITIES : No LE swelling/tenderness, no other conspicuous deformities noted NEUROLOGIC : Coherent, oriented to month and year, no facial asymmetry, and stance not assessed Results & Data Results & Data ([facility]) Vital Signs (Past 12 Hours) Vital Signs Temp Pulse Pulse Resp BP BP Pulse Ox 09/10/22 00:14 78 20 137/66 98 09/09/22 22:25 84 16 137/71 98 09/09/22 19:08 36.7 C 93 H 16 137/69 99 O2 Del Method 09/10/22 00:14 09/09/22 22:25 Room Air 09/09/22 19:08 Room Air Laboratory Results Laboratory Results WBC 5.26 K/ul (4.8-10.8) 09/09/22 20:33 RBC 4.33 M/uL (3.93-5.22) 09/09/22 20:33 Hgb 13.1 g/dl (12.0-16.0) 09/09/22 20:33 Hct 40.0 % (34.1-44.9) 09/09/22 20:33 MCV 92.4 fL (80.0-100.0) 09/09/22 20:33 MCH 30.3 pg (25.0-34.0) 09/09/22 20:33 MCHC 32.8 g/dL (32.0-36.0) 09/09/22 20:33 RDW Std Deviation 45.6 fL (36.4-46.3) 09/09/22 20:33 RDW Coeff of Swetha 13.3 % (11.5-14.5) 09/09/22 20:33 Plt Count 291 K/uL (130-400) 09/09/22 20:33 MPV 9.4 fL (9.4-12.3) 09/09/22 20:33 Immature Gran % (Auto) 0.2 % 09/09/22: Neut % (Auto) 64.2 % 09/09/22: Lymph % (Auto) 28.3 % 09/09/22: [place] % (Auto) 5.9 % 09/09/22: Eos % (Auto) 1.0 % 09/09/22: Baso % (Auto) 0.4 % 09/09/22: Neut # (Auto) 3.38 K/uL (1.4-6.5) 09/09/22: Lymph # (Auto) 1.49 K/uL (1.2-3.4) 09/09/22: [place] # (Auto) 0.31 K/uL (0.24-0.82) 09/09/22: Eos # (Auto) 0.05 K/uL (0-0.50) 09/09/22: Baso # (Auto) 0.02 K/uL (0-0.2) 09/09/22: Immature Gran # (Auto) 0.01 K/uL (0.00-0.02) 09/09/22: Sodium 142 mmol/L (136-145) 09/09/22: Potassium 3.8 mmol/L (3.5-5.1) 09/09/22: Chloride 108 mmol/L (98-107) H 09/09/22: Carbon Dioxide 27 mmol/L (21-32) 09/09/22: Anion Gap 7 (3-11) 09/09/22: BUN 13 mg/dl (6-23) 09/09/22: Creatinine 0.77 mg/dl (0.6-1.2) 09/09/22: Est Cr Clr Drug Dosing Not Reportable 09/09/22: Est GFR ( Amer) 83.3 ml/min 09/09/22: Est GFR (Non-Af Amer) 71.9 ml/min 09/09/22 20: BUN/Creatinine Ratio 16.9 (10-20) 09/09/22: Glucose 97 mg/dl (70-99(Fasting)) 09/09/22: Calcium 9.5 mg/dl (8.5-10.1) 09/09/22 20: Total Bilirubin 0.4 mg/dl (0.2-1.0) 09/09/22 20: AST 19 U/L (13-39) 09/09/22 20:33 ALT 13 U/L (7-52) 09/09/22 20: Alkaline Phosphatase 63 U/L (34-104) 09/09/22: Total Protein 6.9 gm/dl (6.0-8.3) 09/09/22: Albumin 4.3 gm/dl (3.4-5.0) 09/09/22: Globulin 2.6 gm/dl (2.5-4.0) 09/09/22: Albumin/Globulin Ratio 1.7 (0.9-2) 09/09/22: TSH 4.290 uIu/ml (0.300-4.500) 09/09/22: Urine Color Yellow 09/09/22: Urine Appearance Clear (Clear) 09/09/22: Urine pH 7.0 (4.5-7.5) 09/09/22: Ur Specific [place] 1.005 (1.000-1.030) 09/09/22: Urine Protein Negative (Negative) 09/09/22 19: Urine Glucose (UA) Negative (Negative) 09/09/22 19: Urine Ketones Negative (Negative) 09/09/22: Urine Blood Negative (Negative) 09/09/22: Urine Nitrite Positive (Negative) A 09/09/22: Urine Bilirubin Negative (Negative) 09/09/22: Urine Urobilinogen Negative (Negative) 09/09/22: Ur Leukocyte Esterase 1+ (Negative) H 09/09/22 19:20 Urine WBC (Auto) 1-5 /hpf (0-5) 09/09/22 19:20 Urine RBC (Auto) 0-4 /hpf (0-4) 09/09/22 19:20 U Hyaline Cast (Auto) 0 /lpf (0-5) 09/09/22 19:20 U Epithel Cells (Auto) 10-20 /lpf (0-5) H 09/09/22 19:20 Urine Bacteria (Auto) 3+ (Negative) H 09/09/22 19:20 Salicylates < 3.0 mg/dl (3.0-30) L 09/09/22 20:33 Urine Opiates Screen Neg (Neg) 09/09/22 19:20 Ur Methadone, Qual Neg (Neg) 09/09/22 19:20 Acetaminophen < 3 ug/ml (10-30) L 09/09/22 20:33 Urine Barbiturates Neg (Neg) 09/09/22 19:20 Ur Phencyclidine (PCP) Neg (Neg) 09/09/22 19:20 U Amphetamin/Meth Scrn Neg (Neg) 09/09/22 19:20 MDMA (Ecstasy) Screen Neg (Neg) 09/09/22 19:20 U Benzodiazepines Scrn Neg (Neg) 09/09/22 19:20 Ur Cocaine Metabolite Neg (Neg) 09/09/22 19:20 U Marijuana (THC) Screen Neg (Neg) 09/09/22 19:20 Ethyl Alcohol mg/dL < 10.0 mg/dl (<10.0) 09/09/22 20:33 SARS-CoV-2, RNA, NAAT NEGATIVE (NEGATIVE) 09/09/22 19:[address] head initial read: Moderate brain volume loss. Moderate chronic ischemic changes. Sinuses, mastoids and the bones are intact. Impression:No acute finding. EKG as per my interpretation : Rate 90, NSR, LAD, LAFB, no ischemia
[2022-09-10] MEDS ORDERED: HALOPERIDOL LACTATE 5 MG/ML 1 ML VIAL IM PRN (02:24)
[2022-09-10] MEDS ORDERED: ACETAMINOPHEN 325 MG TAB PO PRN (05:16)
[2022-09-10] MEDS ORDERED: MELATONIN 3 MG TAB PO PRN (05:29)
--- NOTE | 2022-09-10 06:47 | CT Scan Report ---
CT head/brain wo con CLINICAL HISTORY: 82 years-old Female with AMS. Acutely altered mental status TECHNIQUE: Multiple axial CT images of the head were obtained without contrast. A dose lowering tech nique was utilized adhering to the principles of ALARA. CT DOSE: 537.48 mGy.cm COMPARISON: Head CT 07/20/2014 FINDINGS: No acute intracranial hemorrhage, midline shift, intracranial mass, hydrocephalus, territorial ischem ia or abnormal extra-axial collection. Developmental incomplete bony fusion involves the posterior ar ch of C1. Involutional changes with ex vacuo ventriculomegaly. White matter hypodensities suggest chr onic microvascular ischemic disease. The calvarium is intact. Small left mastoid effusion. The right mastoid air cells and paranasal sinu ses are clear. Prior bilateral lens repair. IMPRESSION: No acute intracranial abnormality. ACT 112: Negative or not required by law. The above report was generated using voice recognition software. It may contain grammatical, syntax o r spelling errors. Electronically signed by: Berry Pineda M.D. 09/10/2022 6:45 AM
--- NOTE | 2022-09-10 09:03 | Electrocardiogram Report ---
Test Reason : Blood Pressure : / mmHG Vent. Rate : 090 BPM Atrial Rate : 090 BPM P-R Int : 172 ms QRS Dur : 078 ms QT Int : 358 ms P-R-T Axes : 072 -62 056 degrees QTc Int : 437 ms Poor data quality, interpretation may be adversely affected Normal sinus rhythm with occasional Premature atrial complexes Left anterior fascicular block Abnormal ECG When compared with ECG of 30-APR-2020 07:35, No significant change was found Confirmed by Mark Vazquez ([id number]) on 09/10/2022 9:02:51 AM Referred By: REFERRED SELF Confirmed By:Mark Vazquez
[2022-09-10] MEDS: ENOXAPARIN INJ 30 MG/0.3 ML SYR SQ SCH (10:08)
[2022-09-10] MEDS: LORATADINE 10 MG TAB PO SCH (10:08)
[2022-09-10] MEDS: DOCUSATE SODIUM 100 MG CAP PO SCH (10:08)
[2022-09-10] MEDS: MULTIVITAMIN TAB PO SCH (10:08)
[2022-09-10] MEDS: FLUoxetine HCL 20 MG CAP PO SCH (10:08)
[2022-09-10] MEDS: PANTOprazole 40 MG TAB PO SCH (10:09)
--- NOTE | 2022-09-10 16:36 | Hospitalist Progress Note ---
Date of Service September 10, 2022 Assessment & Plan (1) Encephalopathy: Plan: Metabolic encephalopathy due to UTI H/O Recurrent UTI H/O Stress incontinence/neurogenic bladder -CT Head:No acute intracranial abnormality. Urine Cx: Gram-negative midline Blood cultures pending Continue Rocephin Dementia As per records Delirium precautions H/O Multiple sclerosis Currently not on medications H/O Anxiety/mood disorder Functional disability past tobacco abuse Continue fluoxetine Will need Placement DVT Px: Lovenox SQ Code Status Full code Admission and Anticipated Discharge Date Admission Date: September 10, 2022 Subjective Patient is seen and examined at bedside Oriented x3 during my encounter Denies any chest pain, shortness of breath, dizziness, nausea, abdominal pain, dysuria, hematuria Urine culture growing gram-negative bacilli Review of Systems Review of Systems: All systems reviewed & are unremarkable except as noted in Subjective Physical Exam Physical Exam: Physical Exam: Vitals signs as noted above General Appearance:Thin, no apparent distress Head: normocephalic, Atraumatic Eyes: normal inspection, EOMI Neck: supple, Trachea midline Respiratory/Chest: Normal breath sounds, CTA, No accessory muscle use Cardiovascular: S1, S2, No murmur Abdomen/GI:Soft, Non tender, Bowel sounds present Extremities/Musculoskeletal:normal inspection, no edema Neurologic/Psych:AAOX3, grossly no focal neurological deficits Skin: normal color, warm Results & Data Results & Data ([facility]) Vital Signs (Past 12 Hours) Vital Signs Temp Pulse Resp BP Pulse Ox O2 Del Method 09/10/22 15:28 36.7 C 83 18 108/72 99 Room Air 09/10/22 07:42 36.8 C 71 18 142/55 H 97 Room Air 09/10/22 05:10 36.5 C 74 18 146/74 H 97 Room Air Laboratory Results Short CBC 09/09/22 Range/Units 20:33 WBC 5.26 (4.8-10.8) K/ul Hgb 13.1 (12.0-16.0) g/dl Hct 40.0 (34.1-44.9) % Plt Count 291 (130-400) K/uL BMP 09/09/22 20:33 Sodium 142 Potassium 3.8 Chloride 108 H Carbon Dioxide 27 BUN 13 Creatinine 0.77 Glucose 97 Calcium 9.5 Liver Function 09/09/22 Range/Units 20:33 Total Bilirubin 0.4 (0.2-1.0) mg/dl AST 19 (13-39) U/L ALT 13 (7-52) U/L Alkaline Phosphatase 63 (34-104) U/L Albumin 4.3 (3.4-5.0) gm/dl Urine 09/09/22 Range/Units 19:20 Urine Color Yellow Urine Appearance Clear (Clear) Urine pH 7.0 (4.5-7.5) Ur Specific [place] 1.005 (1.000-1.030) Urine Protein Negative (Negative) Urine Glucose (UA) Negative (Negative)
[2022-09-10] MEDS: traZODone HCL 100 MG TAB PO SCH (20:37)
[2022-09-10] MEDS: cefTRIAXone SODIUM 1,000 MG in DEXTROSE 5% 50 ML IV SCH (21:12)
[2022-09-11 06:41] LABS: Basophils # (auto) 0.03 K/uL (0-0.2); Basophils % (auto) 0.7 %; Eosinophils # (auto) 0.11 K/uL (0-0.50); Eosinophils % (auto) 2.7 %; Hematocrit (blood only) 37.5 % (34.1-44.9); Hemoglobin 12.4 g/dl (12.0-16.0); Immature Granulocytes # (auto) 0.01 K/uL (0.00-0.02); Immature Granulocytes % (auto) 0.2 %; Lymphocytes # (auto) 1.64 K/uL (1.2-3.4); Lymphocytes % (auto) 40.4 %; Mean Corpuscular Hemoglobin 30.5 pg (25.0-34.0); Mean Corpuscular Hgb Conc 33.1 g/dL (32.0-36.0); Mean Corpuscular Volume 92.4 fL (80.0-100.0); Mean Platelet Volume 9.7 fL (9.4-12.3); Monocytes # (auto) 0.36 K/uL (0.24-0.82); Monocytes % (auto) 8.9 %; Neutrophils # (auto) 1.91 K/uL (1.4-6.5); Neutrophils % (auto) 47.1 %; Platelet Count 259 K/uL (130-400); RDW Coefficient of Variation 13.5 % (11.5-14.5); RDW Standard Deviation 46.4 fL (36.4-46.3); Red Blood Count 4.06 M/uL (3.93-5.22); White Blood Count 4.06 K/ul (4.8-10.8)
[2022-09-11 07:22] LABS: BUN Creatinine Ratio 16.5 (10-20); Calcium 8.9 mg/dl (8.5-10.1); Creatinine Clr Calc Pharmacy 32.1 ml/min; Est GFR (Non-African American) 54.4 ml/min; Magnesium 2.2 mg/dl (1.7-2.4); Potassium 4.1 mmol/L (3.5-5.1)
[2022-09-11] MEDS: FLUoxetine HCL 20 MG CAP PO SCH (10:05)
[2022-09-11] MEDS: DOCUSATE SODIUM 100 MG CAP PO SCH (10:05)
[2022-09-11] MEDS: MULTIVITAMIN TAB PO SCH (10:06)
[2022-09-11] MEDS: ENOXAPARIN INJ 30 MG/0.3 ML SYR SQ SCH (10:06)
[2022-09-11] MEDS: PANTOprazole 40 MG TAB PO SCH (10:06)
[2022-09-11] MEDS: LORATADINE 10 MG TAB PO SCH (10:06)
[2022-09-11] MEDS ORDERED: SODIUM CHLORIDE 0.9% 1000ML 1,000 ML IV ONE (10:18)
--- NOTE | 2022-09-11 16:53 | Hospitalist Progress Note ---
Date of Service September 11, 2022 Assessment & Plan (1) Encephalopathy: Plan: Metabolic encephalopathy due to UTI H/O Recurrent UTI H/O Stress incontinence/neurogenic bladder -CT Head:No acute intracranial abnormality. Urine Cx: growing Klebsiella Blood cultures: No growth Continue Rocephin BP relatively low, continue IV fluids Dementia As per records Delirium precautions H/O Multiple sclerosis Currently not on medications H/O Anxiety/mood disorder Functional disability past tobacco abuse Continue fluoxetine Will need Placement DVT Px: Lovenox SQ Code Status Full code Admission and Anticipated Discharge Date Admission Date: September 10, 2022 Subjective Patient is seen and examined at bedside Lying down comfortably during my encounter States having poor sleep overnight Blood pressure low, asymptomatic today Denies any chest pain, dyspnea, dizziness, nausea, abdominal pain, dysuria, h ematuria Urine culture growing Klebsiella Review of Systems Review of Systems: All systems reviewed & are unremarkable except as noted in Subjective Physical Exam Physical Exam: Physical Exam: Vitals signs as noted above General Appearance:Thin, no apparent distress Head: normocephalic, Atraumatic Eyes: normal inspection, EOMI Neck: supple, Trachea midline Respiratory/Chest: Normal breath sounds, CTA, No accessory muscle use Cardiovascular: S1, S2, No murmur Abdomen/GI:Soft, Non tender, Bowel sounds present Extremities/Musculoskeletal:normal inspection, no edema Neurologic/Psych:AAOX3, grossly no focal neurological deficits Skin: normal color, warm Results & Data Results & Data ([facility]) Vital Signs (Past 12 Hours) Vital Signs Temp Pulse Resp BP Pulse Ox O2 Del Method 09/11/22 15:48 36.5 C 78 18 93/53 L 95 Room Air Laboratory Results Short CBC 09/11/22 Range/Units 05:51 WBC 4.06 L (4.8-10.8) K/ul Hgb 12.4 (12.0-16.0) g/dl Hct 37.5 (34.1-44.9) % Plt Count 259 (130-400) K/uL BMP 09/11/22 05:51 Sodium 142 Potassium 4.1 Chloride 111 H Carbon Dioxide 24 BUN 16 Creatinine 0.97 Glucose 101 H Calcium 8.9
[2022-09-11] MEDS: traZODone HCL 100 MG TAB PO SCH (20:30)
[2022-09-11] MEDS: cefTRIAXone SODIUM 1,000 MG in DEXTROSE 5% 50 ML IV SCH (20:30)
[2022-09-12] MEDS: FLUTICASONE PROPIONATE NA SPR 16 GM BTL PRN (00:53)
[2022-09-12] MEDS: DOCUSATE SODIUM 100 MG CAP PO SCH ×2 (10:19→20:45)
[2022-09-12] MEDS: FLUoxetine HCL 20 MG CAP PO SCH (10:19)
[2022-09-12] MEDS: MULTIVITAMIN TAB PO SCH (10:20)
[2022-09-12] MEDS: LORATADINE 10 MG TAB PO SCH (10:20)
[2022-09-12] MEDS: PANTOprazole 40 MG TAB PO SCH (10:20)
[2022-09-12] MEDS: ENOXAPARIN INJ 30 MG/0.3 ML SYR SQ SCH (10:20)
[2022-09-12] MEDS: POLYETHYLENE (MIRALAX) 17 GM PACK PO SCH (12:40)
--- NOTE | 2022-09-12 17:10 | Hospitalist Progress Note ---
Date of Service September 12, 2022 Assessment & Plan (1) Encephalopathy: Plan: Metabolic encephalopathy due to UTI H/O Recurrent UTI H/O Stress incontinence/neurogenic bladder -CT Head:No acute intracranial abnormality. Urine Cx: growing Klebsiella Blood cultures: No growth Continue Rocephin Constipation Continue bowel regimen Dementia As per records Delirium precautions H/O Multiple sclerosis Currently not on medications H/O Anxiety/mood disorder Functional disability past tobacco abuse Continue fluoxetine Will need Placement DVT Px: Lovenox SQ Code Status Full code Admission and Anticipated Discharge Date Admission Date: September 10, 2022 Subjective Patient is seen and examined at bedside Has constipation Denies any chest pain, dyspnea, dizziness, nausea, abdominal pain, dysuria, hematuria No other complaints Review of Systems Review of Systems: All systems reviewed & are unremarkable except as noted in Subjective Physical Exam Physical Exam: Physical Exam: Vitals signs as noted above General Appearance:Thin, no apparent distress Head: normocephalic, Atraumatic Eyes: normal inspection, EOMI Neck: supple, Trachea midline Respiratory/Chest: Normal breath sounds, CTA, No accessory muscle use Cardiovascular: S1, S2, No murmur Abdomen/GI:Soft, Non tender, Bowel sounds present Extremities/Musculoskeletal:normal inspection, no edema Neurologic/Psych:AAOX3, grossly no focal neurological deficits Skin: normal color, warm Results & Data Results & Data ([facility]) Vital Signs (Past 12 Hours) Vital Signs Temp Pulse Resp BP Pulse Ox O2 Del Method 09/12/22 15:21 36.6 C 82 18 97/61 L 96 Room Air 09/12/22 09:14 36.3 C L 82 18 119/64 96 Room Air
[2022-09-12] MEDS: traZODone HCL 100 MG TAB PO SCH (20:45)
[2022-09-12] MEDS: cefTRIAXone SODIUM 1,000 MG in DEXTROSE 5% 50 ML IV SCH (20:45)
[2022-09-13] MEDS: FLUoxetine HCL 20 MG CAP PO SCH (08:26)
[2022-09-13] MEDS: MULTIVITAMIN TAB PO SCH (08:27)
[2022-09-13] MEDS: LORATADINE 10 MG TAB PO SCH (08:27)
[2022-09-13] MEDS: PANTOprazole 40 MG TAB PO SCH (08:27)
[2022-09-13] MEDS: ENOXAPARIN INJ 30 MG/0.3 ML SYR SQ SCH (08:28)
[2022-09-13] MEDS: DOCUSATE SODIUM 100 MG CAP PO SCH ×2 (08:28→20:33)
[2022-09-13] MEDS: POLYETHYLENE (MIRALAX) 17 GM PACK PO SCH ×2 (08:29→20:33)
[2022-09-13] MEDS ORDERED: bisacodyL 10 MG SUPP PR PRN (13:08)
[2022-09-13] MEDS: SENNA 8.6 MG TAB PO SCH (14:45)
--- NOTE | 2022-09-13 16:28 | Hospitalist Progress Note ---
Date of Service September 13, 2022 Assessment & Plan (1) Encephalopathy: Plan: Metabolic encephalopathy due to UTI H/O Recurrent UTI H/O Stress incontinence/neurogenic bladder -CT Head:No acute intracranial abnormality. Urine Cx: growing Klebsiella Blood cultures: No growth Continue Rocephin while hospitalized to complete the course Constipation Continue bowel regimen Check KUB Dementia As per records Delirium precautions H/O Multiple sclerosis Currently not on medications Adjustment disorder H/O Anxiety/mood disorder Functional disability past tobacco abuse Continue fluoxetine Psychiatry consulted for Input DVT Px: Lovenox SQ Code Status Full code Admission and Anticipated Discharge Date Admission Date: September 10, 2022 Subjective Patient is seen and examined at bedside Still has constipation Denies any chest pain, dyspnea, dizziness, nausea, abdominal pain, dysuria, hematuria No other complaints Review of Systems Review of Systems: All systems reviewed & are unremarkable except as noted in Subjective Physical Exam Physical Exam: Physical Exam: Vitals signs as noted above General Appearance:Thin, no apparent distress Head: normocephalic, Atraumatic Eyes: normal inspection, EOMI Neck: supple, Trachea midline Respiratory/Chest: Normal breath sounds, CTA, No accessory muscle use Cardiovascular: S1, S2, No murmur Abdomen/GI:Soft, Non tender, Bowel sounds present Extremities/Musculoskeletal:normal inspection, no edema Neurologic/Psych:AAOX3, grossly no focal neurological deficits Skin: normal color, warm Results & Data Results & Data ([facility]) Vital Signs (Past 12 Hours) Vital Signs Temp Pulse Resp BP Pulse Ox O2 Del Method 09/13/22 14:50 36.3 C L 82 16 131/67 97 Room Air 09/13/22 07:55 Room Air 09/13/22 07:08 36.5 C 71 16 128/78 96 Room Air
[2022-09-13] MEDS: traZODone HCL 100 MG TAB PO SCH (20:33)
[2022-09-13] MEDS: cefTRIAXone SODIUM 1,000 MG in DEXTROSE 5% 50 ML IV SCH (21:36)
[2022-09-14] MEDS: FLUTICASONE PROPIONATE NA SPR 16 GM BTL PRN (08:58)
[2022-09-14] MEDS: ENOXAPARIN INJ 30 MG/0.3 ML SYR SQ SCH (08:59)
[2022-09-14] MEDS: POLYETHYLENE (MIRALAX) 17 GM PACK PO SCH (09:00)
[2022-09-14] MEDS: FLUoxetine HCL 20 MG CAP PO SCH (09:00)
[2022-09-14] MEDS: MULTIVITAMIN TAB PO SCH (09:00)
[2022-09-14] MEDS: LORATADINE 10 MG TAB PO SCH (09:00)
[2022-09-14] MEDS: DOCUSATE SODIUM 100 MG CAP PO SCH ×2 (09:01→20:44)
[2022-09-14] MEDS: PANTOprazole 40 MG TAB PO SCH (09:01)
[2022-09-14] MEDS: SENNA 8.6 MG TAB PO SCH (09:01)
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
--- NOTE | 2022-09-14 14:46 | XRay Report ---
KUB CLINICAL HISTORY: Constipation. FINDINGS: An AP supine abdominal radiograph is compared to study dated 05/01/2020. There is a nonobstr ucted abdominal bowel gas pattern. Moderate fecal retention is seen throughout the colon. No evidence of intraperitoneal free air is seen on this supine image. There are no abnormal abdominal calcificat ions. Cholecystectomy clips are noted in the right upper quadrant. There are pelvic phleboliths. The skeletal structures are osteopenic and appear intact. Postoperative and spondylotic change is seen in the lumbar spine. IMPRESSION: Moderate constipation. Electronically signed by: Gene Bledsoe M.D. 09/14/2022 2:44 PM
--- NOTE | 2022-09-14 17:41 | Hospitalist Progress Note ---
Date of Service September 14, 2022 Assessment & Plan (1) Encephalopathy: Plan: Metabolic encephalopathy due to UTI H/O Recurrent UTI H/O Stress incontinence/neurogenic bladder -CT Head:No acute intracranial abnormality. Urine Cx: growing Klebsiella Blood cultures: No growth We will complete Rocephin course tomorrow Constipation KUB Moderate constipation. Continue bowel regimen Encouraged to ambulate Had large bowel movement yesterday Dementia As per records Delirium precautions H/O Multiple sclerosis Currently not on medications Adjustment disorder H/O Anxiety/mood disorder Functional disability past tobacco abuse Continue fluoxetine Appreciate Psychiatry Input DVT Px: Lovenox SQ Code Status Full code Disposition SNF when insurance is approved Admission and Anticipated Discharge Date Admission Date: September 10, 2022 Subjective Patient is seen and examined at bedside Having lunch during my encounter Offers no new complaints No bowel movement today Denies any chest pain, dyspnea, dizziness, nausea, abdominal pain, dysuria, hematuria Waiting for placement Review of Systems Review of Systems: All systems reviewed & are unremarkable except as noted in Subjective Physical Exam Physical Exam: Physical Exam: Vitals signs as noted above General Appearance:Thin, no apparent distress Head: normocephalic, Atraumatic Eyes: normal inspection, EOMI Neck: supple, Trachea midline Respiratory/Chest: Normal breath sounds, CTA, No accessory muscle use Cardiovascular: S1, S2, No murmur Abdomen/GI:Soft, Non tender, Bowel sounds present Extremities/Musculoskeletal:normal inspection, no edema Neurologic/Psych:AAOX3, grossly no focal neurological deficits Skin: normal color, warm Results & Data Results & Data ([facility]) Vital Signs (Past 12 Hours) Vital Signs Temp Pulse Resp BP Pulse Ox O2 Del Method 09/14/22 16:40 36.8 C 80 16 119/76 96 Room Air 09/14/22 07:44 36.4 C L 72 16 104/64 95 Room Air
[2022-09-14] MEDS: traZODone HCL 100 MG TAB PO SCH (20:44)
[2022-09-14] MEDS: cefTRIAXone SODIUM 1,000 MG in DEXTROSE 5% 50 ML IV SCH (20:57)
[2022-09-15 06:27] LABS: Hematocrit (blood only) 35.8 % (34.1-44.9); Hemoglobin 11.8 g/dl (12.0-16.0); Mean Corpuscular Hemoglobin 30.6 pg (25.0-34.0); Mean Platelet Volume 9.5 fL (9.4-12.3); Platelet Count 251 K/uL (130-400); RDW Coefficient of Variation 13.4 % (11.5-14.5); RDW Standard Deviation 45.6 fL (36.4-46.3); Red Blood Count 3.85 M/uL (3.93-5.22); White Blood Count 4.45 K/ul (4.8-10.8)
[2022-09-15 07:00] LABS: Calcium 8.6 mg/dl (8.5-10.1); Creatinine Clr Calc Pharmacy 43.3 ml/min; Est GFR (African American) 90.4 ml/min; Potassium 4.1 mmol/L (3.5-5.1)
[2022-09-15] MEDS ORDERED: POLYETHYLENE (MIRALAX) 17 GM PACK PO SCH (09:00)
[2022-09-15] MEDS: MULTIVITAMIN TAB PO SCH (09:24)
[2022-09-15] MEDS: DOCUSATE SODIUM 100 MG CAP PO SCH (09:24)
[2022-09-15] MEDS: LORATADINE 10 MG TAB PO SCH (09:24)
[2022-09-15] MEDS: PANTOprazole 40 MG TAB PO SCH (09:24)
[2022-09-15] MEDS: SENNA 8.6 MG TAB PO SCH (09:24)
[2022-09-15] MEDS: FLUoxetine HCL 20 MG CAP PO SCH (09:24)
[2022-09-15] MEDS: ENOXAPARIN INJ 30 MG/0.3 ML SYR SQ SCH (09:24)
--- NOTE | 2022-09-15 09:48 | Hospitalist Progress Note ---
Date of Service September 15, 2022 Assessment & Plan (1) Encephalopathy: Plan: Metabolic encephalopathy due to UTI H/O Recurrent UTI H/O Stress incontinence/neurogenic bladder -CT Head:No acute intracranial abnormality. Urine Cx: growing Klebsiella Blood cultures: No growth Completed Rocephin course Constipation KUB Moderate constipation. Continue bowel regimen Encouraged to ambulate Had large bowel movement Dementia As per records Delirium precautions H/O Multiple sclerosis Currently not on medications Adjustment disorder H/O Anxiety/mood disorder Functional disability past tobacco abuse Continue fluoxetine Appreciate Psychiatry Input DVT Px: Lovenox SQ Code Status Full code Disposition - plan to DC to [facility] Admission and Anticipated Discharge Date Admission Date: September 10, 2022 Subjective Patient is seen in follow up of UTI Sitting in the chair in NAD Offers no new complaints Denies any chest pain, dyspnea, nausea, abdominal pain, dysuria, hematuria Plan to DC Review of Systems Review of Systems: All systems reviewed & are unremarkable except as noted in Subjective Physical Exam Physical Exam: General Appearance:Thin, no apparent distress Head: normocephalic, Atraumatic Eyes: normal inspection, EOMI Neck: supple Respiratory/Chest: Normal breath sounds, CTA, No accessory muscle use Cardiovascular: S1, S2, No murmur Abdomen/GI:Soft, Non tender, Bowel sounds present Extremities/Musculoskeletal:normal inspection, no edema Neurologic/Psych:AAOX3, able to answer simple questions appropriately, grossly no focal neurological deficits Skin: normal color, warm Results & Data Results & Data ([facility]) Vital Signs (Past 12 Hours) Vital Signs Temp Pulse Resp BP Pulse Ox O2 Del Method 09/15/22 07:34 36.7 C 72 18 122/72 95 Room Air Laboratory Results 09/15/22 09/15/22 Range/Units 05:51 05:51 WBC 4.45 L (4.8-10.8) K/ul RBC 3.85 L (3.93-5.22) M/uL Hgb 11.8 L (12.0-16.0) g/dl Hct 35.8 (34.1-44.9) % MCV 93.0 (80.0-100.0) fL MCH 30.6 (25.0-34.0) pg MCHC 33.0 (32.0-36.0) g/dL RDW Std Deviation 45.6 (36.4-46.3) fL RDW Coeff of Swetha 13.4 (11.5-14.5) % Plt Count 251 (130-400) K/uL MPV 9.5 (9.4-12.3) fL Sodium 138 (136-145) mmol/L Potassium 4.1 (3.5-5.1) mmol/L Chloride 106 (98-107) mmol/L Carbon Dioxide 27 (21-32) mmol/L Anion Gap 5 (3-11) BUN 18 (6-23) mg/dl Creatinine 0.72 (0.6-1.2) mg/dl Est Cr Clr Drug Dosing 43.3 ml/min Est GFR ( Amer) 90.4 ml/min Est GFR (Non-Af Amer) 78.0 ml/min BUN/Creatinine Ratio 25.0 H (10-20) Glucose 101 H (70-99(Fasting)) mg/dl Calcium 8.6 (8.5-10.1) mg/dl Medications Administered Current Inpatient Medications Acetaminophen (Acetaminophen 325 Mg Tab) 650 mg PO Q4H PRN PRN Reason: pain/fever Stop: 10/10/22 05:15 Bisacodyl (Bisacodyl 10 Mg Supp) 10 mg TN DAILY PRN PRN Reason: Constipation Stop: 10/13/22 13:07 Last Admin: 09/13/22 16:26 Dose: 10 mg Docusate Sodium (Docusate Sodium 100 Mg Cap) 100 mg PO BID [facility] Stop: 10/12/22 20:59 Last Admin: 09/15/22 09:24 Dose: 100 mg Enoxaparin Sodium (Enoxaparin Inj 30 Mg/0.3 Ml Syr) 30 mg SQ QAM [facility] Stop: 10/10/22 08:59 Last Admin: 09/15/22 09:24 Dose: 30 mg Fluoxetine HCl (Fluoxetine Hcl 20 Mg Cap) 40 mg PO QAM [facility] Stop: 10/10/22 08:59 Last Admin: 09/15/22 09:24 Dose: 40 mg Fluticasone Propionate (Fluticasone Propionate Na Spr 16 Gm Btl) 2 sprays NA HS PRN PRN Reason: allergic nasal congestion Stop: 10/12/22 00:18 Last Admin: 09/14/22 08:58 Dose: 2 sprays Haloperidol Lactate (Haloperidol Lactate 5 Mg/Ml 1 Ml Vial) 2.5 mg IM Q2H PRN PRN Reason: Agitation Stop: 10/10/22 02:23 Ceftriaxone Sodium 1,000 mg/ (Dextrose) 60 mls @ 100 mls/hr IV Q24H EDGAR; Protocol Stop: 09/15/22 21:59 Last Infusion: 09/14/22 21:48 Dose: Infused Loratadine (Loratadine 10 Mg Tab) 10 mg PO DAILY [facility] Stop: 10/10/22 08:59 Last Admin: 09/15/22 09:24 Dose: 10 mg Melatonin (Melatonin 3 Mg Tab) 9 mg PO HSZ PRN PRN Reason: Sleep Stop: 10/10/22 05:28 Last Admin: 09/12/22 00:56 Dose: 9 mg Multivitamins (Multivitamin Tab) 1 tab PO QAM [facility]GAR Stop: 10/10/22 08:59 Last Admin: 09/15/22 09:24 Dose: 1 tab Pantoprazole Sodium (Pantoprazole 40 Mg Tab) 40 mg PO QAM [facility] Stop: 10/10/22 08:59 Last Admin: 09/15/22 09:24 Dose: 40 mg Polyethylene Glycol (Polyethylene (Miralax) 17 Gm Pack) 17 gm PO DAILY [facility] Stop: 10/15/22 08:59 Last Admin: 09/15/22 09:23 Dose: 17 gm Sennosides (Senna 8.6 Mg Tab) 8.6 mg PO QAM [facility] Stop: 10/13/22 13:14 Last Admin: 09/15/22 09:24 Dose: 8.6 mg Trazodone HCl (Trazodone Hcl 100 Mg Tab) 100 mg PO HS [facility] Stop: 10/10/22 20:59 Last Admin: 09/14/22 20:44 Dose: 100 mg
--- NOTE | 2022-09-15 12:29 | Discharge Summary ---
Date of Service September 15, 2022 Admission HPI Per Admitting Provider History obtained from patient, family, and records. Patient is a fair historian. Medical history significant for dementia, multiple sclerosis, anxiety/mood disorder, stress incontinence, recurrent UTIs, neurogenic bladder, anxiety, past tobacco abuse. Last confinement April 2020 for small bowel obstruction status post surgery. Family has had increasing concerns about patient's safety at home the last few months. Patient having trouble caring for patient secondary to medical issues. Family relayed concerns to PCP on outpatient visit last month. Outpatient case management was to assist family in dementia unit placement as per outpatient notes. Patient wandered outside home today. Patient brought by family to ER for evaluation. Patient denies headache, chest pain, shortness of breath, abdominal pain, dysuria symptoms. IV Ceftriaxone administered at the ER for possible UTI. MEDICAL HISTORY: As above. SURGERIES: section, Tonsillectomy, Ovarian cyst drainage, Cystoscopy, Hysterectomy, Appendectomy, ex lap/SBO release, back surgery, cholecystectomy. FAMILY HISTORY: Lung cancer, melanoma, heart disease, stroke PERSONAL SOCIAL HISTORY: Past tobacco abuse. 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 Lives with . Admission Exam Per Admitting Provider GENERAL: Oriented to month and year, comfortable, anxious, no respiratory distress SKIN: Normal color, warm HEENT: [place] palpebral conjunctivae, no ptosis, dry buccal mucosa NECK : Supple, no tenderness CHEST : CTA, no tenderness HEART : RRR, no obvious murmurs ABDOMEN: Some distention, nontender EXTREMITIES : No LE swelling/tenderness, no other conspicuous deformities noted NEUROLOGIC : Coherent, oriented to month and year, no facial asymmetry, and stance not assessed Principal Diagnosis UTI Discharge Exam General Appearance:Thin, no apparent distress Head: normocephalic, Atraumatic Eyes: normal inspection, EOMI Neck: supple Respiratory/Chest: Normal breath sounds, CTA, No accessory muscle use Cardiovascular: S1, S2, No murmur Abdomen/GI:Soft, Non tender, Bowel sounds present Extremities/Musculoskeletal:normal inspection, no edema Neurologic/Psych:AAOX3, able to answer simple questions appropriately, grossly no focal neurological deficits Skin: normal color, warm Discharge Data Allergies Allergy/AdvReac Type Severity Reaction Status Date / Time scopolamine Allergy Unknown JOINT SWELL Verified 07/03/20 17:55 Consultations 09/09/22 21:42 ED Decision to Admit Stat 10/24/22 15:01 Consult Psychiatry Routine Ordered Studies 09/09/22 20:23 CT head/brain wo con Stat FINDINGS: No acute intracranial hemorrhage, midline shift, intracranial mass, hydrocephalus, territorial ischemia or abnormal extra-axial collection. Developmental incomplete bony fusion involves the posterior arch of C1. Involutional changes with ex vacuo ventriculomegaly. White matter hypodensities suggest chronic microvascular ischemic disease. The calvarium is intact. Small left mastoid effusion. The right mastoid air cells and paranasal sinuses are clear. Prior bilateral lens repair. IMPRESSION: No acute intracranial abnormality. Hospital Course (1) Encephalopathy: Metabolic encephalopathy due to UTI H/O Recurrent UTI H/O Stress incontinence/neurogenic bladder -CT Head:No acute intracranial abnormality. Urine Cx: growing Klebsiella Blood cultures: No growth Completed Rocephin course Constipation KUB Moderate constipation. Continue bowel regimen Encouraged to ambulate Had large bowel movement Dementia As per records Delirium precautions H/O Multiple sclerosis Currently not on medications Adjustment disorder H/O Anxiety/mood disorder Functional disability past tobacco abuse Continue fluoxetine Appreciate Psychiatry Input Disposition - [facility] Total Time Total Time Spent Total Time Spent (In Minutes): 35 Discharge Plan Discharge Items Patient Disposition: Transfer Snf Fac Reason For Visit: ENCEPHALOPATHY, COMP UTI Discharge Diagnosis: UTI Activity: Per Instructions section Non-emergency contact: Primary Care Provider Call non-emergency contact if: you have any medication questions and your symptoms worsen Follow-up/Referrals: Yinka Lewis, [Primary Care Provider] - Diet: Regular Addtl Attending Provider Instructions: Follow-up with primary care provider within 1 week. Monitor for constipation, if you do not have a bowel movement in 2 to 3 days, take MiraLAX or senna. Continue taking your docusate daily as previously. Make sure to have a good hygiene, and if using pads, exchange them frequently to prevent UTI. Pending Studies at Discharge: No Stand-Alone Forms: [facility] Skilled Items Patient informed of condition?: Yes DNR: No Discharge Level of Care: Skilled Communicable Disease: No Discharge Prognosis: Stable Lines: None Urinary Catheter: No Medications and DC Order Prescriptions: Continued multivitamin Tablet 1 tab PO QAM fluoxetine 40 mg capsule 40 mg PO QAM trazodone 50 mg tablet 100 mg PO HS acetaminophen-codeine 300-30 mg tablet 1 tab PO Q4H PRN (Reason: Pain) omeprazole 20 mg capsule,delayed release(DR/EC) 20 mg PO QAM Tylenol 500 MG tablet 500 mg PO DAILY docusate sodium 100 mg Tablet 100 mg PO DAILY loratadine 10 mg tablet 10 mg PO DAILY melatonin 10 mg Tablet 10 mg PO HS PRN (Reason: Sleep) [facility] 40-10-5-3.3 mg Tablet 1 tab PO DAILY Discharge Orders: Discharge Order (Routine); Ordered 09/15/22 Ordered By: Scottie Pfeiffer Admission Data Admit Date/Time: 09/10/22 02:22 Attending Provider: Scottie Pfeiffer Admit Provider: Danny Erazo Primary Care Provider: Yinka Lewis Other Providers: Danny Erazo ; [place] ; Chelita Meadows ; Katty Patel ; Keshia Ramos ; Sudheer Malik
== END 2022-09-15 15:32 | DRG 689 ==
LOC: ED 19:01 → 3N 09-10 02:22 → SUATTDRO 09-10 02:22 → 3N 09-10 04:56